=== PATIENT | female | born 1945 | race Caucasian/White ===

== ENCOUNTER 2016-08-10 10:31 | Inpatient (IN) | payer MEDICARE, OTHER ==
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
--- NOTE | 2016-08-03 18:29 | HP ---
HISTORY AND PHYSICAL: DATE OF SURGERY: 08/10/16 PROCEDURE: Right total hip arthroplasty. CHIEF COMPLAINT: Right hip pain. HISTORY OF PRESENT ILLNESS: Ms. Gutiérrez is a 71-year-old female with complaints of right hip pain. S he has failed conservative management and has elected to proceed with a right total hip arthroplasty . The surgery is scheduled for 08/10/[address] Mustafa. PAST MEDICAL HISTORY: Hypothyroidism, obesity, asthma, depression, history of TIA, and high cholest william. PAST SURGICAL HISTORY: Bilateral total knee arthroplasties, cholecystectomy. CURRENT MEDICATIONS: 1. Buspirone 50 mg. 2. Venlafaxine ER 150 mg. 3. Omeprazole 20 mg. 4. Levothyroxine. 5. Atorvastatin calcium 40 mg. 6. Diclofenac 75. 7. VESIcare 5 mg. 8. Gabapentin 300 mg. 9. Multivitamin. 10. Potassium. 11. Oxybutynin chloride. ALLERGIES: DILANTIN. FAMILY HISTORY: Heart disease. SOCIAL HISTORY: She is a 71-year-old female. She lives with her [id number]. She does not smoke , use drugs or alcohol. REVIEW OF SYSTEMS: A complete 14-point review of systems was reviewed with the patient. It is posi tive for hypothyroidism. PHYSICAL EXAMINATION GENERAL: She is well developed, well nourished. She is in no acute distress. VITAL SIGNS: She stands 5 feet 4 inches tall, weighs 218 pounds. Her blood pressure is 138/91, her heart rate is 81. HEENT: Normocephalic, atraumatic. NECK: Supple. No palpable lymph nodes. Trachea is midline. PULMONARY: Lungs are clear to auscultation. CARDIO: Regular rate and rhythm. Strong S1, S2. ABDOMEN: Soft, nontender, and nondistended. MUSCULOSKELETAL: Right lower extremity, skin intact. She has limited internal and external rotatio n of her right hip. She walks with an antalgic type gait favoring her right leg. Her lower extremi ty muscle group strengths are intact to 5/5. She has intact sensation. 2+ dorsalis pedis pulses. NEUROLOGIC: She is alert and oriented x3. Cranial nerves II through XII are intact. ASSESSMENT AND PLAN: Ms. Gutiérrze is a 71-year-old female with complaints of right hip pain secondary to advanced osteoarthritis. She has failed conservative management and has elected to proceed with a right total hip arthroplasty. The surgery is scheduled for 08/10/[address] Mustafa d iscussed the risks and benefits of the surgery at today's visit and all of her questions were answer ed. Coumadin, Percocet, and Colace were sent to her pharmacy for postoperative pain control and DVT prophylaxis. She will see Dr. Mustafa back 10 to 14 days after the surgery. KOLBY RICHMOND [id number]/[facility] #: [id number]
[~2016-08-10 10:31] MED LIST: Buffered Lidocaine 1% SYRIN* 3 ML/SYR SYRINGE INTRADERM ONE; Dexamethasone IV* 4 MG/ML 1 ML (4 MG) IV SLOW PU ONE; Dexmedetomidine* 200 MCG/2 ML 2 ML VIAL ONE; DiMENhydriNATE IV* 50 MG/ML VIAL IV PUSH PRN; Famotidine IV* 10 MG/ML 2 ML (20 mg) IV ONE; HYDROmorphone* 1 MG/ML 1 ML SYR ONE; Midazolam* 1 MG/ML 2 ML VIAL (2 MG) ONE; Morphine PF AMP (0.5MG/ML)* 5 MG/10 ML AMP ONE; Ondansetron INJ* 2 MG/ML VIAL IV PRN; PROCHLORPERAZINE INJ 5 MG/ML 2 ML VIAL IV PRN; fentaNYL* 50 MCG/ML 2 ML VIAL (100 MCG VIAL) IV PRN; fentaNYL* 50 MCG/ML 2 ML VIAL (100 MCG VIAL) ONE
[2016-08-10] MEDS ORDERED: ceFAZolin 2 GM PREMIX(*) 2 GM/50 ML BAG IVPB ONE (10:48)
[2016-08-10] MEDS ORDERED: Famotidine IV* 10 MG/ML 2 ML (20 mg) ONE (10:48)
[2016-08-10] MEDS ORDERED: Dexamethasone IV* 4 MG/ML 1 ML (4 MG) ONE (10:48)
[2016-08-10] MEDS ORDERED: Bupivacaine 0.5% SDV PF* 30 ML VIAL ONE (10:49)
[2016-08-10] MEDS ORDERED: Propofol* 10 MG/ML 20 ML BTL IV PUSH ONE ×2 (10:49→14:44)
[2016-08-10] MEDS ORDERED: Dexmedetomidine* 200 MCG/2 ML 2 ML VIAL ONE (10:49)
[2016-08-10] MEDS ORDERED: HYDROmorphone* 1 MG/ML 1 ML SYR ONE ×2 (10:51→13:41)
[2016-08-10] MEDS ORDERED: fentaNYL* 50 MCG/ML 2 ML VIAL (100 MCG VIAL) ONE (12:37)
[2016-08-10] MEDS ORDERED: VASOPRESSIN 20 UNITS/ML 1 ML VIAL ONE (13:27)
--- NOTE | 2016-08-10 14:05 | RAD ---
INDICATION: Total right hip replacement intraoperative study. TECHNIQUE: An AP view of the right hip was obtained in the operating room. FINDINGS: The patient is undergoing a total right hip replacement surgery. The acetabular prostheses appears in place. There is a femoral prostheses template in place. IMPRESSION: INTRAOPERATIVE CONTROL FILMS.
[2016-08-10] MEDS ORDERED: Polyethylene Glycol 3350* 17 GM PACKET PO PRN (15:08)
[2016-08-10] MEDS ORDERED: diPHENhydraMINE IV* 50 MG/ML 1 ml VIAL (BENADRYL) IV PRN ×2 (15:08→15:11)
[2016-08-10] MEDS ORDERED: Acetaminophen TAB* 325 MG PO PRN (15:08)
[2016-08-10] MEDS ORDERED: oxyCODONE TAB* 5 MG TAB PO PRN (15:08)
[2016-08-10] MEDS ORDERED: oxyCODONE/Acetamin 5/325 MG* TAB PO PRN ×2 (15:08)
[2016-08-10] MEDS ORDERED: Magnesium Hydroxide LIQ* 30 ML UDC PO PRN (15:08)
[2016-08-10] MEDS ORDERED: Bisacodyl SUPP* 10 MG SUPP PR PRN (15:08)
[2016-08-10] MEDS ORDERED: Morphine INJ* 2 MG/ML 1 ML SYRINGE IV PRN (15:08)
[2016-08-10] MEDS ORDERED: LACTULOSE* 30 ML UDC PO PRN (15:08)
[2016-08-10] MEDS ORDERED: Ondansetron TAB* 4 MG PO PRN (15:08)
[2016-08-10] MEDS ORDERED: Naloxone* 0.4 MG/ML 1 ML VIAL IV PRN (15:11)
[2016-08-10] MEDS ORDERED: Ondansetron INJ* 2 MG/ML VIAL IV PRN (15:11)
[2016-08-10] MEDS ORDERED: DiMENhydriNATE IV* 50 MG/ML VIAL IV PUSH PRN (15:11)
[2016-08-10] MEDS ORDERED: PROCHLORPERAZINE INJ 5 MG/ML 2 ML VIAL IV PRN (15:11)
--- NOTE | 2016-08-10 16:12 | RAD ---
Indication: Right hip arthroplasty. 2 views of the right hip demonstrates bipolar right hip arthroplasty in satisfactory position noted. No evidence of periprosthetic fracture is noted. IMPRESSION: Right hip replacement in satisfactory position.
--- NOTE | 2016-08-10 16:13 | RAD ---
Indication: Right hip arthroplasty. Single view of the pelvis demonstrates right hip bipolar arthroplasty in place. Components appear to be well seated. Pelvic ring is grossly intact where visualized. IMPRESSION: Right hip replacement in satisfactory position.
[2016-08-10] MEDS ORDERED: diPHENhydraMINE IV* 50 MG/ML 1 ml VIAL (BENADRYL) ONE (16:41)
[2016-08-10] MEDS ORDERED: Warfarin TAB(*) 6 MG PO ONE (17:00)
[2016-08-10] MEDS: ceFAZolin 1 GM in Dextrose (*) 1 GM/50 ML BAG IVPB SCH (17:49)
[2016-08-10] MEDS: Nalbuphine* 20 MG/ML 1 ML VIAL IV PRN (18:00)
[2016-08-10] MEDS: oxyCODONE/Acetamin 5/325 MG* TAB PO PRN (19:36)
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
--- NOTE | 2016-08-10 20:55 | CONS ---
MEDICAL CONSULTATION REPORT:* ADDENDUM: Please note that Plavix was clarified with the patient. This is no longer an active medication. Review of her past hospitalization reveals that she was admitted in September of 2015 with an episode of confusion, which was concerning for either a TIA versus a complex migraine. Her aspirin was discontinued at that time and she was started on Plavix. The patient and her family are unsure of what the circumstances were of discontinuing the Plavix, but she is certain that she has not been taking that in several months and aspirin was not resumed. Would recommend discussing resuming a daily aspirin following discharge with her primary care provider. The patient has no known coronary disease or history of prior CVA, but certainly has multiple risk factors and may benefit from daily low-dose aspirin therapy but this would be contraindicated with the exception of only high-risk patients in the immediate postoperative period. In regards to DVT prophylaxis, Lovenox and Coumadin have been ordered by the orthopedic surgery team. KOLBY COTA [id number]/[facility] #: [id number] MTDD
[2016-08-10] MEDS: busPIRone TAB* 15 MG PO SCH (22:19)
[2016-08-10] MEDS: Gabapentin CAP(*) 300 MG PO SCH (22:20)
[2016-08-10] MEDS: Docusate CAP* 100 MG PO SCH (22:20)
[2016-08-11] MEDS: Nalbuphine* 20 MG/ML 1 ML VIAL IV PRN (00:24)
[2016-08-11] MEDS: ceFAZolin 1 GM in Dextrose (*) 1 GM/50 ML BAG IVPB SCH ×2 (00:24→08:17)
[2016-08-11] MEDS: oxyCODONE/Acetamin 5/325 MG* TAB PO PRN ×6 (00:26→22:32)
--- NOTE | 2016-08-11 02:28 | OP ---
OPERATIVE NOTE: DATE OF OPERATION: 08/10/16 DATE OF : 43 SURGEON: Attending Surgeon: Barbara Mustafa MD DEVICE PROCESSING ENGINEER: KOLBY Andres ANESTHESIOLOGIST: Nicholas Chou MD ANESTHESIA: Spinal. PRE-OP DIAGNOSIS: Severe end-stage degenerative osteoarthritis of the right hip joint. POST-OP DIAGNOSIS: Severe end-stage degenerative osteoarthritis of the right hip joint. OPERATIVE PROCEDURE: Right total hip arthroplasty. COMPLICATIONS: None. ESTIMATED BLOOD LOSS: 300 cc. SPECIMEN: Femoral head and acetabular reaming, sent to pathology. HARDWARE USED: This is Samson uncemented total hip hardware. For the acetabulum, a Tritanium natalia spherical Cluster Hole Shell size 50D with 125-mm cancellous bone screw. MDM cement with liner 38D. For the femoral stem, an accolade TMZF size 2.5 with 127-degree neck. For the MDM liner, a 22.2/3 8/38D liner. For the [place], LFIT femoral head 22.2 +8. BRIEF HISTORY/INDICATION: Ms. Gutiérrez is a 71-year-old female with several years of increasingly duc re right hip pain. She failed conservative treatment with antiinflammatories, pain medications, phy sical therapy, and ambulatory assistive devices. Radiographs confirmed [id number] osteoarthritis. Due to continued pain and decreased quality of life, she elected to undergo right total hip arthro plasty. Informed consent was obtained from the patient. She understood the risks of the procedure included but were not limited to bleeding, infection, damage to nearby structures, continued pain, need for f urther surgery, intraoperative fracture, nerve palsy, hardware failure or loosening, dislocation, le g length discrepancy, stroke, heart attack, blood clot, and . She wishes to proceed. INTRAOPERATIVE FINDINGS: Intraoperatively, the patient was noted to have severe end-stage arthritis with loss of cartilage along the entire acetabulum and femoral head. Significant osteophyte format ion around the acetabulum. DESCRIPTION OF PROCEDURE: Ms. Gutiérrez was identified in the preanesthesia unit. Her right lower extr emity was marked as the correct operative side. Informed consent was signed and placed in the chart . The patient was taken to the operating room and placed under spinal anesthesia. A Cunningham catheter was placed. She was placed in the left lateral decubitus position on the peg board. All bony prom inences were carefully padded. Right lower extremity was prepped and draped in the usual sterile fa shion. Preop time-out was made to correctly identify the patient's side and site once again. Appropriate p erioperative antibiotics were given. A 15-cm posterior skin incision was made with a 10 blade and c arried down to the lateral fascia layer. The lateral fascia layer was incised in line with the skin incision. Charnley retractor was placed. Piriformis and conjoined tendons were identified. These were elevated off the posterolateral femur using electrocautery and tagged with two #5 Ethibonds. N ext, electrocautery was used to make a standard posterolateral capsular flap. This capsule was tagg ed with two #5 Ethibonds. The hip was carefully dislocated. Lesser troch to the center of the femoral head measured 55 mm. A n oscillating saw was used to make the appropriate femoral neck cut. Femoral head was sent to patho logy. After appropriate placement of the retractors, the acetabulum was visualized. Long- handled knife w as used to remove any remaining labrum. Acetabulum was sequentially reamed up to a size 49. 49 tri al had excellent fit. A Tritanium cluster hole shell size 50D was chosen as the final cut. Good bl eeding bone bed was visualized. The Tritanium cup was impacted into the acetabulum without difficult y. There was satisfactory abductioning, good anteversion, and good stability. A 125 mm screw was p laced in the superoposterior quadrant for extra stability. An MDM cement with liner 38D was then im pacted into the acetabulum. The liner was checked and rechecked for stability and noted to be stabl e. Next, attention was turned to preparation of the femoral canal. Box cut osteotome and canal finder were used to enter the proximal femur. The femur was sequentially broached up to a size 2.5 and 2.5 broach had excellent stability. An 127-degree neck trial with a 22 +0/38D head and liner were chos en. Lesser troch to the center of the femoral head measured 52 mm. A +3 femoral head was chosen an d the head was reduced. Hip was taken through a range of motion and noted to be stable in all posit ions. All trials were carefully removed. Final implants shows an Accolade TMZF size 2.5 with a 127-degree neck. This was impacted into the femoral neck canal without difficulty. Good stability of the efren m and the canal. 22 +3 femoral head was chosen and the lesser troch to the center of the femoral he ad measured 52 mm. Therefore, a +8 femoral head was chosen. A 22.2 +8 LFIT V40 femoral head with an MDM X3 insert for MDM liner 22.2/38/38D. This was impacted onto the femoral neck. Lesser troch to the center of the femoral head measured 55 mm. The hip was reduced and taken through a range of mot ion. The hip was stable in all positions. There was good soft tissue tension. The hip was copious ly irrigated with sterile saline. Previously tagged capsule and tendons were reapproximated to the posterolateral femur through 2 troc hanteric drill holes. The lateral fascia layer was closed using interrupted #1 Vicryls. The hip wa s once again copiously irrigated with sterile saline. The rest of the incision was closed in a laye red fashion using 0 and 2-0 Vicryls. The skin was closed using running 3-0 Monocryl suture and Derm abond. Sterile Adaptic, 4x4s, and paper tapes were used to cover this. The patient's anesthesia was reversed without difficulty. She was taken to the PACU in stable condi tion. Intended weightbearing will be weightbearing as tolerated with posterior hip precautions. In tended DVT prophylaxis will be Coumadin with a Lovenox bridge. [id number]/[facility] #: [id number]
[2016-08-11] MEDS ORDERED: diPHENhydraMINE IV* 50 MG/ML 1 ml VIAL (BENADRYL) IV PRN (04:00)
[2016-08-11] MEDS ORDERED: Morphine INJ* 2 MG/ML 1 ML SYRINGE IV PRN (04:00)
[2016-08-11] MEDS ORDERED: oxyCODONE/Acetamin 5/325 MG* TAB PO PRN (04:00)
[2016-08-11] MEDS ORDERED: Ondansetron TAB* 4 MG PO PRN (04:00)
[2016-08-11] MEDS: Levothyroxine TAB* 75 MCG TAB PO SCH (05:39)
[2016-08-11 07:27] LABS: Hematocrit 31 % (35-47); Hemoglobin 10.3 g/dl (12.0-16.0)
[2016-08-11 07:36] LABS: Albumin 3.7 g/dL (3.2-5.2); BUN/Creatinine Ratio 19.4 (8-20); Calcium 8.4 mg/dL (8.6-10.3); EGFR African American 111.3 (>60); EGFR Non-African American 86.5 (>60); Globulin 1.9 g/dL (2-4); Potassium 4.3 mmol/L (3.5-5.0); Total Bilirubin 0.6 mg/dL (0.2-1.0); Total Protein 5.6 g/dL (6.4-8.9)
[2016-08-11] MEDS: Docusate CAP* 100 MG PO SCH ×2 (08:18→20:09)
[2016-08-11] MEDS: CMC:Solifenacin(NF) 5 MG TAB PO SCH (08:18)
[2016-08-11] MEDS: Venlafaxine EXT RELEASE CAP* 75 MG PO SCH (08:18)
[2016-08-11] MEDS: Omeprazole CAP* 20 MG PO SCH (08:19)
[2016-08-11] MEDS: busPIRone TAB* 15 MG PO SCH ×2 (08:19→20:10)
[2016-08-11] MEDS: Albuterol HFA INHALER* 8 gm MDI INH PRN (08:26)
[2016-08-11] MEDS ORDERED: Atorvastatin* 40 MG TAB PO SCH (09:00)
--- NOTE | 2016-08-11 10:00 | PN ---
Progress Note - Progress Note SOAP: Subjective: Pt. is alert, pain is controlled. Objective: RLE - dressing c/d/i. thigh soft, distally +df/pf, full sens lt, 2+ dp pulse. Vital Signs: Temp Pulse Resp BP Pulse Ox 98.0 F 78 16 101/75 94 08/11/16 07:27 08/11/16 07:27 08/11/16 09:52 08/11/16 07:27 08/11/16 07:27 Laboratory Results - last 24 hr 08/11/16 08/11/16 08/11/16 07:14 07:14 07:14 Hgb 10.3 L Hct 31 L INR (Anticoag Therapy) 1.06 Sodium 135 Potassium 4.3 Chloride 101 Carbon Dioxide 28 Anion Gap 6 BUN 13 Creatinine 0.67 Est GFR ( Amer) 111.3 Est GFR (Non-Af Amer) 86.5 BUN/Creatinine Ratio 19.4 Glucose 129 H Calcium 8.4 L Total Bilirubin 0.60 AST 39 ALT 42 Alkaline Phosphatase 101 Total Protein 5.6 L Albumin 3.7 Globulin 1.9 L Albumin/Globulin Ratio 1.9 Assessment: 71 yo F pod 1 s/p RTHA Plan: wbat with post hip precautions pt/ot 8 mg coumadin tonight with lovenox bridge xrays satisfactory
--- NOTE | 2016-08-11 10:36 | PN ---
Subjective Date of Service: 08/11/16 Interval History: Patient offers no acute complaints. She states that her pain is well controlled. No CP, SOB, cough, abdominal pain, n/v. Objective Active Medications: Acetaminophen (Tylenol Tab*) 650 mg PO Q4H PRN PRN Reason: PAIN OR TEMPERATURE Albuterol (Ventolin Hfa Inhaler*) 1 puff INH QID PRN PRN Reason: SOB/wheeze Last Admin: 08/11/16 08:26 Dose: 1 puff Atorvastatin Calcium (Lipitor*) 40 mg PO DAILY [facility] Last Admin: 08/11/16 08:18 Dose: 40 mg Bisacodyl (Dulcolax Supp*) 10 mg [place] DAILY PRN PRN Reason: constipation Buspirone HCl (Buspar Tab *) 22.5 mg PO BID [facility] Last Admin: 08/11/16 08:19 Dose: 22.5 mg Diphenhydramine HCl (Benadryl Iv*) 12.5 mg IV Q6H PRN PRN Reason: PRURITIS Docusate Sodium (Colace Cap*) 100 mg PO BID [facility] Last Admin: 08/11/16 08:18 Dose: 100 mg Enoxaparin Sodium (Lovenox(*)) 30 mg SUBCUT Q24H [facility] Gabapentin (Neurontin Cap(*)) 600 mg PO BEDTIME [facility] Last Admin: 08/10/16 22:20 Dose: 600 mg Lactated Ringer's (Lactated Ringers 1000 Ml Bag*) 1,000 mls @ 100 mls/hr IV PER RATE [facility] Last Admin: 08/11/16 04:00 Dose: 100 mls/hr Lactulose (Lactulose*) 30 ml PO Q6H PRN PRN Reason: constipation Levothyroxine Sodium (Synthroid Tab*) 75 mcg PO 0600 [facility] Last Admin: 08/11/16 05:39 Dose: 75 mcg Magnesium Hydroxide (Milk Of Magnesia Liq*) 30 ml PO Q6H PRN PRN Reason: constipation Morphine Sulfate (Morphine Inj (Syringe)*) 2 mg IV Q2H PRN PRN Reason: PAIN Omeprazole (Prilosec Cap*) 20 mg PO DAILY [facility] Last Admin: 08/11/16 08:19 Dose: 20 mg Ondansetron HCl (Zofran Tab*) 4 mg PO Q6H PRN PRN Reason: NAUSEA Oxycodone HCl (Roxycodone Tab*) 10 mg PO Q4H PRN PRN Reason: SEVERE PAIN Oxycodone/Acetaminophen (Percocet 5/325 Tab*) 1 tab PO Q3H PRN PRN Reason: PAIN - MODERATE Oxycodone/Acetaminophen (Percocet 5/325 Tab*) 2 tab PO Q3H PRN PRN Reason: PAIN - MODERATE Last Admin: 08/11/16 09:52 Dose: 2 tab Polyethylene Glycol/Electrolytes (Miralax*) 17 gm PO DAILY PRN PRN Reason: Constipation Solifenacin (Vesicare(Nf)) 5 mg PO DAILY [facility] Last Admin: 08/11/16 08:18 Dose: 5 mg Venlafaxine HCl (Effexor Xr Cap*) 150 mg PO DAILY [facility] Last Admin: 08/11/16 08:18 Dose: 150 mg Warfarin Sodium (Coumadin Tab(*)) 8 mg PO ONCE@1700 ONE PRN Reason: Protocol Stop: 08/11/16 17:01 Vital Signs: Temp Pulse Resp BP Pulse Ox 98.0 F 78 16 101/75 94 08/11/16 07:27 08/11/16 07:27 08/11/16 09:52 08/11/16 07:27 08/11/16 07:27 Appearance: Well appearing in NAD Neck: NL Appearance and Movements; NL JVP Respiratory: Symmetrical Chest Expansion and Respiratory Effort, Clear to Auscultation Cardiovascular: NL Sounds; No Murmurs; No JVD, RRR Abdominal: NL Sounds; No Tenderness; No Distention Extremities: No Edema, - - hip immobilizer in place Skin: No Rash or Ulcers Neurological: Alert and Oriented x 3 Result Diagrams: 08/11/16 07:14 08/11/16 07:14 Assess/Plan/Problems-Billing Assessment: This is a 71 yo female with a h/o TBI with subsequent mild cognitive impairment as well as HTN, HLD, hypothyroidism, migraine HAs, mild RAD who is s/p R HUGO by Dr Msutafa 08/10/16. Hospitalist group has been consulted for medical co- management postoperatively. - Patient Problems (1) Status post hip replacement Comment: POD #1 Management per ortho Good pain control (2) Hyperglycemia Comment: FBG mildly elevated this am Will check HgbA1c, may be due recent surgery or a late snack (3) HTN (hypertension) Comment: Normotensive postoperatively She is not on any home antihypertensives Cont to monitor (4) TBI (traumatic brain injury) Comment: Mild cognitive impairment (5) Elevated transaminase level Comment: Elevated ALT and Alk phos noted on pre-op labs Repeat CMP this am shows resolution No abdominal complaints No further investigation necessary at this time (6) Asthma Comment: No exacerbation Continue prn albuterol. (7) Hyperlipidemia Comment: Continue statin. (8) Hypothyroid Comment: Continue levothyroxine. Recent TSH 2.8 Status and Disposition: Discharge planning per ortho. No acute medical concerns.
[2016-08-11] MEDS: Enoxaparin(*) 30 MG/0.3 ML SYR SUBCUT SCH (12:58)
[2016-08-11] MEDS ORDERED: Warfarin TAB(*) 4 MG PO ONE (17:00)
[2016-08-11] MEDS: Gabapentin CAP(*) 300 MG PO SCH (20:09)
[2016-08-12] MEDS: oxyCODONE/Acetamin 5/325 MG* TAB PO PRN (03:12)
[2016-08-12] MEDS: Albuterol HFA INHALER* 8 gm MDI INH PRN (06:12)
[2016-08-12] MEDS: Levothyroxine TAB* 75 MCG TAB PO SCH (06:38)
[2016-08-12 07:03] LABS: Hematocrit 31 % (35-47); Hemoglobin 10.5 g/dl (12.0-16.0); Mean Platelet Volume 8 um3 (7.4-10.4)
[2016-08-12] MEDS: CMC:Solifenacin(NF) 5 MG TAB PO SCH (08:55)
[2016-08-12] MEDS: busPIRone TAB* 15 MG PO SCH ×2 (08:55→20:47)
[2016-08-12] MEDS: Omeprazole CAP* 20 MG PO SCH (08:55)
[2016-08-12] MEDS: Venlafaxine EXT RELEASE CAP* 75 MG PO SCH (08:56)
[2016-08-12] MEDS: Docusate CAP* 100 MG PO SCH ×2 (08:56→20:47)
[2016-08-12] MEDS: oxyCODONE TAB* 5 MG TAB PO PRN ×3 (08:56→16:45)
--- NOTE | 2016-08-12 09:41 | PN ---
Progress Note - Progress Note SOAP: Subjective: Pt. is alert, having moderate pain today. Objective: RLE - dressing changed, inc c/d/i. thigh soft. distally nvi. Vital Signs: Temp Pulse Resp BP Pulse Ox 98.0 F 80 20 134/54 93 08/12/16 08:11 08/12/16 08:11 08/12/16 08:56 08/12/16 08:11 08/12/16 08:11 Laboratory Results - last 24 hr 08/11/16 08/12/16 08/12/16 07:14 06:51 06:51 Hgb 10.5 L Hct 31 L Plt Count 166 MPV 8 INR (Anticoag Therapy) 1.56 H Hemoglobin A1c 5.5 Assessment: 71 yo F pod 2 s/p RTHA Plan: wbat pt/ot post hip precautions 6 mg coumadin tonight, cont lovenox bridge plan d/c to home tomorrow am with vns
--- NOTE | 2016-08-12 10:49 | PN ---
Subjective Date of Service: 08/12/16 Interval History: Patient reports that she is doing fairly well this am. She is having some pain but reports it is manageable. Denies cough, SOB or CP. Denies abd pain, n/v Objective Active Medications: Acetaminophen (Tylenol Tab*) 650 mg PO Q4H PRN PRN Reason: PAIN OR TEMPERATURE Albuterol (Ventolin Hfa Inhaler*) 1 puff INH QID PRN PRN Reason: SOB/wheeze Last Admin: 08/12/16 06:12 Dose: 1 puff Atorvastatin Calcium (Lipitor*) 40 mg PO BEDTIME [facility] Bisacodyl (Dulcolax Supp*) 10 mg [place] DAILY PRN PRN Reason: constipation Buspirone HCl (Buspar Tab *) 22.5 mg PO BID [facility] Last Admin: 08/12/16 08:55 Dose: 22.5 mg Diphenhydramine HCl (Benadryl Iv*) 12.5 mg IV Q6H PRN PRN Reason: PRURITIS Docusate Sodium (Colace Cap*) 100 mg PO BID [facility] Last Admin: 08/12/16 08:56 Dose: 100 mg Enoxaparin Sodium (Lovenox(*)) 30 mg SUBCUT Q24H [facility] Last Admin: 08/11/16 12:58 Dose: 30 mg Gabapentin (Neurontin Cap(*)) 600 mg PO BEDTIME [facility] Last Admin: 08/11/16 20:09 Dose: 600 mg Lactated Ringer's (Lactated Ringers 1000 Ml Bag*) 1,000 mls @ 100 mls/hr IV PER RATE [facility] Last Admin: 08/11/16 04:00 Dose: 100 mls/hr Lactulose (Lactulose*) 30 ml PO Q6H PRN PRN Reason: constipation Levothyroxine Sodium (Synthroid Tab*) 75 mcg PO 0600 [facility] Last Admin: 08/12/16 06:38 Dose: 75 mcg Magnesium Hydroxide (Milk Of Magnesia Liq*) 30 ml PO Q6H PRN PRN Reason: constipation Morphine Sulfate (Morphine Inj (Syringe)*) 2 mg IV Q2H PRN PRN Reason: PAIN Omeprazole (Prilosec Cap*) 20 mg PO DAILY [facility] Last Admin: 08/12/16 08:55 Dose: 20 mg Ondansetron HCl (Zofran Tab*) 4 mg PO Q6H PRN PRN Reason: NAUSEA Oxycodone HCl (Roxycodone Tab*) 10 mg PO Q4H PRN PRN Reason: SEVERE PAIN Last Admin: 08/12/16 08:56 Dose: 10 mg Oxycodone/Acetaminophen (Percocet 5/325 Tab*) 1 tab PO Q3H PRN PRN Reason: PAIN - MODERATE Oxycodone/Acetaminophen (Percocet 5/325 Tab*) 2 tab PO Q3H PRN PRN Reason: PAIN - MODERATE Last Admin: 08/12/16 03:12 Dose: 2 tab Polyethylene Glycol/Electrolytes (Miralax*) 17 gm PO DAILY PRN PRN Reason: Constipation Solifenacin (Vesicare(Nf)) 5 mg PO DAILY [facility] Last Admin: 08/12/16 08:55 Dose: 5 mg Venlafaxine HCl (Effexor Xr Cap*) 150 mg PO DAILY [facility] Last Admin: 08/12/16 08:56 Dose: 150 mg Warfarin Sodium (Coumadin Tab(*)) 6 mg PO ONCE ONE PRN Reason: Protocol Stop: 08/12/16 17:01 Vital Signs: Temp Pulse Resp BP Pulse Ox 98.0 F 80 20 134/54 93 08/12/16 08:11 08/12/16 08:11 08/12/16 08:56 08/12/16 08:11 08/12/16 08:11 Appearance: Well appearing, slightly uncomfortable but NAD Neck: NL Appearance and Movements; NL JVP Respiratory: Symmetrical Chest Expansion and Respiratory Effort, Clear to Auscultation Cardiovascular: NL Sounds; No Murmurs; No JVD, RRR Abdominal: NL Sounds; No Tenderness; No Distention Extremities: No Edema Skin: No Rash or Ulcers Neurological: Alert and Oriented x 3 Result Diagrams: 08/12/16 06:51 08/11/16 07:14 Assess/Plan/Problems-Billing Assessment: This is a 71 yo female with a h/o TBI with subsequent mild cognitive impairment as well as HTN, HLD, hypothyroidism, migraine HAs, mild RAD who is s/p R HUGO by Dr Mustafa 08/10/16. Hospitalist group has been consulted for medical co- management postoperatively. - Patient Problems (1) Status post hip replacement Comment: POD #2 Management per ortho Good pain control (2) Hyperglycemia Comment: FBG mildly elevated yesterday HgbA1c 5.5% May be due recent surgery or a late snack No intervention or further monitoring necessary (3) HTN (hypertension) Comment: Normotensive postoperatively She is not on any home antihypertensives Cont to monitor (4) TBI (traumatic brain injury) Comment: Mild cognitive impairment (5) Elevated transaminase level Comment: Elevated ALT and Alk phos noted on pre-op labs Repeat CMP this am shows resolution No abdominal complaints No further investigation necessary at this time (6) Asthma Comment: No exacerbation Continue prn albuterol. (7) Hyperlipidemia Comment: Continue statin. (8) Hypothyroid Comment: Continue levothyroxine. Recent TSH 2.8 Status and Disposition: Discharge planning per ortho. No acute medical concerns.
[2016-08-12] MEDS: Enoxaparin(*) 30 MG/0.3 ML SYR SUBCUT SCH (13:03)
[2016-08-12] MEDS ORDERED: Warfarin TAB(*) 6 MG PO ONE (17:00)
[2016-08-12] MEDS: Gabapentin CAP(*) 300 MG PO SCH (20:47)
[2016-08-12] MEDS ORDERED: Atorvastatin* 40 MG TAB PO SCH (21:00)
[2016-08-13] MEDS: oxyCODONE TAB* 5 MG TAB PO PRN ×2 (01:56→06:07)
[2016-08-13] MEDS: Levothyroxine TAB* 75 MCG TAB PO SCH (06:07)
[2016-08-13 07:27] LABS: Hematocrit 29 % (35-47)
[2016-08-13] MEDS: Docusate CAP* 100 MG PO SCH (07:58)
[2016-08-13] MEDS: busPIRone TAB* 15 MG PO SCH (07:58)
[2016-08-13] MEDS: Venlafaxine EXT RELEASE CAP* 75 MG PO SCH (07:58)
[2016-08-13] MEDS: Omeprazole CAP* 20 MG PO SCH (07:58)
[2016-08-13] MEDS: CMC:Solifenacin(NF) 5 MG TAB PO SCH (07:59)
[2016-08-13] MEDS: oxyCODONE/Acetamin 5/325 MG* TAB PO PRN (09:59)
--- NOTE | 2016-08-13 10:00 | PN ---
Progress Note - Progress Note SOAP: Subjective: []Patient seen OOB in chair. Her present. No new complaints. Denies, SOB, CP or dizziness. Ready to go home this afternoon. Objective: [] Vital Signs Temp 98.0 F 08/13/16 07:41 Pulse 86 08/13/16 07:41 Resp 16 08/13/16 08:07 BP 122/47 08/13/16 07:41 Pulse Ox 92 08/13/16 08:00 Intake & Output 08/12/16 08/13/16 08/13/16 18:59 06:59 18:59 Intake Total 840 1200 Output Total 0 150 Balance -1210 1050 Intake: Oral 840 1200 Output: Urine 2049 150 Other: Estimated Void Medium Laboratory Results - last 24 hr 08/13/16 08/13/16 06:40 06:40 Hgb 10.0 L Hct 29 L INR (Anticoag Therapy) 2.47 H Right hip incision benign Calf non tender and soft no edema +DF/PF right ankle Assessment: []s/p Right total hip arthroplasty POD #3 Plan: []PT this am Hold Coumadin today discharge home today follow up 10- 14 days as scheduled with Dr. Mustafa
[2016-08-13] MEDS: Enoxaparin(*) 30 MG/0.3 ML SYR SUBCUT SCH (12:00)
[2016-08-13 12:02] VITALS: BP 155/72
--- NOTE | 2016-08-13 12:27 | PN ---
Subjective Date of Service: 08/13/16 Interval History: Plan for discharge home today by ortho. Patient offers no acute complaints. Objective Active Medications: Acetaminophen (Tylenol Tab*) 650 mg PO Q4H PRN PRN Reason: PAIN OR TEMPERATURE Last Admin: 08/12/16 14:07 Dose: 650 mg Albuterol (Ventolin Hfa Inhaler*) 1 puff INH QID PRN PRN Reason: SOB/wheeze Last Admin: 08/12/16 06:12 Dose: 1 puff Atorvastatin Calcium (Lipitor*) 40 mg PO BEDTIME [facility] Last Admin: 08/12/16 20:47 Dose: 40 mg Bisacodyl (Dulcolax Supp*) 10 mg [place] DAILY PRN PRN Reason: constipation Buspirone HCl (Buspar Tab *) 22.5 mg PO BID [facility] Last Admin: 08/13/16 07:58 Dose: 22.5 mg Diphenhydramine HCl (Benadryl Iv*) 12.5 mg IV Q6H PRN PRN Reason: PRURITIS Docusate Sodium (Colace Cap*) 100 mg PO BID [facility] Last Admin: 08/13/16 07:58 Dose: 100 mg Enoxaparin Sodium (Lovenox(*)) 30 mg SUBCUT Q24H [facility] Last Admin: 08/13/16 12:00 Dose: 30 mg Gabapentin (Neurontin Cap(*)) 600 mg PO BEDTIME [facility] Last Admin: 08/12/16 20:47 Dose: 600 mg Lactated Ringer's (Lactated Ringers 1000 Ml Bag*) 1,000 mls @ 100 mls/hr IV PER RATE [facility] Last Admin: 08/11/16 04:00 Dose: 100 mls/hr Lactulose (Lactulose*) 30 ml PO Q6H PRN PRN Reason: constipation Levothyroxine Sodium (Synthroid Tab*) 75 mcg PO 0600 [facility] Last Admin: 08/13/16 06:07 Dose: 75 mcg Magnesium Hydroxide (Milk Of Magnesia Liq*) 30 ml PO Q6H PRN PRN Reason: constipation Last Admin: 08/13/16 07:57 Dose: 30 ml Morphine Sulfate (Morphine Inj (Syringe)*) 2 mg IV Q2H PRN PRN Reason: PAIN Omeprazole (Prilosec Cap*) 20 mg PO DAILY [facility] Last Admin: 08/13/16 07:58 Dose: 20 mg Ondansetron HCl (Zofran Tab*) 4 mg PO Q6H PRN PRN Reason: NAUSEA Oxycodone HCl (Roxycodone Tab*) 10 mg PO Q4H PRN PRN Reason: SEVERE PAIN Last Admin: 08/13/16 06:07 Dose: 10 mg Oxycodone/Acetaminophen (Percocet 5/325 Tab*) 1 tab PO Q3H PRN PRN Reason: PAIN - MODERATE Oxycodone/Acetaminophen (Percocet 5/325 Tab*) 2 tab PO Q3H PRN PRN Reason: PAIN - MODERATE Last Admin: 08/13/16 09:59 Dose: 2 tab Polyethylene Glycol/Electrolytes (Miralax*) 17 gm PO DAILY PRN PRN Reason: Constipation Solifenacin (Vesicare(Nf)) 5 mg PO DAILY [facility] Last Admin: 08/13/16 07:59 Dose: 5 mg Venlafaxine HCl (Effexor Xr Cap*) 150 mg PO DAILY [facility] Last Admin: 08/13/16 07:58 Dose: 150 mg Vital Signs: Temp Pulse Resp BP Pulse Ox 98.2 F 92 16 155/72 93 08/13/16 11:40 08/13/16 11:40 08/13/16 11:40 08/13/16 11:40 08/13/16 11:40 Oxygen Devices in Use Now: None Appearance: Well appearing, in NAD Neck: NL Appearance and Movements; NL JVP Respiratory: Symmetrical Chest Expansion and Respiratory Effort, Clear to Auscultation Cardiovascular: NL Sounds; No Murmurs; No JVD, RRR Abdominal: NL Sounds; No Tenderness; No Distention Extremities: No Edema Skin: No Rash or Ulcers Neurological: Alert and Oriented x 3 Result Diagrams: 08/13/16 06:40 08/11/16 07:14 Assess/Plan/Problems-Billing Assessment: This is a 71 yo female with a h/o TBI with subsequent mild cognitive impairment as well as HTN, HLD, hypothyroidism, migraine HAs, mild RAD who is s/p R HUGO by Dr Mustafa 08/10/16. Hospitalist group has been consulted for medical co- management postoperatively. - Patient Problems (1) Status post hip replacement Comment: POD #3 Discharge today per ortho (2) Hyperglycemia Comment: FBG mildly elevated yesterday HgbA1c 5.5% May be due recent surgery or a late snack No intervention or further monitoring necessary (3) HTN (hypertension) Comment: Normotensive postoperatively She is not on any home antihypertensives (4) TBI (traumatic brain injury) Comment: Mild cognitive impairment (5) Elevated transaminase level Comment: Elevated ALT and Alk phos noted on pre-op labs Repeat CMP this am shows resolution No abdominal complaints No further investigation necessary at this time (6) Asthma Comment: No exacerbation Continue prn albuterol. (7) Hyperlipidemia Comment: Continue statin. (8) Hypothyroid Comment: Continue levothyroxine. Recent TSH 2.8 Status and Disposition: Discharge home per ortho today. No medical complications during hospital stay. No changes recommended to home medications. Suggest discussing resuming daily ASA with PCP once she has completed recommended course of Coumadin.
--- NOTE | 2016-08-14 08:30 | DS ---
DISCHARGE SUMMARY: DATE OF ADMISSION: 08/10/16 DATE OF DISCHARGE: 08/13/16 ADMITTING PROVIDER: Dr. Barbara Mustafa ADMISSION DIAGNOSIS: Severe end-stage degenerative osteoarthritis of the right hip. DISCHARGE DIAGNOSIS: Severe end-stage degenerative osteoarthritis of the right hip. SURGERY PERFORMED: Right total hip arthroplasty. HOSPITAL COURSE: The patient is a 71-year-old female who had several years of increasingly severe right hip pain. She failed conservative management with anti-inflammatories, pain medications, physical therapy and ambulatory assistive devices. Her preoperative x-rays revealed [id number] osteoarthritis. Due to continued severe pain and decreased quality of life she elected to proceed with surgical intervention and was taken to the operating room under the care of Dr. Barbara Mustafa on the date of 08/10/16. She tolerated the aforementioned procedure without any complications. She progressed satisfactorily with her physical therapy and occupational therapy goals remaining full weightbearing on the right lower extremity. She was followed by the medical team for her medical comorbidities and had no acute post-operative complications. It was felt that she was stable medically and orthopedically for discharge to home on the date of 08/13/16. CONDITION ON DISCHARGE: The patient is afebrile. Her vital signs are stable. Her hemoglobin and hematocrit are stable at 10.0 and 29. Her right hip incision is healing without evidence of infection. Her calf is soft and nontender. Her neurovascular status is intact with active dorsiflexion and plantar flexion. PLAN: Discharge to home. She will continue with her physical therapy exercise program. She will maintain total hip precautions. She will continue on Coumadin. We will hold Coumadin today 08/13/16. She will resume Coumadin on 08/14/16 taking 2 mg and again 2 mg on Saturday08/15/16. She will have repeat blood draws on 08/16/16 with subsequent Coumadin dosages to be recommended by the office. She will continue with the Colace and has prescription of Percocet for postoperative pain management. She may shower and will avoid submerging the incision in bathtub water. She will followup in 10 to 14 days in the office with Dr. Mustafa. We recommend the office be contacted if she develops increased pain at her incision, redness, drainage, calf pain or swelling, shortness of breath or chest pain. KOLBY HANNA [id number]/[facility] [place] #: [id number] JOEL
== END 2016-08-13 13:05 | disposition home or self-care (01) | DRG 470 ==
LOC: AA 10:31 → SSU 16:30
PROVIDERS: ADMIT Orthopaedic Surgery Adult Reconstructive Orthopaedic Surgery; ATTEND Orthopaedic Surgery Adult Reconstructive Orthopaedic Surgery
PROC: 0SR902A Replacement of Right Hip Joint with Metal on Polyethylene Synthetic Substitute, Uncemented, Open Approach (ICD-10-PCS; principal; 2016-08-10 12:00)
DX: M16.11 Unilateral primary osteoarthritis, right hip (principal); E66.9 Obesity, unspecified; E03.9 Hypothyroidism, unspecified; M25.751 Osteophyte, right hip; Z87.820 Personal history of traumatic brain injury; K21.9 Gastro-esophageal reflux disease without esophagitis; G43.909 Migraine, unspecified, not intractable, without status migrainosus; J45.909 Unspecified asthma, uncomplicated; G31.84 Mild cognitive impairment of uncertain or unknown etiology; E78.5 Hyperlipidemia, unspecified; Z96.653 Presence of artificial knee joint, bilateral; F41.9 Anxiety disorder, unspecified; R73.9 Hyperglycemia, unspecified; R74.0 Nonspecific elevation of levels of transaminase and lactic acid dehydrogenase [LDH]; Z79.899 Other long term (current) drug therapy; Z88.6 Allergy status to analgesic agent; Z88.8 Allergy status to other drugs, medicaments and biological substances; Z82.49 Family history of ischemic heart disease and other diseases of the circulatory system; Z68.37 Body mass index [BMI] 37.0-37.9, adult
CPT/HCPCS: 36415; 72170; 80053; 83036; 85014; 85018; 85049; 85610; 88304; 88311; 94760; A9270-GY; C1713; C1776; J0690; J1100; J1170; J1200; J1650; J2250; J2300; J2704; J3010

== ENCOUNTER 2017-01-17 08:18 | Inpatient (IN) | payer MEDICARE, OTHER ==
--- NOTE | 2017-01-11 22:08 | HP ---
HISTORY AND PHYSICAL: DATE OF SURGERY: 01/17/17 DATE OF OFFICE VISIT: 01/11/17 SURGEON: Barbara Mustafa MD * (DICTATED BY KOLBY RICHMOND) PROCEDURE: Left total hip arthroplasty. CHIEF COMPLAINT: Left hip pain. HISTORY OF PRESENT ILLNESS: Ms. Gutiérrez is a 72-year-old female with complaints of left hip pain secondary to advanced osteoarthritis. She has failed conservative management and has elected to proceed with a left total hip arthroplasty, which is scheduled for 01/17/[address] Mustafa. PAST MEDICAL HISTORY: Hypothyroidism, asthma, depression, history of TIA, and high cholesterol. PAST SURGICAL HISTORY: Bilateral TKA, right total hip arthroplasty and cholecystectomy. CURRENT MEDICATIONS: 1. Colace. 2. Buspirone. 3. Venlafaxine. 4. Omeprazole. 5. Levothyroxine. 6. Atorvastatin. 7. Calcium. 8. Diclofenac. 9. VESIcare. 10. Gabapentin. 11. Multivitamin. 12. Potassium. ALLERGIES: Allergies to DILANTIN. FAMILY HISTORY: Heart disease and stroke. SOCIAL HISTORY: She is a 72-year-old female. She lives with her brother-in- law. She does not smoke, use drugs, or alcohol. REVIEW OF SYSTEMS: A complete 14-point review of systems was reviewed with the patient, was all negative or noncontributory. PHYSICAL EXAMINATION GENERAL: She is well developed, well nourished, in no acute distress. VITAL SIGNS: She stands 5 feet 4 inches tall, weighs 211 pounds, her blood pressure is 130/84, heart rate is 64. HEENT: Normocephalic, atraumatic. NECK: Supple. No palpable lymph nodes. PULMONARY: Lungs clear to auscultation bilaterally. CARDIO: Regular rate and rhythm. Strong S1 and S2. ABDOMEN: Soft, nontender, nondistended. NEUROLOGIC: Alert and oriented x3. Cranial nerves II through XII are intact. MUSCULOSKELETAL: Left lower extremity, skin is intact. There are no open wounds or abrasions. She has decreased internal and external rotation of the left hip, but walks with an antalgic type gait. Her lower extremity muscle group strengths are intact at 5/5. She has 2+ dorsalis pedis pulses. Intact sensation. ASSESSMENT AND PLAN: Ms. Gutiérrez is a 72-year-old female complains of left hip pain secondary to advanced osteoarthritis. She has failed conservative management and has elected to proceed with a left total hip arthroplasty, which is scheduled for 01/17/[address] Mustafa discussed the risks and benefits of the surgery at today's visit and all of the questions were answered. Percocet and Coumadin were sent to her pharmacy for postoperative pain control and DVT prophylaxis. She will follow with Dr. Mustafa in 2 weeks after the surgery. KOLBY RICHMOND [id number]/[facility] #: [id number] MTDMelyssa
[~2017-01-17 08:18] MED LIST changes: +Buffered Lidocaine 0.9% SYRIN* 5 ML/SYR SYRINGE INTRADERM ONE; -Buffered Lidocaine 1% SYRIN* 3 ML/SYR SYRINGE INTRADERM ONE; -Dexamethasone IV* 4 MG/ML 1 ML (4 MG) IV SLOW PU ONE; -Dexmedetomidine* 200 MCG/2 ML 2 ML VIAL ONE; -DiMENhydriNATE IV* 50 MG/ML VIAL IV PUSH PRN; -HYDROmorphone* 1 MG/ML 1 ML SYR ONE; -Midazolam* 1 MG/ML 2 ML VIAL (2 MG) ONE; -Morphine PF AMP (0.5MG/ML)* 5 MG/10 ML AMP ONE; -Ondansetron INJ* 2 MG/ML VIAL IV PRN; -PROCHLORPERAZINE INJ 5 MG/ML 2 ML VIAL IV PRN; -fentaNYL* 50 MCG/ML 2 ML VIAL (100 MCG VIAL) IV PRN; -fentaNYL* 50 MCG/ML 2 ML VIAL (100 MCG VIAL) ONE
[2017-01-17] MEDS ORDERED: Famotidine IV* 10 MG/ML 2 ML (20 mg) ONE (08:24)
[2017-01-17] MEDS ORDERED: Buffered Lidocaine 0.9% SYRIN* 5 ML/SYR SYRINGE ONE (08:24)
[2017-01-17] MEDS ORDERED: ceFAZolin 2 GM PREMIX (*) 50 ML IVPB ONE (08:25)
[2017-01-17] MEDS ORDERED: KETAMINE HCL* 50 MG/ML 10 ML VIAL ONE (10:28)
[2017-01-17] MEDS ORDERED: Dexamethasone IV* 4 MG/ML 1 ML (4 MG) ONE (10:28)
[2017-01-17] MEDS ORDERED: Propofol* 10 MG/ML 20 ML BTL IV PUSH ONE (10:28)
[2017-01-17] MEDS ORDERED: Morphine PF AMP (0.5MG/ML)* 5 MG/10 ML AMP ONE (10:28)
[2017-01-17] MEDS ORDERED: Midazolam* 1 MG/ML 5 ML VIAL (5 MG) ONE (10:28)
[2017-01-17] MEDS ORDERED: Bupivacaine 0.5% SDV PF* 30 ML VIAL ONE (10:28)
[2017-01-17] MEDS ORDERED: fentaNYL* 50 MCG/ML 2 ML VIAL (100 MCG VIAL) ONE (10:28)
[2017-01-17] MEDS ORDERED: Ketorolac INJ* 30 MG/ML 1 ML VIAL ONE (10:28)
[2017-01-17] MEDS ORDERED: Ondansetron INJ* 2 MG/ML VIAL ONE (10:28)
[2017-01-17] MEDS ORDERED: Lidocaine 2% PF * 5 ML VIAL ONE (10:28)
[2017-01-17] MEDS ORDERED: Midazolam* 1 MG/ML 2 ML VIAL (2 MG) ONE (11:51)
[2017-01-17] MEDS ORDERED: Propofol* 500 MG/50 ML BTL ONE (11:57)
[2017-01-17] MEDS ORDERED: Phenylephrine INJ* 10 MG/ML 1 ML VIAL (10 MG) ONE (12:20)
[2017-01-17] MEDS ORDERED: fentaNYL* 50 MCG/ML 2 ML VIAL (100 MCG VIAL) IV PRN (12:49)
[2017-01-17] MEDS ORDERED: DiMENhydriNATE IV* 50 MG/ML VIAL IV PUSH PRN (12:49)
[2017-01-17] MEDS ORDERED: Ondansetron INJ* 2 MG/ML VIAL IV PRN ×2 (12:49→12:51)
[2017-01-17] MEDS ORDERED: Lactated Ringers 500 ml BAG* 500 ML IV PRN (12:51)
[2017-01-17] MEDS ORDERED: EPHEDrine (Pressors)* 50 MG/ML VIAL IV PUSH PRN (12:51)
[2017-01-17] MEDS ORDERED: Naloxone* 0.4 MG/ML 1 ML VIAL IV PRN (12:58)
[2017-01-17] MEDS ORDERED: Ropivacaine* 300 MG in NS 0.9% 250 ML* 240 ML EPIDURAL SCH (13:00)
--- NOTE | 2017-01-17 14:00 | RAD ---
Indication: Left hip replacement. Single view of the pelvis taken in the operating room demonstrates femoral reamer in place. Acetabular cup is in place. IMPRESSION: Intraoperative control films obtained for left hip replacement.
[2017-01-17] MEDS ORDERED: Polyethylene Glycol 3350* 17 GM PACKET PO PRN (14:31)
[2017-01-17] MEDS ORDERED: Acetaminophen TAB* 325 MG PO PRN (14:31)
[2017-01-17] MEDS ORDERED: Bisacodyl SUPP* 10 MG SUPP PR PRN (14:31)
[2017-01-17] MEDS ORDERED: Albuterol inh POWDER (NF) 1 PUFF MDI INH PRN (14:38)
[2017-01-17] MEDS ORDERED: diPHENhydraMINE IV* 50 MG/ML 1 ml VIAL (BENADRYL) ONE (15:07)
[2017-01-17] MEDS: diPHENhydraMINE IV* 50 MG/ML 1 ml VIAL (BENADRYL) IV PRN ×2 (15:09→22:01)
--- NOTE | 2017-01-17 15:23 | RAD ---
Indication: Left total hip replacement. 2 views left hip and an AP view the pelvis demonstrates left hip replacement in satisfactory position. No loosening is noted. IMPRESSION: Left hip replacement in satisfactory position.
[2017-01-17] MEDS ORDERED: Warfarin TAB(*) 6 MG PO ONE (17:00)
[2017-01-17] MEDS: Gabapentin CAP(*) 300 MG PO SCH (20:07)
[2017-01-17] MEDS: busPIRone TAB* 15 MG PO SCH (20:07)
[2017-01-17] MEDS: Atorvastatin* 40 MG TAB PO SCH (20:07)
[2017-01-17] MEDS: Docusate CAP* 100 MG PO SCH (20:07)
[2017-01-17] MEDS: ceFAZolin 1 GM in Dextrose (*) 1 GM/50 ML BAG IVPB SCH (20:13)
[2017-01-17] MEDS: Ketorolac INJ* 15 MG/ML 1 ML VIAL IV PRN (20:30)
[2017-01-18] MEDS: ceFAZolin 1 GM in Dextrose (*) 1 GM/50 ML BAG IVPB SCH ×2 (03:34→12:02)
[2017-01-18] MEDS: Ketorolac INJ* 15 MG/ML 1 ML VIAL IV PRN (04:57)
[2017-01-18] MEDS: Levothyroxine TAB* 75 MCG TAB PO SCH (05:12)
[2017-01-18] MEDS ORDERED: diPHENhydraMINE IV* 50 MG/ML 1 ml VIAL (BENADRYL) IV PRN (06:01)
[2017-01-18] MEDS ORDERED: Ondansetron TAB* 4 MG PO PRN (06:01)
[2017-01-18] MEDS ORDERED: Ondansetron INJ* 2 MG/ML VIAL IV PRN (06:01)
[2017-01-18] MEDS ORDERED: Morphine INJ* 4 MG/ML 1 ML CARPUJECT IV PRN (06:01)
[2017-01-18 06:46] LABS: Hematocrit 29 % (35-47); Hemoglobin 9.7 g/dl (12.0-16.0)
[2017-01-18] MEDS: oxyCODONE/Acetamin 5/325 MG* TAB PO PRN ×3 (06:49→17:50)
[2017-01-18 06:56] LABS: BUN/Creatinine Ratio 23.7 (8-20); Calcium 8.5 mg/dL (8.6-10.3); EGFR African American 95.9 (>60); EGFR Non-African American 74.6 (>60); Potassium 4.6 mmol/L (3.5-5.0)
--- NOTE | 2017-01-18 07:37 | PN ---
Progress Note - Progress Note Date of Service: 01/18/17 SOAP: Subjective: Pt. is alert, pain is well controlled this am. Objective: LLE - dressing c/d/i. distally +df/pf, full slt, 2+ dp pulse, thigh soft. Vital Signs: Temp Pulse Resp BP Pulse Ox 98.4 F 77 16 121/59 92 01/18/17 03:45 01/18/17 03:45 01/18/17 06:49 01/18/17 03:45 01/18/17 03:45 Laboratory Results - last 24 hr 01/18/17 01/18/17 01/18/17 06:32 06:32 06:32 Hgb 9.7 L Hct 29 L INR (Anticoag Therapy) 1.01 Sodium 132 L Potassium 4.6 Chloride 100 L Carbon Dioxide 27 Anion Gap 5 BUN 18 Creatinine 0.76 Est GFR ( Amer) 95.9 Est GFR (Non-Af Amer) 74.6 BUN/Creatinine Ratio 23.7 H Glucose 105 H Calcium 8.5 L Assessment: 72 yo F pod 1 s/p LTHA Plan: pt/ot wbat lle post hip precautions lovenox today, coumadin tonight. plan d/c to home 01/19
[2017-01-18] MEDS: Omeprazole CAP* 20 MG PO SCH (07:49)
[2017-01-18] MEDS: Docusate CAP* 100 MG PO SCH ×2 (08:46→19:45)
[2017-01-18] MEDS: CMCS:Solifenacin(NF) 5 MG TAB PO SCH (08:46)
[2017-01-18] MEDS: busPIRone TAB* 15 MG PO SCH ×2 (08:46→19:45)
[2017-01-18] MEDS: Venlafaxine EXT RELEASE CAP* 75 MG PO SCH (08:46)
[2017-01-18] MEDS ORDERED: Fexofenadine (NF) 60 MG TAB PO SCH (09:00)
[2017-01-18] MEDS ORDERED: Albuterol HFA INHALER* 8 gm MDI INH PRN (09:16)
--- NOTE | 2017-01-18 09:54 | OP ---
DATE OF OPERATION: 01/17/17 - ROOM #347 DATE OF : 43 SURGEON: Barbara Mustafa MD PROPAGATION MANAGER: KOLBY Andres. Herbert did help throughout the procedure with preparation of the leg, wound retraction, manipulation of the hip, and wound closure. ANESTHESIOLOGIST: Dr. Endy Bustos. ANESTHESIA: Spinal. PRE-OP DIAGNOSIS: Severe end-stage degenerative osteoarthritis of the left hip joint. POST-OP DIAGNOSIS: Severe end-stage degenerative osteoarthritis of the left hip joint. OPERATIVE PROCEDURE: Left total hip arthroplasty. INDICATIONS: Ms. Gutiérrez is a 72-year-old female with 6 months of increasingly severe left hip pain. She has failed conservative treatment with antiinflammatories, pain medications, physical therapy, and ambulatory assistive devices. Radiographs showed severe end-stage arthritis. She elected to undergo left total hip arthroplasty due to continued pain and decreased quality of life. Informed consent was obtained from the patient. She understood the risks of the procedure included, but were not limited to bleeding, infection, damage to nearby structures, continued pain, need for further surgery, intraoperative fracture, nerve palsy, hardware failure or loosening, dislocation, leg length discrepancy, stroke, heart attack, blood clot, and . She wished to proceed. COMPLICATIONS: None. SPECIMENS: Femoral head and acetabular reaming sent to Pathology. ESTIMATED BLOOD LOSS: 300 cc. HARDWARE USED: Uncemented Samson total hip hardware. For the cup, a Tritanium hemispherical acetabular shell 52E, a single 20-mm cancellous bone screw was used for extra stability. For the liner, an MDM cementless liner 42E. For the stem, an Accolade TMZF, size 3, 127-degree neck with a 28 -4 LFIT V40 femoral head and a scientologist MDM X3 insert 28/48/42E. INTRAOPERATIVE FINDINGS: Intraoperatively, the patient was noted to have significant osteopenia. She had complete loss of cartilage along the femoral head and acetabulum. DESCRIPTION OF PROCEDURE: Ms. Gutiérrez was identified in the preanesthesia unit. The left lower extremity was marked as the correct operative side. Informed consent was signed and placed in the chart. The patient was taken to the operating room and placed under spinal anesthesia. A Cunningham catheter was placed. She was placed in the right lateral decubitus position on the peg board. All bony prominences were well padded. Left lower extremity was prepped and draped in the usual sterile fashion. Preop time-out was made to correctly identify the patient's side and site. Appropriate perioperative antibiotics were given within 1 hour of incision. A 14-cm posterior hip incision was made with a 10 blade, carried down to the lateral fascial layer. The lateral fascial layer was incised in line with the skin incision. A Charnley retractor was placed. The piriformis and conjoint tendons were identified. These were elevated off the posterolateral femur using electrocautery. These were tagged with two #5 Ethibond's. Next, electrocautery was used to make a standard posterolateral capsular flap and this was also tagged with two #5 Ethibond's. The hip was carefully dislocated. Lesser troch to center of the femoral head measured 50 mm. Oscillating saw was used to make the appropriate femoral neck cut. Femoral head was sent to Pathology. The femur was carefully retracted anteriorly. A long-handled knife was used to remove any remaining labrum from the acetabular rim. The acetabulum was reamed up to a size 51. A good bleeding subchondral bone bed was obtained. The 51 trial had good fit. Final implant chosen was a Trident hemispherical acetabular shell 52E. This was impacted into the acetabulum without difficulty. The cup had excellent stability as well as appropriate anteversion and abduction angle. One 20-mm screw was placed in the superior posterior quadrant for extra stability. An MDM cementless liner was chosen and this was impacted into the acetabular cup without difficulty. Stability of the liner was checked and rechecked and noted to be stable. Attention was turned next to preparation of the femur. After appropriate placement of the retractor, the proximal femur was easily visualized. The canal finder was used to enter the proximal femoral. The femur was sequentially broached up to a size 3. Size 3 broach had good fit and stability. A 127-degree neck trial was chosen as well as a 28 +0 femoral head trial. Lesser troch to center of the femoral head measured 54 mm. Therefore, a 28 -4 head was chosen, with a 28/48/42E insert trial was chosen. The lesser troch to the center of the femoral head measured 60 mm. The hip was reduced and taken through a range of motion. The hip was stable in all positions with good soft tissue tension and appropriate leg length. The hip was carefully dislocated. All implant trials were carefully removed. Final femoral stem chosen was an Accolade TMZF size 3 with a 127-degree neck. This was impacted into the femoral canal without difficulty. The stem had good stability and appropriate anteversion. For the femoral head, a 28 -4 LFIT V40 femoral head was chosen as well as a 28/48/42E MDM insert. These were impacted on to the femoral neck without difficulty. The hip was reduced and taken through a range of motion. The hip was stable in all positions. The hip was copiously irrigated with sterile saline. Previously tagged capsule and tendons were reapproximated to the posterolateral femur with two trochanteric drill holes. Lateral fascial layer was closed using interrupted #1 Vicryls. The rest of the incision was closed in a layered fashion using 0 and 2-0 Vicryls. Skin was closed using running 3-0 Monocryl and Dermabond. Sterile Adaptic, 4x4's, and paper tape were used to cover the incision. The patient's anesthesia was reversed without difficulty. She was taken to PACU in stable condition. Intended weightbearing will be weightbearing as tolerated. Intended DVT prophylaxis will be Coumadin with a Lovenox bridge. [id number]/[facility] #: [id number] JOEL
[2017-01-18] MEDS: oxyCODONE TAB* 5 MG TAB PO PRN ×2 (10:12→15:59)
[2017-01-18] MEDS: Cetirizine* 10 MG TAB PO SCH (10:12)
[2017-01-18] MEDS ORDERED: Enoxaparin(*) 30 MG/0.3 ML SYR SUBCUT SCH (12:00)
[2017-01-18] MEDS ORDERED: Morphine INJ* 2 MG/ML 1 ML SYRINGE (TWO MG - NEW SYRINGE VERSION) IV PRN (15:22)
[2017-01-18] MEDS ORDERED: Warfarin TAB(*) 4 MG PO ONE (17:00)
[2017-01-18] MEDS: Atorvastatin* 40 MG TAB PO SCH (17:50)
[2017-01-18] MEDS: Gabapentin CAP(*) 300 MG PO SCH (19:45)
[2017-01-19] MEDS: oxyCODONE/Acetamin 5/325 MG* TAB PO PRN ×5 (00:20→18:43)
[2017-01-19] MEDS: Levothyroxine TAB* 75 MCG TAB PO SCH (06:14)
[2017-01-19] MEDS: busPIRone TAB* 15 MG PO SCH ×2 (08:38→21:22)
[2017-01-19] MEDS: Venlafaxine EXT RELEASE CAP* 75 MG PO SCH (08:38)
[2017-01-19] MEDS: Docusate CAP* 100 MG PO SCH ×2 (08:38→21:21)
[2017-01-19] MEDS: Cetirizine* 10 MG TAB PO SCH (08:38)
[2017-01-19] MEDS: CMCS:Solifenacin(NF) 5 MG TAB PO SCH (08:38)
[2017-01-19] MEDS: Magnesium Hydroxide LIQ* 30 ML UDC PO PRN (08:39)
[2017-01-19] MEDS: Omeprazole CAP* 20 MG PO SCH (08:41)
[2017-01-19 08:49] LABS: Hematocrit 30 % (35-47); Hemoglobin 10.2 g/dl (12.0-16.0); Mean Platelet Volume 8 um3 (7.4-10.4)
--- NOTE | 2017-01-19 10:39 | PN ---
Progress Note - Progress Note Date of Service: 01/19/17 SOAP: Subjective: Pt. is alert, pain is moderate. Reports no BM, chronic constipation. Objective: LLE - dressing changed, inc c/d/i. distally nvi. Vital Signs: Temp Pulse Resp BP Pulse Ox 98.5 F 73 17 113/49 89 01/19/17 07:46 01/19/17 07:46 01/19/17 08:39 01/19/17 07:46 01/19/17 07:46 Laboratory Results - last 24 hr 01/19/17 01/19/17 07:57 08:31 Hgb 10.2 L Hct 30 L Plt Count 188 MPV 8 INR (Anticoag Therapy) 1.65 H Assessment: 72 yo F pod 2 s/p LTHA Plan: wbat lle pt/ot lactulose today d/c to home 01/20 with vns 4 mg coumadin tonight, d/c lovenox
[2017-01-19] MEDS ORDERED: Warfarin TAB(*) 4 MG PO ONE (17:00)
[2017-01-19] MEDS: Atorvastatin* 40 MG TAB PO SCH (17:25)
[2017-01-19] MEDS: Gabapentin CAP(*) 300 MG PO SCH (21:22)
[2017-01-20] MEDS: oxyCODONE TAB* 5 MG TAB PO PRN ×2 (04:03→11:37)
[2017-01-20] MEDS: Omeprazole CAP* 20 MG PO SCH (07:14)
[2017-01-20] MEDS: Levothyroxine TAB* 75 MCG TAB PO SCH (07:14)
[2017-01-20] MEDS: oxyCODONE/Acetamin 5/325 MG* TAB PO PRN ×2 (07:21→14:06)
[2017-01-20 07:31] LABS: Hematocrit 28 % (35-47); Hemoglobin 9.7 g/dl (12.0-16.0)
[2017-01-20] MEDS: CMCS:Solifenacin(NF) 5 MG TAB PO SCH (08:21)
[2017-01-20] MEDS: Cetirizine* 10 MG TAB PO SCH (08:21)
[2017-01-20] MEDS: Docusate CAP* 100 MG PO SCH (08:21)
[2017-01-20] MEDS: busPIRone TAB* 15 MG PO SCH (08:22)
[2017-01-20] MEDS: Venlafaxine EXT RELEASE CAP* 75 MG PO SCH (08:22)
[2017-01-20] MEDS: Magnesium Hydroxide LIQ* 30 ML UDC PO PRN (11:34)
[2017-01-20] MEDS ORDERED: Sodium Phosphate ADULT ENEMA* 118 ml bottle PR PRN (11:59)
[2017-01-20 13:25] VITALS: BP 154/68
--- NOTE | 2017-01-20 13:57 | PN ---
Progress Note - Progress Note Date of Service: 01/20/17 SOAP: Subjective: [Pt is doing well. Pain controlled. Had a BM after suppository. Denies CP or SOB Objective: 72 y/o F NAD, A&O x3 LLE- inc c/d/i, dressing changed, +DF/PF ankle, calf soft NT, NVI Vital Signs Temp Pulse Resp BP Pulse Ox 98.2 F 90 18 154/68 92 01/20/17 12:27 01/20/17 12:27 01/20/17 12:27 01/20/17 12:27 01/20/17 12:27 Laboratory Results - last 24 hr 01/20/17 01/20/17 06:47 06:47 Hgb 9.7 L Hct 28 L INR (Anticoag Therapy) 2.47 H Assessment: 72 yo F pod 3 s/p LTHA Plan: wbat lle pt/ot d/c to home today with vns cont coumadin, percocet and colace: hold coumadin tonight F/U 10-14 days post op
--- NOTE | 2017-01-21 02:03 | DS ---
DISCHARGE SUMMARY: DATE OF ADMISSION: 01/17/17 DATE OF DISCHARGE: 01/20/17 PROVIDER: Dr. Barbara Mustafa * (DICTATED BY KOLBY TERRY) ADMITTING DIAGNOSIS: Status post left total hip arthroplasty for treatment of severe left hip osteoarthritis. SECONDARY DIAGNOSES: 1. Hypothyroidism. 2. Asthma. 3. Depression. 4. History of transient ischemic attack. 5. High cholesterol. CONSULTATIONS: PT/OT. HISTORY OF PRESENT ILLNESS: Ms. Gutiérrez is a 72-year-old female who presents with the complaints of ongoing left hip pain due to severe osteoarthritis. She has failed conservative measures and therefore elected to proceed with a left total hip arthroplasty with Dr. Mustafa, on 01/17/17. HOSPITAL COURSE: The patient was admitted to the [facility] on 01/17. She underwent a left total hip arthroplasty. Postoperatively, she recovered on the short stay surgical unit. On postop day 1, Cunningham was removed. She was able to urinate on her own. She advanced to a regular diet without difficulty and pain was controlled with the oral medication. She was restarted on her home medications. Her labs and vital signs remained stable. She was able to weight bear as tolerated on the left lower extremity. She advanced appropriately with physical therapy and occupational therapy. DVT prophylaxis was managed with Lovenox and Coumadin until she reached a therapeutic INR. By postop day 3, she was orthopedically and medically stable for discharge to home with VNS services. PHYSICAL EXAMINATION: General: A 72-year-old well-developed, well-nourished female, in no acute distress. Alert and oriented x3. Appropriate mood and affect. Left lower extremity, the incision is clean, dry with no evidence of infection. Sterile dressing was applied. She was able to dorsiflex and plantar flex. The calf was soft, nontender. +2 dorsalis pedis pulse. Sensation is intact to light touch distally. DISCHARGE CONDITION: Stable. DISCHARGE MEDICATIONS: Home medications continued on discharge to include: 1. Omeprazole 20 mg 1 by mouth every morning. 2. Levothyroxine 75 mcg by mouth in the morning. 3. Multivitamin 1 by mouth in the morning. 4. Fexofenadine 60 mg by mouth in the morning. 5. Albuterol 1 puff inhalation 4 times a day as needed. 6. Venlafaxine 150 mg by mouth in the morning. 7. Atorvastatin 40 mg by mouth in the evening. 8. Buspirone 22.5 mg by mouth twice a day. 9. VESIcare 5 mg by mouth in the morning. 10. Diclofenac sodium 75 mg by mouth twice a day. 11. Gabapentin 600 mg by mouth at bedtime. 12. Potassium 1 tab by mouth 3 times a day. 13. Magnesium 1 tab by mouth in the morning. New medications on discharge to include: 1. Docusate sodium 100 mg tablets by mouth 2 to 3 times a day as needed for constipation. 2. Percocet 1 to 2 tabs every 4 to 6 hours as needed for pain. 3. Coumadin 2 mg 1 to 5 tablets every evening as directed by doctor. DISCHARGE INSTRUCTIONS: The patient is weightbearing as tolerated. It is okay to shower. No bathing, swimming, or submerging the wound in water. She can use gentle soap and pat dry. Cover with gauze, Ronni wrap, or tape. She should call the orthopedic office with increased drainage, redness, increased pain, or fever. She is to go to the ER with chest pain or shortness of breath. She should eat a regular diet high in fluids and fibers to prevent constipation. She should use stool softeners and call the office if there is no bowel movement within 48 hours. She should continue posterior hip precautions, do not cross her legs or bend greater than 90 degrees. She will continue physical therapy and occupational therapy as shown. Visiting nurses to do wound checks, get INR and blood draws on Saturday and . She will continue Coumadin for DVT prophylaxis, Percocet for pain, and Colace for constipation. Coumadin dosing on 01/20/17 is hold, redraw on Saturday. The patient was instructed not to take aspirin, diclofenac, or ibuprofen while on Coumadin. She will require antibiotics prior to any dental work in the future. She will follow up with Dr. Mustafa in 10 to 14 days for a postop followup. KOLBY TERRY [id number]/[facility] #: [id number] [facility]
== END 2017-01-20 14:00 | disposition home health service (06) | DRG 470 ==
LOC: AA 08:18 → SSU 16:27
PROVIDERS: ADMIT Orthopaedic Surgery Adult Reconstructive Orthopaedic Surgery; ATTEND Orthopaedic Surgery Adult Reconstructive Orthopaedic Surgery
PROC: 0SRB0JA Replacement of Left Hip Joint with Synthetic Substitute, Uncemented, Open Approach (ICD-10-PCS; principal; 2017-01-17 11:00)
DX: M16.12 Unilateral primary osteoarthritis, left hip (principal); Z96.641 Presence of right artificial hip joint; I10 Essential (primary) hypertension; F32.9 Major depressive disorder, single episode, unspecified; E03.9 Hypothyroidism, unspecified; J45.909 Unspecified asthma, uncomplicated; Z96.653 Presence of artificial knee joint, bilateral; K21.9 Gastro-esophageal reflux disease without esophagitis; E78.5 Hyperlipidemia, unspecified; F41.9 Anxiety disorder, unspecified; M85.852 Other specified disorders of bone density and structure, left thigh; K59.00 Constipation, unspecified; Z86.73 Personal history of transient ischemic attack (TIA), and cerebral infarction without residual deficits; Z88.8 Allergy status to other drugs, medicaments and biological substances; Z82.3 Family history of stroke; Z82.49 Family history of ischemic heart disease and other diseases of the circulatory system; Z90.49 Acquired absence of other specified parts of digestive tract
CPT/HCPCS: 36415; 62327; 80048; 85014; 85018; 85049; 85610; A9270-GY; C1713; C1776; J0690; J1100; J1200; J1650; J1885; J2250; J2405; J2704; J2795; J3010

== ENCOUNTER 2018-02-09 22:16 | Inpatient (IN) | payer MEDICARE, OTHER ==
--- OUTSIDE RECORDS SUMMARY | 2018-02-09 22:33 | XMS REPORT ---
:1945 External Reference #:[id number] Author Organization [facility] Address [address] [place] [address] [place] [address] Phone [phone] Care Team Providers Name Role Phone Gary Liz MD Primary Care Physician Unavailable Payers Type Date Identification Numbers Payment Provider Subscriber Medicare Primary Effective: Policy Number: Medicare Angelina E Milks 2007 [id number] PayID: [id number] [address] [place] [address] [facility] Part B Policy Number: [id number] [employer] Angelina E Milks Group Number: [id number] [address] PayID: [id number] [place] [address] Commercial Effective: 2015 Policy Number: 90% [employer] Angelina Moore Milks Expires: 2017 PayID: [id number] [address] Problems Date Description Provider Status Onset: 07/25/2016 Localized, primary osteoarthritis Barbara Mustafa M.D. Active of the pelvic region and thigh Onset: 10/29/2016 Prosthetic arthroplasty of the Barbara Mustafa M.D. Active hip Onset: 01/24/2018 Essential hypertension Sebastián Braga M.D., Active FAC, ASHLEY Onset: 01/24/2018 Chest pain Sebastián Braga M.D., Active FACJuli, ASHLEY Onset: 12/27/2017 Iliotibial band friction syndrome Barbara Mustafa M.D. Active Onset: 12/27/2017 Arthroplasty of knee Barbara Mustafa M.D. Active Family History Date Family Member(s) Problem(s) Comments General heart General Stroke Father Heart Disease d/t at age 76 Mother Stroke Mother due to Heart Disease () Mother Heart Disease Siblings 7 2brothers one brother has heart disease. 5 sisters 2 sisiters passed to heart disease Social History Type Date Description Comments Marital Status Lives With Alone Occupation Unemployed ETOH Use Rarely consumes alcohol Smoking Patient has never smoked Recreational Drug Use Never Used Drugs Daily Caffeine Consumes on average 8oz of soda per day Exercise Type/Frequency Exercises sporadically Allergies, Adverse Reactions, Alerts Date Description Reaction Status Severity Comments 09/08/2014 Dilantin active Medications Medication Date Status Form Strength Qnty SIG Indications Ordering Provider Meloxicam 12/27/ Active Tablets 15mg 30tabs 1 by mouth M54.5 Barbara 2017 every day Hannah Mustafa Buspirone HCL / Active 15mg 1.5 Unknown 0000 tablets by mouth daily Venlafaxine HCL / Active 150mg 1 by mouth Unknown ER 0000 daily Omeprazole / Active 20mg 1 by Unknown 0000 mouth daily Levothyroxine / Active 75mcg 1 by mouth Unknown Sodium 0000 daily Atorvastatin / Active Tablets 40mg 1 by mouth Unknown Calcium 0000 every day Diclofenac / Active Tablets DR 75 take one Unknown 0000 tab by mouth daily for pain Vesicare / Active Tablets 5mg 1 by mouth Unknown 0000 every day Gabapentin / Active Capsules 300mg 1-2 Unknown 0000 tablets at daily at bedtime Sennosides-Docu / Active Tablets 8.6-50mg take 1 tab Unknown sate Sodium 0000 by mouth two times daily as needed (constipat ion). Lisinopril / Active Tablets 20mg 1 by mouth Unknown 0000 every day Tylenol Extra / Active Tablets 500mg 2 by mouth Unknown Strength 0000 3 times daily as needed Excedrin / Active Tablets 250-250-65 1 by mouth Unknown Migraine 0000 mg three times a day as needed Allergy Relief / Active Tablets 25mg 1-2 tab as Unknown 0000 needed Aspirin / Active Tablets DR 81mg 1 by mouth Unknown 0000 every day Move Free Joint / Active Tablets once daily Unknown Health Advanced 0000 Proair HFA / Active Aerosol 108(90Base 2 puffs by Unknown 0000 ) mcg/Act mouth every 4 hours as needed Percocet 01/15/ Hx Tablets 5-325mg 90tabs 1-2 by Barbara 2017 - mouth Ramsey, 12/26/ every 12 M.D. 2018 hours as needed pain Coumadin 01/11/ Hx Tablets 2mg 90tabs take 1-3 Barbara 2016 - tabs by Ramsey, 02/19/ mouth at 5 M.D. 2017 at night as directed Bactrim DS 01/08/ Hx Tablets 800-160mg 6tabs take 1 by Barbara 2016 - mouth Ramsey, 02/19/ twice a M.D. 2016 day for 3 days Percocet 08/03/ Hx Tablets 5-325mg 90tabs 1-2 by Barbara 2016 - mouth Ramsey, 09/16/ every 4-6 M.D. 2017 hours as needed pain Colace 08/03/ Hx Capsules 100mg 90caps 1 tab by Barbara 2017 - mouth 2-3 Ramsey, 12/26/ times a M.D. 2017 day as needed Knee Scooter 09/08/ Hx Left ankle 824.4 Dirk 2014 - fracture Maxine, 07/05/ M.D. 2016 Oxycodone/Aceta 03/19/ Hx Tablets 5-325mg 90tabs one to two Doug minophen 2010 - tabs q 4 Young, 10/04/ hr as M.D. 2014 needed for pain Oxybutynin / Hx 5mg Unknown Chloride 2016 Proventil HFA / Hx Unknown - 2016 Synthroid / Hx 50mcg Unknown 2016 Aspirin Adult / Hx 81mg Unknown Low Dose 2016 Diclofenac / Hx Tablets DR 75mg 1 by mouth Unknown Sodium 0000 - twice a 2016 Multi-Vitamin 00/00/ Hx daily Unknown 2017 Potassium / Hx 75mg daily Unknown 2017 Magnesium 27 / Hx Tablets 500(27Mg) 1 by mouth Unknown 0000 - mg twice 2017 Magnesium / Hx Capsules 300mg 1 by mouth Unknown 0000 - twice a 2017 Glucosamine / Hx Capsules 1500Com 1 by mouth Unknown Chondroitin 0000 - twice a 1500 Complex 2017 Vitamin D / Hx Capsules 2000Unit 1 by mouth Unknown (Ergocalciferol 0000 - every day ) 2017 Meloxicam / Hx Tablets 15mg 1 by mouth Unknown 0000 - every day 2017 Vital Signs Date Vital Result Comment 01/24/2018 Height 64 inches 5'4" Weight 217.00 lb Heart Rate 74 /min BP Systolic 130 mmHg rue reg cuff BP Diastolic 76 mmHg rue reg cuff BP Systolic Sitting 132 mmHg lue reg cuff BP Diastolic Sitting 76 mmHg lue reg cuff BP Systolic Standing 134 mmHg lue reg cuff BP Diastolic Standing 78 mmHg lue reg cuff BMI (Body Mass Index) 37.2 kg/m2 12/27/2017 Height 64 inches 5'4" Weight 215.00 lb BP Systolic 136 mmHg BP Diastolic 80 mmHg Body Temperature 97.8 F BMI (Body Mass Index) 36.9 kg/m2 07/03/2017 Height 64 inches 5'4" Heart Rate 67 /min BP Systolic 132 mmHg BP Diastolic 76 mmHg Respiratory Rate 18 /min Body Temperature 97.7 F Pain Level 0 04/03/2017 Height 64 inches 5'4" Weight 209.00 lb BP Systolic 134 mmHg BP Diastolic 80 mmHg Body Temperature 97.9 F Pain Level 10 BMI (Body Mass Index) 35.9 kg/m2 02/20/2017 Height 64 inches 5'4" Weight 220.00 lb Heart Rate 91 /min BP Systolic 145 mmHg BP Diastolic 80 mmHg Pain Level 2 BMI (Body Mass Index) 37.8 kg/m2 01/30/2017 Height 64 inches 5'4" Weight 220.00 lb Heart Rate 85 /min BP Systolic 158 mmHg BP Diastolic 73 mmHg Body Temperature 97.4 F BMI (Body Mass Index) 37.8 kg/m2 01/11/2017 Height 64 inches 5'4" Weight 211.00 lb BP Systolic 130 mmHg BP Diastolic 84 mmHg Respiratory Rate 18 /min Body Temperature 97.8 F Pain Level 4 BMI (Body Mass Index) 36.2 kg/m2 12/12/2016 Height 64 inches 5'4" Weight 211.00 lb Heart Rate 76 /min BP Systolic 154 mmHg BP Diastolic 76 mmHg BMI (Body Mass Index) 36.2 kg/m2 10/29/2016 Height 64 inches 5'4" Weight 215.00 lb Heart Rate 86 /min BP Systolic 114 mmHg BP Diastolic 86 mmHg Body Temperature 97.0 F Pain Level 5 BMI (Body Mass Index) 36.9 kg/m2 09/17/2016 Height 64 inches 5'4" Weight 215.00 lb Heart Rate 85 /min BP Systolic 127 mmHg BP Diastolic 81 mmHg BMI (Body Mass Index) 36.9 kg/m2 08/20/2016 Height 64 inches 5'4" Weight 218.00 lb Heart Rate 69 /min BP Systolic 145 mmHg BP Diastolic 70 mmHg Body Temperature 97.6 F Pain Level 4 BMI (Body Mass Index) 37.4 kg/m2 08/03/2016 Height 64 inches 5'4" Weight 218.00 lb Heart Rate 81 /min BP Systolic 138 mmHg BP Diastolic 91 mmHg Respiratory Rate 20 /min Body Temperature 97.7 F Pain Level 8 BMI (Body Mass Index) 37.4 kg/m2 07/25/2016 Height 64 inches 5'4" Weight 220.00 lb Heart Rate 82 /min BP Systolic 130 mmHg BP Diastolic 70 mmHg Respiratory Rate 18 /min Body Temperature 97.2 F Pain Level 10 BMI (Body Mass Index) 37.8 kg/m2 07/13/2015 Height 63 inches 5'3" Weight 220.00 lb Pain Level 8 BMI (Body Mass Index) 39.0 kg/m2 02/07/2015 Height 63 inches 5'3" Weight 220.00 lb Pain Level 0 BMI (Body Mass Index) 39.0 kg/m2 01/03/2015 Height 63 inches 5'3" Weight 220.00 lb Pain Level 5 BMI (Body Mass Index) 39.0 kg/m2 12/27/2014 Height 63 inches 5'3" Weight 220.00 lb Heart Rate 75 /min BP Systolic 144 mmHg BP Diastolic 87 mmHg BMI (Body Mass Index) 39.0 kg/m2 11/01/2014 Height 64 inches 5'4" Weight 220.00 lb Pain Level 1 BMI (Body Mass Index) 37.8 kg/m2 10/11/2014 Height 64 inches 5'4" Weight 220.00 lb Pain Level 0 BMI (Body Mass Index) 37.8 kg/m2 09/13/2014 Height 64 inches 5'4" Weight 220.00 lb Pain Level 1 BMI (Body Mass Index) 37.8 kg/m2 09/08/2014 Height 64 inches 5'4" Weight 220.00 lb Heart Rate 83 /min BP Systolic 162 mmHg BP Diastolic 89 mmHg Pain Level 3 BMI (Body Mass Index) 37.8 kg/m2 Results Test Date Test Result H/L Range Note Urine Culture And 01/04/2017 Urine Culture SEE RESULT BELOW 1 Sensitivities Inr/Protime 01/04/2017 Inr 0.89 0.89-1.11 Laboratory test finding 01/04/2017 Partial Thrombo 29.0 seconds 26.0- 36.3 Time PTT Comp Metabolic Panel 01/04/2017 Sodium 139 mmol/L 133-145 Potassium 4.6 mmol/L 3.5-5.0 Chloride 101 mmol/L 101-111 Co2 Carbon Dioxide 32 mmol/L 22-32 Anion Gap 6 mmol/L 2-11 Glucose 86 mg/dL 70-100 Blood Urea Nitrogen 15 mg/dL 6-24 Creatinine 0.66 mg/dL 0.51-0.95 BUN/Creatinine Ratio 22.7 High 8-20 Calcium 10.0 mg/dL 8.6-10.3 Total Protein 6.9 g/dL 6.4-8.9 Albumin 4.4 g/dL 3.2-5.2 Globulin 2.5 g/dL 2-4 Albumin/Globulin Ratio 1.8 1-3 Total Bilirubin 0.60 mg/dL 0.2-1.0 Alkaline Phosphatase 136 U/L High 34-104 Alt 31 U/L 7-52 Ast 26 U/L 13-39 Egfr Non- 88.0 >60 Egfr 113.2 >60 2 CBC No Diff 01/04/2017 White Blood Count 8.6 10^3/uL 3.5-10.8 Red Blood Count 4.81 10^6/uL 4.0-5.4 Hemoglobin 14.1 g/dL 12.0-16.0 Hematocrit 41 % 35-47 Mean Corpuscular Volume 86 fL 80-97 Mean Corpuscular Hemoglobin 29 pg 27-31 Mean Corpuscular HGB Conc 34 g/dL 31-36 Red Cell Distribution Width 14 % 10.5-15 Platelet Count 241 10^3/uL 150-450 Mean Platelet Volume 8 um3 7.4-10.4 Type & Screen 01/04/2017 Patient Blood Type O Positive Antibody Screen NEGATIVE Urinalysis Profile 01/04/2017 Urine Color Yellow Urine Appearance Cloudy Urine Specific [place] 1.017 1.010-1.030 Urine pH 6.0 5-9 Urine Urobilinogen Negative Negative Urine Ketones Negative Negative Urine Protein Negative Negative Urine Leukocytes Trace Negative Urine Blood Negative Negative Urine Nitrite Negative Negative Urine Bilirubin Negative Negative Urine Glucose Negative Negative Urine White Blood Cell Trace(0-5/hpf) Absent Urine Red Blood Cell 1+(3-5/hpf) Absent Urine Bacteria Absent Absent Urine Squamous Epithelial Cell Present Absent Inr/Protime 09/03/2016 Inr 1.94 High 0.89-1.11 3 Inr/Protime 08/30/2016 Inr 1.86 High 0.89-1.11 Inr/Protime 08/27/2016 Inr 1.71 High 0.89-1.11 Laboratory test finding 08/03/2016 Partial Thrombo 29.0 seconds 26.0- 36.3 4, 5 Time PTT CBC No Diff 08/03/2016 White Blood Count 7.8 10^3/uL 3.5-10.8 4 Red Blood Count 4.79 10^6/uL 4.0-5.4 4 Hemoglobin 14.4 g/dL 12.0-16.0 4 Hematocrit 43 % 35-47 4 Mean Corpuscular Volume 89 fL 80-97 4 Mean Corpuscular Hemoglobin 30 pg 27-31 4 Mean Corpuscular HGB Conc 34 g/dL 31-36 4 Red Cell Distribution Width 13 % 10.5-15 4 Platelet Count 249 10^3/uL 150-450 4 Mean Platelet Volume 9 um3 7.4-10.4 4 Urinalysis Profile 08/03/2016 Urine Color Yellow 4 Urine Appearance Cloudy 4 Urine Specific [place] 1.012 1.010-1.030 4 Urine pH 7.0 5-9 4 Urine Urobilinogen Negative Negative 4 Urine Ketones Negative Negative 4 Urine Protein Negative Negative 4 Urine Leukocytes Trace Negative 4 Urine Blood Negative Negative 4 Urine Nitrite Negative Negative 4 Urine Bilirubin Negative Negative 4 Urine Glucose Negative Negative 4 Urine White Blood Cell Trace(0-5/hpf) Absent 4 Urine Red Blood Cell Trace(0-2/hpf) Absent 4 Urine Bacteria Absent Absent 4 Urine Squamous Epithelial Cell Present Absent 4 Inr/Protime 08/03/2016 Inr 0.90 0.89-1.11 4 Urine Culture And 08/03/2016 Urine Culture SEE RESULT BELOW 4, 6 Sensitivities Type & Screen 08/03/2016 Patient Blood O Positive 4 Type Antibody Screen NEGATIVE 4 Laboratory test 07/19/2016 TSH (Thyroid Stim Horm) 2.88 mcIU/mL 0.34- 5.60 7, 8 finding Lipid Profile 07/19/2016 Triglycerides 135 mg/dL 7, 9 (Trig/Chol/HDL) Cholesterol 231 mg/dL 7, 10 HDL Cholesterol 59.1 mg/dL 7, 11 LDL Cholesterol 145 mg/dL 7, 12 Comp Metabolic Panel 07/19/2016 Sodium 140 mmol/L 133-145 7 Potassium 4.5 mmol/L 3.5-5.0 7 Chloride 104 mmol/L 101-111 7 Co2 Carbon Dioxide 28 mmol/L 22-32 7 Anion Gap 8 mmol/L 2-11 7 Glucose 96 mg/dL 70-100 7 Blood Urea Nitrogen 14 mg/dL 6-24 7 Creatinine 0.75 mg/dL 0.51-0.95 7 BUN/Creatinine Ratio 18.7 8-20 7 Calcium 9.4 mg/dL 8.6-10.3 7 Total Protein 6.7 g/dL 6.4-8.9 7 Albumin 4.5 g/dL 3.2-5.2 7 Globulin 2.2 g/dL 2-4 7 Albumin/Globulin Ratio 2.0 1-3 7 Total Bilirubin 0.60 mg/dL 0.2-1.0 7 Alkaline Phosphatase 131 U/L High 34-104 7 Alt 63 U/L High 7-52 7 Ast 38 U/L 13-39 7 Egfr Non- 76.0 >60 7 Egfr 97.7 >60 7, 13 1 SEE RESULT BELOW Name: ANGELINA GUTIÉRREZ DOB: [address]: Barbara Mustafa MD Acct: [id number] Unit: [id number] AGE: 72 Location: PAT Re01/04/17 SEX: F Status: REG REF SPEC: [id number] GABRIEL: 01/04/17-[address] [facility] [address]: Barbara Mustafa MD REQ: [id number] RECD: 01/04/17 STATUS: CHIKIS JACKMAN DR: Gary Liz MD _ SOURCE: URINE SPDESC: ORDERED: Urine Culture Procedure Result Reported Site Urine Culture Final 01/07/17- 0751 ML Organism 1 ESCHERICHIA COLI [place] Count 10-25,000 (Moderate) CFU/ML 1. ESCHERICHIA COLI M.I.C. RX --------- ------ Ampicillin <=2 S Cefazolin <=4 S Cefepime <=1 S Ceftriaxone <=1 S Ciprofloxacin <=0.25 S Gentamicin <=1 S Levofloxacin <=0.12 S Meropenem <=0.25 S Nitrofurantoin <=16 S Tetracycline <=1 S Pipercillin/Tazobactam <=4 S Trimethoprim/Sulfamethoxazole <=20 S Amoxicillin/Clavulanic Acid <=2 S Aztreonam <=1 S Contact the Microbiology Department for any additional antibiotic reporting. * ML - MAIN LAB ([facility]) . END OF REPORT * ML=Testing performed at Main Lab DEPARTMENT OF PATHOLOGY, [address] [place] [address] Josafat Sweeney M.D. Director [facility] # [id number] 2 Because ethnic data is not always readily available, this report includes an eGFR for both -Americans and non- Americans. The National Kidney Disease Education Program (NKDEP) does not endorse the use of the MDRD equation for patients that are not between the ages of 18 and 70, are , have extremes of body size, muscle mass, or nutritional status, or are non- or non-. According to the National Kidney Foundation, irrespective of diagnosis, the stage of the disease is based on the level of kidney function: Stage Description GFR(mL/min/1.73 m(2)) 1 Kidney damage with normal or decreased GFR 90 2 Kidney damage with mild decrease in GFR 60-89 3 Moderate decrease in GFR 30-59 4 Severe decrease in GFR 15-29 5 Kidney failure <15 (or dialysis) 3 CALL RESULTS STAT [phone] SD [id number] 5 SD [id number] 6 SEE RESULT BELOW Name: ANGELINA GUTIÉRREZ : [address]: Barbara Mustafa MD Acct: [id number] Unit: [id number] AGE: 71 Location: [facility] Re08/03/16 SEX: F Status: REG REF SPEC: [id number] GABRIEL: 08/03/16-[address]: Barbara Mustafa MD REQ: [id number] RECD: 08/03/16 STATUS: COMP _ SOURCE: URINE SPDESC: ORDERED: Urine Culture COMMENTS: FRANNY [id number] QUERIES: Urine Source: Clean Catch Procedure Result Reported Site Urine Culture Final 08/04/16- 1211 ML No Growth (<1,000 CFU/mL) * ML - MAIN LAB ([facility]) . END OF REPORT * ML=Testing performed at Main Lab DEPARTMENT OF PATHOLOGY, [address] [place] [address] Josafat Sweeney M.D. Director [facility] # [id number] 7 FASTING 8 FASTING 9 Desirable <150 Borderline high 150-199 High 200-499 Very High >500 10 Desirable <200 Borderline high 200-239 High >239 11 Low <40 Desirable: 40-60 High: >60 12 Desirable: <100 mg/dL Near Optimal: 100-129 mg/dL Borderline High: 130-159 mg/dL High: 160-189 mg/dL Very High: >189 mg/dL 13 Because ethnic data is not always readily available, this report includes an eGFR for both -Americans and non- Americans. The National Kidney Disease Education Program (NKDEP) does not endorse the use of the MDRD equation for patients that are not between the ages of 18 and 70, are , have extremes of body size, muscle mass, or nutritional status, or are non- or non-. According to the National Kidney Foundation, irrespective of diagnosis, the stage of the disease is based on the level of kidney function: Stage Description GFR(mL/min/1.73 m(2)) 1 Kidney damage with normal or decreased GFR 90 2 Kidney damage with mild decrease in GFR 60-89 3 Moderate decrease in GFR 30-59 4 Severe decrease in GFR 15-29 5 Kidney failure <15 (or dialysis) Procedures Date CPT Code Description Status 01/24/2018 91856 EKG Tracing & Interpretation Completed 04/25/2017 47394 Treadmill Interp/Report Only Completed 04/25/2017 34080 Stress Test Supervsn W/Out I/R Completed 01/17/2017 47030 THR Total Hip Replacement Completed 01/17/2017 84516 THR Total Hip Replacement Completed 08/10/201644657 THR Total Hip Replacement Completed 08/10/2016 51766 THR Total Hip Replacement Completed 09/15/2015 68851 EEG Recording Awake & Drowsy Completed 09/13/2014 22740 Walking Cast Completed 09/08/2014 01528 Closed TX Bimalleolar FX W/O Manip Completed 05/08/2011 74933 Rad Exam; Elbow, Limited Completed 05/08/2011 14244 Rad Shoulder Comp, Min. 2 Views Completed 04/03/2011 14057 Rad Shoulder Comp, Min. 2 Views Completed 03/19/2011 61839 Closed trtmt prox humeral fx Completed Encounters Type Date Location Provider CPT E/M Dx Office Visit 12/27/2017 [facility] Barbara Mustafa M.D. 62200 Z96.642 11:15a Of Alan M54.5 Z96.641 Z96.651 Z96.652 M76.32 M25.552 M25.562 Office Visit 07/03/2017 11:00a [facility] Barbara Mustafa M.D. 66789 Z47.1 C.M.A. Z96.642 Z96.641 M25.551 Office Visit 12/12/2016 8:15a [facility] Barbara Mustafa M.D. 08468 Z96.641 C.M.A. M25.552 M16.12 Office Visit 08/13/2016 2:26p [facility] Jeevan Leung, 61538 Z96.641 Assoc,[facility] Hospitalists Z87.820 I10 E78.5 Office Visit 08/12/2016 2:26p [facility] Jeevan Leung, 48267 Z96.641 [facility], [place] Hospitalists Z87.820 I10 E78.5 Office Visit 08/11/2016 2:25p [facility] Jeevan Leung, 24133 Z96.641 Assoc,[facility] Hospitalists Z87.820 I10 E78.5 Office Visit 08/10/2016 2:24p [facility] Jeevan Leung, 03707 Z96.641 Assoc,[facility] Hospitalists Z87.820 I10 E78.5 Office Visit 07/25/2016 9:30a [facility] Barbara Mustafa M.D. 65225 M25.551 C.M.A. M16.11 Office Visit 10/12/2015 10:10a [facility] Chandrika Hinojosajulian, CONTINUOUS WASHER OPERATOR 14336 R10.30 Assoc, Hospitalists E03.9 R51 I10 Office Visit 10/11/2015 10:09a [facility] Yuniel Brito, 72029 R10.30 Assoc, Hospitalists N.P. E03.9 R51 I10 Office Visit 09/16/2015 12:43p [facility] Aimee Gray, 71352 R41.82 Assoc, Hospitalists Hannah E78.0 E03.9 Office Visit 09/15/2015 12:42p [facility] Assoc,pc Dagoberto Arturo, 39928 R41.82 Hospitalists Hannah E78.0 E03.9 Office Visit 09/15/2015 4:02p [facility] Raul Brown, 77134 R47.01 Hannah G43.109 R94.01 Office Visit 09/14/2015 4:01p [facility] [place] 00341 G45.9 Hannah Brown Office Visit 09/14/2015 12:41p [facility] Assoc, Jacklyn 03947 R41.82 Hospitalists Halley oneil, CONTINUOUS WASHER OPERATOR E78.0 E03.9 Office Visit 07/13/2015 1:15p [facility] Goodman M.D. 39275 M16.11 C.M.A. M54.41 Office Visit 02/07/2015 2:30p [facility] M.D. 15428 M16.11 C.M.A. Office Visit 01/03/2015 10:45a [facility] M.D. 21990 715.95 C.M.A. 724.2 Office Visit 12/27/2014 10:30a [facility] M.D. 98106 724.2 C.M.A. 715.15 719.15 Office Visit 12/05/2009 2:30p [facility] M.D. 00375 715.96 C.M.A. Plan of Care Future Appointment(s):03/05/2018 11:30 am - Sebastián Braga M.D., ASHLEY SANTILLAN at [facility]02/03/2018 11:00 am - Traveling ECHO 2 at [facility]01/27/2018 10:15 am - Sebastián Braga M.D., ASHLEY SANTILLAN at [facility]03/31/2018 11:15 am - Barbara Mustafa M.D. at [facility]01/24/2018 - Sebastián Braga M.D., TYRELL, ZZWRJA49.9 Chest pain, unspecifiedNew Orders:Stress Test, Pharmacologic Nuclear (Lexiscan) EchocardiogramComments:As discussed, we will further evaluate your heart. Please call [phone] if chest pain comes back.Follow up:after cardiac testing.I10 Essential (primary) hypertension
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
--- OUTSIDE RECORDS SUMMARY | 2018-02-09 22:34 | XMS REPORT | Continuity of Care Document ---
:1945 External Reference #:[id number] Author Name Sushila Blount NP Address [address] [place] [address] Care Team Providers Name Role Phone Gary Liz MD Care Team Information Medical Voucher Clerk Unavailable Payers Type Date Identification Numbers Payment Provider Subscriber Effective: Policy Number: [id number] Medicare - Bswny Umd Angelina Porters 2007 PayID: [id number] [address] [place] [address] Effective: 1993 Policy Number: [id number] [employer] Angelina Porters Group Name: [employer] [address] PayID: [id number] [place] [address] Advance Directives Description No Information Available Problems [...] Retired Worked different places, waiting tables, selling [employer], 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 Allergies, Adverse Reactions, Alerts Date Description Reaction Status Severity Comments 09/19/2016 Dilantin Active Severe Medications Medication Date Status Form Strength Qnty SIG Indications Ordering Provider Blood Pressure 01/13/ Active Device 1unit use as Sushila Kit/Manualinfla 2017 s directed Jose Alejandro, JUAN FRANCISCO te Lisinopril 01/13/ Active Tablets 20mg 30tab 1 tablet by Sushila 2017 s mouth once Jose Alejandro, GROUP UNDERWRITER daily Aspirin 12/30/ Active Chewtabs 81mg 30uni 1 tablet by Sushila 2017 ts mouth once Jose Alejandro, GROUP UNDERWRITER daily Polyethylene 12/30/ Active Powder 3350NF QS [...] Sodium 0000 DR s everyday with JUAN FRANCISOC Blount food as needed back pain Venlafaxine HCL / Active Caps ER 150mg 90cap 1 by mouth Ines ER 0000 24HR s every day JUAN FRANCISCO Bowling Buspirone HCL / Active Tablets 15mg 270ta take 1.5 Mauro 0000 bs tablet by Jose Luis mouth twice a III, day SOCK LINING EXAMINER-C Multi For Her / Active Tablets daily [...] 0000 ps Capsules By Cheri Bowling Every GROUP UNDERWRITER Night AT Bedtime Lisinopril 12/30/ Hx Tablets [...] CPT Code Status Date Vaccine Lot # [id number] Given 01/13/2018 Influenza Vaccine High Dose PF [id number] Given 05/06/2016 Influenza Virus Vaccine, 3 Yrs [...] Result H/L Range Note Laboratory test 01/13/2018 [facility] Free T4 < pending> finding [phone] (Free Thyroxine) Laboratory test 01/13/2018 [facility] TSH <pending> finding [phone] (Thyroid Stim Horm) Laboratory test 06/18/2017 [facility] TSH 5.40 mcIU/ mL 0.34-5.60 1 finding [phone] (Thyroid Stim Horm) Free T4 (Free Thyroxine) 0.79 ng/dL 0.61-1.12 2 Statin 06/18/2017 [facility] Ast (Sgot) 23 U/L 13- 39 3 [phone] Alt 23 U/L 7-52 4 Lipid Profile 06/18/2017 [facility] Triglycerides 171 mg/dL 5 (Trig/Chol/HDL) [phone] Cholesterol 251 mg/dL 6 HDL Cholesterol 68.9 mg/dL 7 LDL Cholesterol 148 mg/dL 8 CBC Auto Diff 06/18/2017 [facility] White Blood 6.3 10^3/uL 3.5-10.8 [phone] Count Red Blood Count 5.08 10^6/uL 4.0-5.4 [...] Blood Cells % 0.3 Laboratory test 01/04/2017 [facility] Urine Culture And SEE RESULT 9 finding [phone] Sensitivities BELOW Urinalysis 01/04/2017 [facility] Urine Color Yellow Profile [phone] Urine Appearance Cloudy Urine Specific [place] 1.017 1.010-1.030 Urine pH 6.0 5-9 Urine [...] Cell Present Absent Type & Screen 01/04/2017 [facility] Patient Blood O Positive [phone] Type Antibody Screen NEGATIVE CBC No Diff 01/04/2017 [facility] White Blood 8.6 10^ 3/uL 3.5-10.8 [phone] Count Red Blood Count 4.81 10^6/uL 4.0-5.4 Hemoglobin 14.1 g/dL 12.0-16.0 Hematocrit 41 % 35-47 Mean Corpuscular Volume 86 fL 80-97 Mean Corpuscular Hemoglobin 29 pg 27-31 Mean Corpuscular HGB Conc 34 g/dL 31-36 Red Cell Distribution Width 14 % 10.5-15 Platelet Count 241 10^3/uL 150-450 Mean Platelet Volume 8 um3 7.4-10.4 Comp Metabolic Panel 01/04/2017 [facility] Sodium 139 mmol/L 133-145 [phone] Potassium 4.6 mmol/L 3.5-5.0 Chloride 101 mmol/L [...] Egfr 113.2 >60 10 Laboratory test 01/04/2017 [facility] Inr/Protime 0.89 0.89-1.11 finding [phone] Partial Thrombo Time PTT 29.0 seconds 26.0-36.3 [...] [address]: Barbara Mustafa MD Acct: [id number] Unit: [id number] AGE: 72 Location: [facility] Re01/04/17 SEX: F Status: REG REF SPEC: [id number] GABRIEL: 01/04/17-[address]: Barbara Mustafa MD REQ: [id number] RECD: 01/04/176 STATUS: COMP MALU DR: Gary Liz MD _ SOURCE: URINE SPDESC: ORDERED: Urine Culture Procedure Result Reported Site Urine Culture Final 01/07/17- 0751 ML Organism 1 ESCHERICHIA COLI [place] Count 10-25,000 (Moderate) CFU/ML 1. ESCHERICHIA COLI [...] antibiotic reporting. * ML - MAIN LAB ([facility]) . END OF REPORT * ML=Testing performed at Main Lab DEPARTMENT OF PATHOLOGY, [address] [place] [address] Josafat Sweeney M.D. Director [facility] # [id number] 10 Because ethnic data is not always [...] (or dialysis) Procedures Date Code Description Status 01/13/2018 27564 Remove Impact Cerumen Irrigati Completed 12/30/2017 10974 EKG, at Least 12 Leads w/Interpretation and Report Completed 03/22/2017 75021 EKG, at Least 12 Leads w/Interpretation and Report Completed 09/19/2016 95936 Remove Impact Cerumen Irrigati Completed 04/11/2016 [id number] Mammogram Completed 02/19/2013 [id number] Colonoscopy Completed Encounters Type Date Location Provider [...] that use suction to pull the wax out.M54.9 Dorsalgia, unspecifiedNew Orders:Physical Therapy, Ordered: 01/13/18Comments:Plan refer to PT.Patient is taking Meloxicam and Diclofenac daily for arthritis in knees/hips/back. Discussed use of only 1 NSAID and not to be used daily, but as needed. Patient states understanding and agrees with plan.Recommendations:Almost everyone gets back pain at some point. Low back pain can be scary. But it is almost never serious. It usually goes away on its own. The cases that require urgent care or surgery are rare. See your doctor if you have back pain and you: -Recently had a fall or an injury to your back -Have numbness or weakness in your legs -Have problems with bladder or bowel control -Have unexplained weight loss -Have a fever or feel sick in other ways -Take steroid medicine, such as prednisone, on a regular basis -Have diabetes or a medical problem that weakens your immune system -Have a history of cancer orosteoporosis You should also see a doctor if : -Your back pain is so severe that you cannot perform simple tasks -Your back pain does not start to improve within 3 to 4 weeks In most cases, doctors do not know what causes low back pain. Pain can happen if you strain a muscle or hurt a tendon or ligament. But if that is the cause of your pain, doctors have no way of knowing it for sure. Pain can also happen if you have: -Damaged, bulging, or torn discs -Arthritis affecting the joints of the spine -Bony growths on the vertebrae that crowd nearby nerves -A vertebra out of place - Narrowing in the spinal canal -A tumor or infection (but this is very rare) Most people do not need an imaging test. Most cases of back pain go away within 4 to 6 weeks - or in even less time. Doctors usually do not order imaging tests before then unless there are signs of something unusual. If your doctor does not order an imaging test, do not worry. He or she can still learn a lot about your pain just from looking you over and talking with you. Plus, treatment can start right away, even without an imaging test. Your symptoms tell your doctor a lot about the cause of your pain. If your pain spreads down the back of one thigh, for instance, that could be a sign that one of the nerves that go to your leg is being pinched by a bulging or torn disc. If, on the other hand, your pain goes all the way down both legs, thatcould be a sign that you have bony growths on your spine. The best thing you can do is to stay as active as possible - even if you are in pain. People with low back pain recover faster if they stay active. Walk as much as you can. If you stopped working because of your pain, try to get back to your normal routine soon. But do not overdo it. When you start to feel better, ask your doctor about exercises that can help strengthen your back. These exercises can help you get better faster and might makeit less likely that you will have pain again. -Medicines - First, you can try pain medicines that you can get without a prescription. In many cases, doctors suggest trying an NSAID, such as ibuprofen (sample brand names: Advil, Motrin) or naproxen(sample brand name: Aleve) first. These work better than acetaminophen (Tylenol) for back pain. If non-prescription medicines do not help, your health care provider can prescribe stronger pain medicines. Sometimes , doctors suggest a medicine to relax the muscles (called a "muscle relaxant"). But keep in mind that muscle relaxants are not generally used in people older than 65. In older people, these medicines can cause side effects such as trouble urinating or confusion. -Physical therapy to teach you special exercises and stretches -Spinal manipulation - This is when someone like a physical therapist or a chiropractor moves or "adjusts" the joints of your back -Acupuncture - This is when someone who knows traditional [place] medicine inserts tiny needles into your body to block pain signals -Massage -Reducing stress - Some people feel better if they try something called "mindfulness- based stress reduction." This involves going to a group program to practice relaxation, meditation, and yoga. -Injections of medicines that numb the back or reduce swelling Stay active and learn exercises that help strengthen and stretch your back. Learn to lift using your legs instead of your back. And avoid sitting or standing in the same position for too long.
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
[2018-02-09 23:37] LABS: ABS Basophils 0 10^3/ul (0-0.2); ABS Eosinophils 0.3 10^3/ul (0-0.6); ABS Lymphocytes 1.8 10^3/ul (1.0-4.8); ABS Monocytes 0.7 10^3/ul (0-0.8); ABS Neutrophils 6.1 10^3/ul (1.5-7.7); ABS Nucleated RBC 0 10^3/ul; Eosinophil % 3.4 % (0-6); Hematocrit 40 % (35-47); Hemoglobin 13.6 g/dl (12.0-16.0); Lymphocyte % 20.4 % (25-47); Mean Corpuscular HGB Conc 34 g/dl (31-36); Mean Corpuscular Hemoglobin 30 pg (27-31); Mean Corpuscular Volume 88 fL (80-97); Mean Platelet Volume 8.1 um3 (7.4-10.4); Nucleated Red Blood Cells % 0.1; Platelet Count 225 10^3/ul (150-450); Red Blood Count 4.59 10^6/ul (4.00-5.40); Red Cell Distribution Width 13 % (10.5-15)
[2018-02-09 23:53] LABS: INR 0.86 (0.77-1.02)
[2018-02-09 23:54] LABS: EGFR Non-African American 73.3 (>60)
[2018-02-10] MEDS ORDERED: Clopidogrel TAB* 300 MG PO ONE (00:05)
[2018-02-10] MEDS ORDERED: Enoxaparin(*) 100 MG/ML SYR SUBCUT ONE (00:05)
[2018-02-10] MEDS ORDERED: Metoprolol Tartrate IV* 1 MG/ML 5 ML VIAL IV ONE ×2 (00:05→01:51)
[2018-02-10] MEDS ORDERED: Aspirin 81 mg CHEW TAB* 81 MG TAB.CHEW PO ONE (00:06)
[2018-02-10] MEDS ORDERED: Iohexol 350* (CONTRAST) 500 ML MDV IV ONE (00:15)
[2018-02-10] MEDS ORDERED: Morphine INJ* 4 MG/ML 1 ML SYRINGE (NEW SYRINGE VERSION) IV ONE (01:36)
[2018-02-10] MEDS ORDERED: Ondansetron INJ* 2 MG/ML VIAL IV ONE (01:36)
--- NOTE | 2018-02-10 01:42 | RAD ---
EXAM: CT Angiography Chest With Intravenous Contrast CLINICAL HISTORY: 73 years old, female; Signs and symptoms; Angina; Patient HX: Right sided chest pain x 2 weeks; Additional info: Pe TECHNIQUE: Axial computed tomographic angiography images of the chest with intravenous contrast using pulmonary embolism protocol. All CT scans at this facility use at least one of these dose optimization techniques: automated exposure control; mA and/or kV adjustment per patient size (includes targeted exams where dose is matched to clinical indication); or iterative reconstruction. MIP reconstructed images were created and reviewed. Coronal and sagittal reformatted images were created and reviewed. CONTRAST: 81 mL of OMNIPAQUE 350 administered intravenously. COMPARISON: OT CXR PA CHEST 1 VW 08/03/2016 3:05 PM FINDINGS: Pulmonary arteries: Pulmonary arteries are well opacified to the subsegmental branches. Normal caliber main pulmonary artery. No filling defects throughout the pulmonary artery tree. Aorta: The aorta demonstrates mild atherosclerotic calcification. Lungs: Elevated left hemidiaphragm with mild compressive atelectasis left lung base. No pulmonary nodules, masses, or consolidations. No bronchiectasis, peribronchial thickening, or luminal defects. Pleural space: Normal. No significant effusion. No pneumothorax. Heart: Normal. No cardiomegaly. No significant pericardial effusion. No evidence of RV dysfunction. Thyroid: No thyroid nodules. Bones/joints: The thoracic spine demonstrates mild degenerative changes at multiple levels. No fractures. No suspicious bone lesions. No dislocation. Soft tissues: Normal. Lymph nodes: Normal. No enlarged lymph nodes. IMPRESSION: No pulmonary emboli. No additional findings to correlate with patient's symptomatology. To contact [facility] with a general question: [facility] - [phone] For direct physician to physician contact: Physician Hotline - [phone] [facility] ([facility] Facility ID #[id number])
[2018-02-10] MEDS ORDERED: Ondansetron INJ* 2 MG/ML VIAL ONE (02:08)
[2018-02-10] MEDS ORDERED: LORazepam INJ* 2 MG/ML 1 ML VIAL IV PUSH ONE (03:21)
[2018-02-10] MEDS ORDERED: Nitroglycerin 2% OINT* 1 GM PAK ONE (03:22)
[2018-02-10] MEDS ORDERED: LORazepam INJ* 2 MG/ML 1 ML VIAL ONE (03:24)
[2018-02-10] MEDS: Nitroglycerin 2% OINT* 1 GM PAK TOPICAL SCH ×4 (03:29→12:32)
--- NOTE | 2018-02-10 03:51 | ADMNOTE ---
Subjective Date of Service: 02/10/18 Interval History: hpi this is a 73 yr old wm with only family hx of mi ( both parents and siblings after age of 60 ) presented to er with chest pain. pt was playing puzzles with brother in law at that time and was taken to er by him duration for 20 min. pt described pain as constant steady pain unable to described what type radiating to her head intensity 5/10 with no other associated symptoms. intiial trop is 0.2 but no acute ekg changes at 2300 but the second one done at 2 am trended up to 0.36 with new flippered seen on anterior lateral leads ---> pt got asa 162 + plavix 300 + theraputic dose of lovenox from er ---> when pt was seen by this blurb writer her pain went down from 5/10 to 3/10 ---> pt was given ativan 0.5 mg ivp times nitro paste 0.5 patch and later fell asleep will call cardio in am reg this Family History: Findings - cad + both parents mulitple siblings but all dxd after 60 both parents + mi after 80 htn Social History: Findings - no cig occa etoh one glass of wine no ivda walks with a ricki at times Past Medical History: Findings - family hx of cad morbid obesity htn increased lipid pshx b/l hip orif b/l knee orif s/p chol Review of Systems - Measurements Intake and Output: Intake and Output Last 24 Hours 02/07/18 02/08/18 02/09/18 02/10/18 06:59 06:59 06:59 06:59 Weight 217 lb - Review of Systems General Comments: the 12 ros went over with her please refer hpi for details Objective Active Medications: Aspirin (Ecotrin Ec Tab*) 325 mg PO DAILY JAMES Clopidogrel Bisulfate (Plavix Tab*) 75 mg PO DAILY JAMES Nitroglycerin (Nitroglycerin 2% Oint*) 0.5 inch TOPICAL 0600,1200 JAMES; Protocol Last Admin: 02/10/18 03:29 Dose: 0.5 inch Vital Signs - 8 hr 02/09/18 02/09/18 02/09/18 22:18 22:36 23:00 Temperature 98.2 F Pulse Rate 94 82 77 Respiratory 16 22 16 Rate Blood Pressure 153/88 145/82 (mmHg) O2 Sat by Pulse 96 94 94 Oximetry 02/09/18 02/09/18 02/10/18 23:06 23:36 00:00 Temperature Pulse Rate 77 80 81 Respiratory 17 26 25 Rate Blood Pressure 156/84 150/73 (mmHg) O2 Sat by Pulse 93 93 93 Oximetry 02/10/18 02/10/18 02/10/18 00:05 00:06 01:01 Temperature Pulse Rate 78 77 85 Respiratory 23 20 19 Rate Blood Pressure 139/81 (mmHg) O2 Sat by Pulse 92 92 94 Oximetry 02/10/18 02/10/18 02/10/18 01:06 01:15 01:31 Temperature Pulse Rate 82 73 70 Respiratory 18 22 24 Rate Blood Pressure 166/93 149/93 144/88 (mmHg) O2 Sat by Pulse 95 92 95 Oximetry 02/10/18 02/10/18 02/10/18 01:46 02:00 02:01 Temperature Pulse Rate 71 69 65 Respiratory 22 24 17 Rate Blood Pressure 163/82 93/78 (mmHg) O2 Sat by Pulse 94 93 94 Oximetry 02/10/18 02/10/18 02/10/18 02:14 02:15 02:16 Temperature Pulse Rate 68 65 Respiratory 16 19 16 Rate Blood Pressure 141/98 145/79 (mmHg) O2 Sat by Pulse 92 92 Oximetry 02/10/18 03:30 Temperature Pulse Rate Respiratory 16 Rate Blood Pressure (mmHg) O2 Sat by Pulse Oximetry Eyes: No Scleral Icterus, PERRLA Ears/Nose/Mouth/Throat: Mucous Membranes Moist, - - no teeth Neck: NL Appearance and Movements; NL JVP, Trachea Midline, No Thyroid Enlargement, Masses, - Respiratory: Symmetrical Chest Expansion and Respiratory Effort, Clear to Auscultation Cardiovascular: NL Sounds; No Murmurs; No JVD, RRR, No Edema Abdominal: NL Sounds; No Tenderness; No Distention Extremities: No Edema Skin: No Rash or Ulcers Neurological: Alert and Oriented x 3, NL Sensation, NL Muscle Strength and Tone Result Diagrams: 02/09/18 23:24 02/09/18 23:24 Assess/Plan/Problems-Billing Assessment: 73 yr old wf with sig fhx of cad htn mborid obesity presented to er with sudden onset of chest pain---> pt was ri for non st elevation mi with flipped t seen on anterior leads ---> got asa/plavix/lovenox ( theraputic ) from er ---> this blurb writer added nitro paste and gave her a dose of ativan 0.5 for her anxiety ---> repeat ekg was done at 4 am showed improvement of her flipped t ( amplitude ) - Patient Problems (1) HTN (hypertension) Current Visit: No Status: Acute Code(s): I10 - ESSENTIAL (PRIMARY) HYPERTENSION SNOMED Code(s): 46164729 Comment: Normotensive postoperatively She is not on any home antihypertensives (2) Morbid obesity Current Visit: Yes Status: Acute Code(s): E66.01 - MORBID (SEVERE) OBESITY DUE TO EXCESS CALORIES SNOMED Code(s): 779710444 (3) Non-ST elevation myocardial infarction (NSTEMI) greater than 8 weeks ago Current Visit: Yes Status: Acute Code(s): I25.2 - OLD MYOCARDIAL INFARCTION SNOMED Code(s): 367579281 Comment: pt chest pain went down to 3 prior to nitro paste and ativan ---> was sleeping when re-eval and ekg showed improvement got asa/plavix/lovenox as well - tele with herber - cardio eval (4) Elevated d-dimer Current Visit: Yes Status: Acute Code(s): R79.89 - OTHER SPECIFIED ABNORMAL FINDINGS OF BLOOD CHEMISTRY SNOMED Code(s): 018449053 Comment: got treated with theraputic dose of lovenox for her heart problem -- -> repeat d dimer in am ?? the need for pul embolism workup she is not in any respiratoy distress since adm and walks around at home
[2018-02-10] MEDS: NS 0.9% 1000 ML* 1,000 ML IV SCH ×2 (05:21→22:03)
[2018-02-10 06:03] LABS: ABS Basophils 0.1 10^3/ul (0-0.2); ABS Eosinophils 0.2 10^3/ul (0-0.6); ABS Lymphocytes 1.6 10^3/ul (1.0-4.8); ABS Monocytes 0.7 10^3/ul (0-0.8); ABS Neutrophils 5.2 10^3/ul (1.5-7.7); ABS Nucleated RBC 0 10^3/ul; Eosinophil % 2.9 % (0-6); Hematocrit 38 % (35-47); Hemoglobin 12.8 g/dl (12.0-16.0); Lymphocyte % 20.2 % (25-47); Mean Corpuscular HGB Conc 34 g/dl (31-36); Mean Corpuscular Hemoglobin 30 pg (27-31); Mean Corpuscular Volume 88 fL (80-97); Mean Platelet Volume 8.3 um3 (7.4-10.4); Nucleated Red Blood Cells % 0.2; Platelet Count 205 10^3/ul (150-450); Red Blood Count 4.34 10^6/ul (4.00-5.40); Red Cell Distribution Width 13 % (10.5-15); White Blood Count 7.7 10^3/ul (3.5-10.8)
--- NOTE | 2018-02-10 08:04 | RAD ---
Indication: 2 weeks RIGHT side chest pain with worsening. Asthma. Comparison: CT chest of the same date. August 03, 2016 chest radiograph Technique: Upright AP 2320 hours Report: Chronic moderately severe elevation of the LEFT hemidiaphragm with proportional basilar atelectasis. Chronic mild prominence of the interstitial markings. No focal pulmonary lesion, compelling alveolar consolidation, pleural effusion, pneumothorax. Upper normal heart size. Unremarkable central pulmonary vasculature and mediastinal contours. IMPRESSION: #. Stigmata of probable chronic obstructive pulmonary disease. Chronic elevation of the LEFT hemidiaphragm with basilar atelectasis. No acute cardiopulmonary process evident. R0
[2018-02-10] MEDS ORDERED: Diazepam TAB(*) 5 MG PO PRN (11:04)
[2018-02-10] MEDS ORDERED: diPHENhydraMINE PO* 25 MG PO PRN (11:04)
[2018-02-10] MEDS ORDERED: Perflutren Lipid Microsphere* 3 ML VIAL ONE (11:31)
--- NOTE | 2018-02-10 12:31 | CONS ---
CC: Sebastián Braga MD; [facility] [place] * CARDIOLOGY CONSULTATION: DATE OF CONSULT: 02/10/18 INDICATION FOR CONSULTATION: Chest pain, non-STEMI. HISTORY OF PRESENT ILLNESS: The patient is a 73-year-old female with a history of hypertension, arthritis, multiple knee and hip surgeries who has been having chest pain for a couple of weeks. The patient underwent cardiology consultation with Dr. Sebastián Braga on 01/24/18. Since then, she has undergone a stress test and an echocardiogram. Her echocardiogram showed normal LV size and systolic function. Her stress test reported as normal perfusion; however, there is some concern about anteroapical ischemia. The patient states she was at home last night doing a puzzle and started having pain that radiated to her shoulder and then to her back and neck. It was quite uncomfortable. She took a couple of aspirin without any relief and decided to come to the emergency room. On arrival to the emergency room, her EKG showed normal sinus rhythm with normal axis and intervals, slight T- wave flattening in the anterior leads. Her initial troponin level was 0.2. Subsequently, a repeat echocardiogram showed T-wave inversions in the anterior leads and her troponin went to a peak of 0.5. The patient was given Lovenox and Plavix in the emergency room and admitted to the hospital. The patient just underwent an echocardiogram here at [facility], which showed normal LV size with mildly reduced LV systolic function, ejection fraction of 40% with lateral wall hypokinesis. PAST MEDICAL HISTORY: Significant for gastroesophageal reflux disease, asthma, hypertension, depression, anxiety, hypothyroidism, hyperlipidemia. PAST SURGICAL HISTORY: Hip replacement on the right in 2016, bilateral knee replacements in 2002 and 2003, cholecystectomy in the past. OUTPATIENT MEDICATIONS: 1. Meloxicam as needed. 2. Buspirone 15 mg one and a half tabs daily. 3. Venlafaxine 150 mg a day. 4. Omeprazole 20 mg a day. 5. Levothyroxine 75 mcg a day. 6. Atorvastatin 40 mg a day. 7. VESIcare 5 mg a day. 8. Gabapentin 300 mg at night. 9. Lisinopril 20 mg a day. 10. Tylenol as needed. 11. Aspirin 81 mg a day. ALLERGIES: DILANTIN. FAMILY HISTORY: Three sisters and one brother with a history of heart disease with myocardial infarction. SOCIAL HISTORY: She is . She lives with her [id number]. She denies tobacco or alcohol use. She does not get any regular exercise due to her arthritis. REVIEW OF SYSTEMS: Negative for fevers and chills. Negative for changes in bowel or bladder habits. Negative for changes in weight. Other 12-point review is unremarkable. PHYSICAL EXAMINATION: Height is 5 feet 4 inches, weight 224 pounds. Temperature 97.8, heart rate is 71, blood pressure 126/63, respiratory rate is 18, oxygen saturation 94% on room air. Sclerae anicteric. Oropharynx is pink, without erythema. Carotids are 2+ without bruits. JVD is normal. Thyroid is normal. Cardiac: S1, S2 without any murmurs, rubs or gallops. PMI is normal. Lungs are clear to auscultation bilaterally. There is no dullness to percussion. Abdomen is soft, nontender, nondistended with normoactive bowel sounds. Extremities show no edema. She has 2+ pulses throughout. The patient is awake, alert, and oriented. She moves all 4 extremities equally. IMAGING: EKG as described above. LABORATORY STUDIES: CBC within normal limits. Chemistries within normal limits. BUN 24, creatinine 0.7. AST and ALT are normal. Alk phos is slightly elevated. BNP is normal at 51. Peak troponin 0.46. The patient had a CT angiogram of her chest in the emergency room. There was no evidence of pulmonary embolism. No evidence of dissection. No other pathology. IMPRESSION: This is a 73-year-old female who has been having crescendo angina for a couple of weeks. She experienced severe chest pain last night consistent with some non-ST elevation myocardial infarction. Her EKG and troponin levels are consistent with a non-ST elevation myocardial infarction. The patient is currently getting Lovenox, she got 300 of Plavix, she is taking an aspirin a day. It is my recommendation the patient undergo cardiac catheterization for further delineation of her cardiac status. The risks and benefits of this were described in great detail to the patient and the patient is willing to proceed. Further recommendations pending the result of her cardiac catheterization. [id number]/[facility] #: [id number] [facility]
--- NOTE | 2018-02-10 13:11 | ECHO ---
Patient: CHICO CABRAL Rec#: [id number] : 1945 Date: 02/10/2018 Age: 73y Height: 163 cm / 64.2 in Weight: 101.8 kg / 224.4 lbs Sex: F BSA: 2.06 Room#: [facility] Admit Date#: 02/10/2018 Type: Inpatient Referring: John Mendoza MD Reading: John Mendoza MD Eligibility And Occupancy Interviewer: Jacklyn Rosen RDCS CC: Gary Liz Transthoracic Echocardiogram Indication: Myocardial Infarction BP: 110/59 HR: 66 Rhythm: NSR with PACs Findings History: HTN, MO, family history of CAD, hypothyroidism. Technical Comments: The study quality is poor. The study is technically limited due to poor acoustic windows. Completed at 1245. Left Ventricle: Mild concentric left ventricular hypertrophy is observed. There are multiple regional wall motion abnormalities. There is mild to moderately decreased left ventricular systolic function. The estimated ejection fraction is 35-40%. Abnormal left ventricular diastolic function is observed. There is an E to A reversal in the mitral valve flow pattern suggestive of diastolic dysfunction. The mid anterior, apical lateral, and apical inferior wall segments are hypokinetic (score 2). The apical anterior wall segment is akinetic (score 3). Overall wallmotion score index is 2.25 Left Atrium: The left atrial chamber size is normal. Right Ventricle: Moderator Band present. The right ventricular cavity size is normal. The right ventricular global systolic function is normal. Right Atrium: The right atrial cavity size is normal. Aortic Valve: The aortic valve is trileaflet. The aortic valve leaflets are mildly thickened. There is no evidence of aortic regurgitation. There is no evidence of aortic stenosis. Mitral Valve: There is mitral annular calcification. The mitral valve leaflets are mildly thickened. There is a trace of mitral regurgitation. There is no evidence of mitral stenosis. Tricuspid Valve: The tricuspid valve leaflets are normal. There is trace tricuspid regurgitation. The right ventricular systolic pressure is estimated at 16 mmHg. There is no tricuspid stenosis. Pulmonic Valve: The pulmonic valve structure is not well visualized. There is a trace pulmonic regurgitation. There is no pulmonic stenosis. Pericardium: There is no significant pericardial effusion. A pericardial fat pad is visualized. Aorta: There is no dilatation of the ascending aorta. There is no dilatation of the aortic arch. The aortic root is normal in size. Pulmonary Artery: The main pulmonary artery is not well visualized. Venous: The inferior vena cava appears normal in size. There is a greater than 50% respiratory change in the inferior vena cava dimension. Contrast: Definity was used to optimize study. 8 mL of diluted Definity were utilized. Intravenous contrast was used to enhance endocardial border definition. Conclusions There is mild to moderately decreased left ventricular systolic function. The estimated ejection fraction is 35-40%. There are multiple regional wall motion abnormalities. The mid anterior, apical lateral, and apical inferior wall segments are hypokinetic (score 2). The apical anterior wall segment is akinetic (score 3). The right ventricular global systolic function is normal. There is no evidence of aortic stenosis. There is a trace of mitral regurgitation. There is trace tricuspid regurgitation. The right ventricular systolic pressure is estimated at 16 mmHg. There is no significant pericardial effusion. Compared to study of 02/03/18, the wall motion abnormalities are new Measurements Name Value Normal Range RVIDd (AP) 2D 2.2 cm (0.9 - 2.6) RVDdMajor (2D) 4.3 cm (2.2 - 4.4) RAd ISD 4CH 4.1 cm (3.4 - 4.9) RA (A4C)W 3.9 cm (2.9 - 4.6) IVSd (2D) 1.1 cm (0.6 - 1) LVPWd (2D) 1.2 cm (0.6 - 1) LVIDd (2D) 4.5 cm (3.6 - 5.4) LVIDs (2D) 3.5 cm - LV FS (2D) 23 % (25 - 45) Aortic Annulus 2.2 cm (1.4 - 2.6) Ao root diameter (2D) 3.3 cm (2.1 - 3.5) Ascending Ao 2.9 cm (2.1 - 3.4) Aortic arch 2.6 cm (1.8 - 3.4) LA dimension (AP) 2D 3.8 cm (2.3 - 3.8) LAd ISD 4CH 5.2 cm (2.9 - 5.3) LA ISD 4CH W 4.6 cm (2.5 - 4.5) Name Value Normal Range LA ESV BP (A/L) index 32 ml/m2 - Name Value Normal Range MV E-wave Vmax 0.6 m/sec - MV deceleration time 194 msec - MV A-wave Vmax 1.1 m/sec - MV E:A ratio 0.6 ratio - LV septal e' Vmax 0.04 m/sec - LV lateral e' Vmax 0.04 m/sec - LV E:e' septal ratio 15 ratio - LV E:e' lateral ratio 15 ratio - Name Value Normal Range AV Vmax 1.3 m/sec - AV VTI 25.3 cm - AV peak gradient 7 mmHg - AV mean gradient 3 mmHg - LVOT Vmax 0.7 m/sec - LVOT VTI 13.8 cm - LVOT peak gradient 2 mmHg - LVOT mean gradient 1 mmHg - SCOTTY Vmax 0.6 m/sec - Name Value Normal Range TR Vmax 1.8 m/sec - TR peak gradient 13 mmHg - RAP 3 mmHg - RVSP 16 mmHg - IVC diameter 1.4 cm - Name Value Normal Range PV Vmax 0.7 m/sec - PV peak gradient 2 mmHg - Wallmotion BAS Not Seen BA Not Seen BAL Not Seen CARLA Not Seen BI Not Seen BIS Not Seen MAS Not Seen MA Hypokinetic MAL Not Seen MIL Not Seen MT Not Seen MIS Not Seen Not Seen AA Akinetic AL Hypokinetic AI Hypokinetic APEX Akinetic
[2018-02-10] MEDS ORDERED: Iohexol 350 (CONTRAST) 200 ML MDV IV ONE ×2 (13:33→14:50)
[2018-02-10] MEDS ORDERED: Heparin 2 UNITS/ML IVPREMIX* 2,000 ML IV ONE (13:33)
[2018-02-10] MEDS ORDERED: Lidocaine 1% INJ* 10 MG/ML 30 ML SDV ONE ×2 (13:33→13:42)
[2018-02-10] MEDS ORDERED: Midazolam* 1 MG/ML 10 ML VIAL (10 MG) ONE (13:41)
[2018-02-10] MEDS ORDERED: Heparin(*) 1000 UNIT/ML 10 ML VIAL CATH LAB IV ONE (13:41)
[2018-02-10] MEDS ORDERED: fentaNYL* 50 MCG/ML 2 ML VIAL (100 MCG VIAL) ONE (13:41)
[2018-02-10] MEDS ORDERED: VERAPAMIL 2.5 MG/ML 2 ML VIAL ** 5 mg/2 ml ONE (13:41)
[2018-02-10] MEDS ORDERED: Heparin 2 UNITS/ML IVPREMIX* 0 ML IV ONE (13:42)
[2018-02-10] MEDS ORDERED: nitroGLYCERIN DRIP* 25,000 MCG/250 ML BTL ONE (13:42)
[2018-02-10] MEDS ORDERED: Bivalirudin(*) 250 MG VIAL ONE (14:21)
[2018-02-10] MEDS ORDERED: Ticagrelor* 90 MG TAB PO ONE (14:31)
[2018-02-10] MEDS ORDERED: Nitroglycerin TAB 0.4 MG* 0.4 MG TAB SL PRN (15:02)
[2018-02-10] MEDS ORDERED: Haloperidol INJ IV/IM* 5 MG/ML AMP ONE (15:47)
[2018-02-10] MEDS ORDERED: Haloperidol INJ IV/IM* 5 MG/ML AMP IM PRN (15:49)
[2018-02-10] MEDS ORDERED: Haloperidol INJ IV/IM* 5 MG/ML AMP IM ONE (15:56)
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
[2018-02-10] MEDS: Dexmedetomidine* 400 MCG in NS 0.9% 100 ML* 96 ML IVPB SCH ×2 (16:33→21:52)
[2018-02-10] MEDS ORDERED: Dexmedetomidine* 400 MCG in NS 0.9% 100 ML* 96 ML IVPB SCH (17:00)
[2018-02-10] MEDS: Nitro Patch/OINT Remove TOPICAL SCH (17:12)
[2018-02-10] MEDS: Atorvastatin* 40 MG TAB PO SCH (17:12)
[2018-02-10] MEDS: Metoprolol Tartrate TAB* 25 MG PO SCH (21:21)
--- NOTE | 2018-02-11 03:25 | CATH ---
CC: Dr. Sebastián Braga; Dr. Liz at [place]; Dr. Lorenzo Navarrete * CARDIAC CATHETERIZATION NOTE: DATE OF PROCEDURE: 02/10/18 PROCEDURE: Cardiac catheterization including coronary angiography and left heart catheterization. INDICATION: Acute coronary syndrome, coronary artery disease. The patient is a 73-year-old female with history of hypertension and strong family history of coronary artery disease, who has been having chest pain on and off for couple of weeks. The patient was admitted to the hospital with chest pain. Her initial troponin was 0.2, which george to 0.5. Her EKG had dynamic T-wave changes. Cardiac catheterization was recommended. The patient did have an echocardiogram prior to the catheterization, which showed apical akinesis, distal septal wall hypokinesis, and distal anterior wall hypokinesis, ejection fraction of 40% to 45%. PROCEDURE IN DETAIL: The patient was brought to the cath room in a fasting state. Informed consent had been obtained prior to the procedure. All labs had been reviewed. The patient was placed supine on the catheterization stable. The right wrist area was prepped and draped in the usual fashion. 1% lidocaine was used for local anesthesia. The radial artery was entered by a modified Seldinger technique and a guidewire. Over the guidewire, a 6-Salvadorean sheath introducer was placed. The patient underwent coronary angiography and left heart catheterization using 6- Salvadorean TIG catheter and a 6-Salvadorean AR1 catheter. At the end of the procedure, the patient went on to angioplasty and stenting of her diagonal vessels. Please see Dr. Navarrete's note for detail. A total of 60 cc of Omnipaque dye was used. A total of 4 minutes of fluoro time was used. FINDINGS: Central aortic pressure 137/65 with a mean of 91. Left ventricular pressure 134/9 with end-diastolic pressure of 18. The proximal part of the innominate artery of the arch had some tortuosity to it. It was able to be navigated with a Wholey wire. Coronary arteries: 1. Left main artery: The left main was normal in size. It bifurcated into the LAD and circumflex. There was no evidence of stenosis. 2. Left anterior descending: The LAD was normal in size. It gave off 1 diagonal branch. After the diagonal branch, it was 100% occluded. 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 The first diagonal vessel had a proximal to mid 95% stenosis. Left circumflex artery: The circumflex artery was normal in size. It is a dominant vessel. It gave off the PDA. There were three obtuse marginal branches. There was no evidence of stenosis. Right coronary artery: The RCA is a dominant vessel. However, it gave off a large RV marginal branch. There was no evidence of stenosis. There was extensive collaterals from the distal right coronary artery to the mid and distal LAD. IMPRESSION: 1. Occluded LAD with extensive collaterals to the mid and distal LAD via right coronary artery. 2. First diagonal vessel off of LAD with 95% stenosis. 3. No significant disease to the large dominant left circumflex artery or right coronary artery. 4. Successful radial artery catheterization. RECOMMENDATION: The patient will undergo stenting to her diagonal vessel and an attempted opening to the LAD. [id number]/[facility] #: [id number] [facility]
[2018-02-11] MEDS: Dexmedetomidine* 400 MCG in NS 0.9% 100 ML* 96 ML IVPB SCH ×4 (03:43→23:50)
[2018-02-11] MEDS: Nitroglycerin 2% OINT* 1 GM PAK TOPICAL SCH ×2 (05:45→14:00)
[2018-02-11 06:22] LABS: ABS Basophils 0 10^3/ul (0-0.2); ABS Eosinophils 0 10^3/ul (0-0.6); ABS Lymphocytes 0.8 10^3/ul (1.0-4.8); ABS Monocytes 0.4 10^3/ul (0-0.8); ABS Neutrophils 8.7 10^3/ul (1.5-7.7); ABS Nucleated RBC 0 10^3/ul; Eosinophil % 0 % (0-6); Hematocrit 38 % (35-47); Hemoglobin 13.1 g/dl (12.0-16.0); Lymphocyte % 8.1 % (25-47); Mean Corpuscular HGB Conc 35 g/dl (31-36); Mean Corpuscular Hemoglobin 30 pg (27-31); Mean Corpuscular Volume 87 fL (80-97); Mean Platelet Volume 8.7 um3 (7.4-10.4); Nucleated Red Blood Cells % 0; Platelet Count 204 10^3/ul (150-450); Red Blood Count 4.36 10^6/ul (4.00-5.40); Red Cell Distribution Width 13 % (10.5-15)
[2018-02-11 06:31] LABS: EGFR Non-African American 89.1 (>60)
--- NOTE | 2018-02-11 08:32 | PN ---
Subjective Date of Service: 02/11/18 Interval History: HOSPITALIST PROGRESS NOTE Patient seen and examined at bedside. Care reviewed and d/w Alvaro Deshpande RN. She's still on a Precedex drip, but more oriented when we try to wake her up. Overnight events noted and d/w RN. Family History: Unchanged from Admission Social History: Unchanged from Admission Past Medical History: Unchanged from Admission Objective Active Medications: Aspirin (Ecotrin Ec Tab*) 325 mg PO DAILY [facility] Atorvastatin Calcium (Lipitor*) 40 mg PO 1700 [facility] Last Admin: 02/10/18 17:12 Dose: Not Given Clopidogrel Bisulfate (Plavix Tab*) 75 mg PO DAILY [facility] Haloperidol Lactate (Haldol Inj Iv/Im*) 5 mg IM Q6H PRN PRN Reason: AGITATION Last Admin: 02/11/18 07:58 Dose: 5 mg Dexmedetomidine HCl 400 mcg/ (Sodium Chloride) 100 mls @ 5.08 mls/hr IVPB Q19H [facility]; Protocol Last Admin: 02/11/18 03:43 Dose: 15 mls/hr Metoprolol Tartrate (Lopressor Tab*) 12.5 mg PO BID [facility] Last Admin: 02/10/18 21:21 Dose: Not Given Nitroglycerin (Nitroglycerin 2% Oint*) 0.5 inch TOPICAL 0600,1200 [facility]; Protocol Last Admin: 02/11/18 05:45 Dose: 0.5 inch Nitroglycerin (Nitroglycerin Tab 0.4 Mg*) 0.4 mg SL Q5M PRN PRN Reason: ANGINA Pharmacy Profile Note (Nitro Patch/Oint Remove*) 1 note TOPICAL 1800 [facility] Last Admin: 02/10/18 17:12 Dose: 1 applic Vital Signs - 8 hr 02/11/18 02/11/18 02/11/18 01:00 01:30 02:00 Temperature Pulse Rate 70 74 74 Respiratory 25 27 26 Rate Blood Pressure 164/75 148/77 154/74 (mmHg) O2 Sat by Pulse 92 94 93 Oximetry 02/11/18 02/11/18 02/11/18 02:30 03:00 03:30 Temperature Pulse Rate 73 72 72 Respiratory 27 26 22 Rate Blood Pressure 138/75 147/69 159/73 (mmHg) O2 Sat by Pulse 92 93 93 Oximetry 02/11/18 02/11/18 02/11/18 03:50 04:00 04:30 Temperature 99.4 F Pulse Rate 72 74 Respiratory 20 27 26 Rate Blood Pressure 151/75 146/77 (mmHg) O2 Sat by Pulse 93 93 Oximetry 02/11/18 02/11/18 02/11/18 05:00 05:30 05:52 Temperature Pulse Rate 79 73 Respiratory 28 26 22 Rate Blood Pressure 151/74 149/70 (mmHg) O2 Sat by Pulse 93 92 Oximetry 02/11/18 02/11/18 02/11/18 06:00 06:01 06:30 Temperature Pulse Rate 71 68 84 Respiratory 25 25 29 Rate Blood Pressure 149/71 (mmHg) O2 Sat by Pulse 92 93 92 Oximetry 02/11/18 02/11/18 02/11/18 06:32 06:35 07:00 Temperature Pulse Rate 82 83 68 Respiratory 21 25 28 Rate Blood Pressure 139/85 128/63 (mmHg) O2 Sat by Pulse 93 92 93 Oximetry 02/11/18 02/11/18 02/11/18 07:30 07:41 07:56 Temperature 100.6 F Pulse Rate 69 Respiratory 25 25 Rate Blood Pressure 142/73 (mmHg) O2 Sat by Pulse 93 Oximetry 02/11/18 02/11/18 08:00 08:01 Temperature Pulse Rate 62 69 Respiratory 28 29 Rate Blood Pressure 135/62 (mmHg) O2 Sat by Pulse 93 92 Oximetry Oxygen Devices in Use Now: Nasal Cannula Appearance: Obese lady lying in bed in NAD. Eyes: No Scleral Icterus Ears/Nose/Mouth/Throat: Mucous Membranes Moist Neck: Trachea Midline Respiratory: Symmetrical Chest Expansion and Respiratory Effort, Clear to Auscultation Cardiovascular: RRR - Normal Abdominal: NL Sounds; No Tenderness; No Distention Extremities: No Edema, - - Right wrist - good pulse, minimal ecchymosis, no palpable hematoma, good capillary refill Neurological: - - Sedated, moves all 4 ext Result Diagrams: 02/11/18 06:00 02/11/18 06:00 Assess/Plan/Problems-Billing Assessment: Mrs Gutiérrez is a 73 yo F with PMH of remote TBI, obesity, HTN, who presented to ED with c/o chest pain, found to have NSTEMI, complicated by delirium. - Patient Problems (1) Delirium Comment: - Multifactorial in the setting of NSTEMI, Versed/Fentanyl use, and ICU stay in a patient with known TBI. - CT brain showed no acute lesions. - Will titrate Precedex down and see how agitated she becomes. - Neurology consult requested. - EEG ordered. (2) NSTEMI (non-ST elevated myocardial infarction) Comment: - S/p cardiac cath 02/10/18 - LAD 100% occluded with extensive collaterals, 95% 1st diagonal s/p ORION. - Will titrate Precedex off and try to give PO Aspirin, Plavix, Atorvastatin, and Metoprolol. If she becomes severely agitated and requires Precedex again, will place NGT to give her the meds. (3) HTN (hypertension) Comment: - Controlled. - Continue Metoprolol. (4) Fever Comment: - Tmax 100.6 this AM - check CxR and UA. - Only one episode of low grade fever so far. - Continue to monitor. (5) DVT prophylaxis Comment: - SQ heparin. (6) Full code status Status and Disposition: Inpatient. Continue to monitor in ICU.
[2018-02-11] MEDS ORDERED: Aspirin EC TAB* 325 MG PO SCH (09:00)
--- NOTE | 2018-02-11 09:23 | RAD ---
HISTORY: Altered mental status COMPARISONS: October 12, 2015 TECHNIQUE: Multiple contiguous axial CT scans were obtained of the head without intravenous contrast. FINDINGS: The study is limited by patient motion artifact. HEMORRHAGE/INFARCT: There is no hemorrhage or acute infarct. MASSES/SHIFT: There is no mass or shift. EXTRA-AXIAL SPACES: There are no extra-axial fluid collections. SULCI AND VENTRICLES: The sulci and ventricles are normal in size and position for the patient's stated age. CEREBRUM: There is hypoattenuation of the periventricular and subcortical white matter. BRAINSTEM: There are no focal parenchymal abnormalities. CEREBELLUM: There are no focal parenchymal abnormalities. VESSELS: The vessels are grossly normal. PARANASAL SINUSES: The paranasal sinuses are clear. ORBITS: The orbits are unremarkable. BONES AND SOFT TISSUE: No bone or soft tissue abnormalities are noted. OTHER: None IMPRESSION: LIMITED STUDY. NO ACUTE INTRACRANIAL PATHOLOGY. CHRONIC SMALL VESSEL ISCHEMIC CHANGES
[2018-02-11] MEDS ORDERED: levETIRAcetam IV* 1,000 MG in NS 100 mL IVPB ONE (12:00)
--- NOTE | 2018-02-11 12:59 | RAD ---
INDICATION: Fever. Status post NG tube placement. COMPARISON: Most recent comparison chest x-rays dated February 09, 2018 TECHNIQUE: Single AP portable view of the chest was obtained. FINDINGS: Image quality is compromised due to the relative inferiority of a portable chest x-ray. There is been interval placement of a gastric tube. There is elevation of the left hemidiaphragm and the tip of the tube terminates over this elevated left hemidiaphragm presumably in the gastric fundus. The heart and mediastinum exhibit normal size and contour. Similar the prior chest x-ray there is asymmetric elevation of the left hemidiaphragm. There is density obscuring the left lung base likely due to atelectasis. The pulmonary vasculature appears engorged and indistinct. Visualized bones are normal for the patient's age. IMPRESSION: 1. There has been interval placement of a gastric tube with the tip terminating over the elevated left hemidiaphragm is probably in the gastric fundus. Please correlate to auscultation and any gastric secretions expressed from the gastric tube. 2. Density in the left lung base could be due to atelectasis and/or pneumonia. 3. Similar to the prior chest x-ray, appearance is consistent with at least mild vascular congestion.
--- NOTE | 2018-02-11 13:12 | CATH ---
CC: Dr. John Mendoza; Dr. Sebastián Braga; Dr. Gary Liz * INTERVENTIONAL REPORT: DATE OF PROCEDURE: 02/10/18 - ROOM #ICU-05 PROCEDURE: Balloon angioplasty and stent placement with a 2.25 x 28 mm long Synergy drug-eluting stent in the first diagonal branch. Brief probing of the totally occluded LAD. INDICATIONS FOR PROCEDURE: The patient was already prepped and draped in sterile fashion with a right radial artery sheath in place from the diagnostic procedure performed by Dr. John Mendoza. MEDICATIONS GIVEN: During this part of the procedure included: 1. An Angiomax bolus. 2. An Angiomax drip. 3. Intracoronary nitroglycerin. EQUIPMENT UTILIZED: 1. Guiding catheter was a 6-Danish Heartrail III IL 3.5 curve catheter. The guidewire utilized was a BMW regular length. 2. Balloon angioplasty pre-stent deployment with a 2.0 x 15 mm long Emerge balloon. 3. Stent placement was a 2.25 x 28 mm long Synergy drug-eluting stent. 4. Post deployment balloon inflation catheter: Was a 2.25 x 12 mm long Emerge balloon. PROCEDURE IN DETAIL: The patient underwent imaging to setup guideline views. The patient received a bolus of Angiomax and Angiomax drip was started. The BMW wire was advanced to the diagonal branch and placed in the distal portion of the vessel. Balloon angioplasty was performed utilizing the 2.0 x 15 mm long balloon. The stent (2.25 x 28 mm long Synergy drug-eluting stent) was deployed followed by post deployment balloon inflations to high pressure utilizing to 2.25 x 12 mm long NC Emerge balloon. Following that, the guidewire was placed into the LAD to attempt crossing of the total occlusion. After a period of time of attempts, it was found to be resistant closure and in light of the presence of significant collaterals to the LAD, no further attempts were made to open the LAD at this point. The wire was removed and the catheter was removed and hemostasis was obtained with a Vasc Band. The total contrast used was 100 cc of Omnipaque dye. The radiation exposure for the total procedure included 15.3 minutes of fluoro time. The air kerma radiation was 3297 mGy. The DAP radiation was 19,310 microgray/meter squared. Of note, the patient was mildly agitated before starting the interventional procedure. Dr. Mendoza came back in the room and spoke with her and he felt she was ok to proceed for intervention. She was intermittently agitated during the procedure and when the procedure was completed, was brought to the intensive care unit. Vital signs were stable. O2 saturation was 95%. RESULTS: Successful intervention to critically stenosed 1st diagonal proximal 95% lesion followed by 75% lesion with residual stenosis in the first diagonal branch with resultant 0% residual stenosis, TERESA-3 flow, and no dissection seen. Of note - Dr. Mendoza and Dr. Schofield were notified of this result as well as the patient is somewhat agitated state, and I personally asked that the hospitalist see the patient for further evaluation of the agitation. [id number]/[facility] #: [id number] MTDD
[2018-02-11 13:27] LABS: Urine Appearance Cloudy; Urine Blood Negative (Negative); Urine Color Yellow; Urine Ketones Negative (Negative); Urine Protein Negative (Negative); Urine Urobilinogen Negative (Negative)
[2018-02-11] MEDS: Clopidogrel TAB* 75 MG PO SCH (13:53)
[2018-02-11] MEDS: Heparin VIAL(*) 5000 UNITS/ML VIAL (FIVE THOUSAND) SUBCUT SCH ×2 (13:53→21:16)
[2018-02-11] MEDS: Metoprolol Tartrate TAB* 25 MG PO SCH ×2 (13:53→21:17)
[2018-02-11] MEDS ORDERED: Aspirin TAB* 325 MG NG TUBE SCH (14:00)
[2018-02-11] MEDS: Polyethylene Glycol 3350* 17 GM PACKET NG TUBE SCH ×2 (16:00→21:16)
[2018-02-11] MEDS: Atorvastatin* 40 MG TAB PO SCH (16:00)
[2018-02-11] MEDS ORDERED: Azithromycin IV(*) 500 MG in NS 0.9% 250 ML* 250 ML IVPB SCH (17:00)
[2018-02-11] MEDS ORDERED: cefTRIAXone(*) 1 GM in NS 0.9% 50 ML* 50 ML IVPB SCH (18:00)
[2018-02-11] MEDS: Nitro Patch/OINT Remove TOPICAL SCH (19:02)
[2018-02-11] MEDS ORDERED: Ziprasidone IM INJ* 20 MG/ML VIAL IM ONE (20:00)
[2018-02-11] MEDS ORDERED: Ziprasidone IM INJ* 20 MG/ML VIAL ONE (20:03)
--- NOTE | 2018-02-11 23:17 | CONS ---
CONSULTATION REPORT: DATE OF CONSULT: 02/11/18 PATIENT OF: Dr. Navarrete and Dr. Domingo. HISTORY OF PRESENT ILLNESS: This is a 73-year-old woman presenting with chest pain with past history of hypertension, obesity, and myocardial infarction. She received cardiac cath for non-ST elevation UT. I spoke to Dr. Navarrete, who said that she was somewhat agitated before the cath procedure, but her family notes that sees is a worrier, when she gets anxious, she could get agitated like that. It is unclear whether this is anything new or different but it is not. It sounds like this is what she can do before something upsetting happens to her. She, however, since the procedure, which went without any clear complications, has had agitation following this and she was seen by Dr. Domingo yesterday for this agitation and thrashing in her bed. She has been sedated on a Precedex drip and other medications. However, she continued to not fully arouse and she has some focal symptoms today and I was called, she may not even moving her left side as well as her right according to her family. She had no history of seizures. Prior to admission, her main complaint was chest pain the night before admission radiating to her shoulder and into her back and neck. PAST MEDICAL HISTORY: Significant GE reflux, asthma, hypertension, depression, anxiety, hypothyroidism, hyperlipidemia. PAST SURGICAL HISTORY: She is status post right hip replacement, bilateral knee replacements, and cholecystectomy. MEDICATIONS: As outpatient included: 1. Meloxicam as needed. 2. Buspirone 15 mg 1-/2 daily. 3. Venlafaxine 150 daily. 4. Omeprazole 20 mg daily. 5. Levothyroxine 75 mcg a day. 6. Atorvastatin 40 mg a day. 7. VESIcare 5 mg a day. 8. Gabapentin 300 at night. 9. Lisinopril 20 mg a day. 10. Tylenol as needed. 11. Aspirin 81 mg daily. ALLERGIES: Include DILANTIN. FAMILY HISTORY: Significant for heart disease with myocardial infarction. SOCIAL HISTORY: She is and lives with her [id number]. She denies tobacco or alcohol use. She does not get any regular exercise due to her arthritis. REVIEW OF SYSTEMS: Negative other than the chest pain that she came in for. PHYSICAL EXAM: I have seen her 2 separate times today. Her temperature is now 95.5 and early today it was 99.9, pulse 61, respirations 27, blood pressure 130/ 71. She was able to open her eyes and talk and follow some commands. I have come back this evening to evaluate her further but she has been further sedated until her exam is obscured but at the time I initially saw her, she had a clear visual field deficit or neglect to the left to even large objects or hands. She had decreased power in her left side but was very cooperative, it appeared to be at least 4/5 in her arm and at least 4-/5 in her leg, but is coming back to evaluate her further, her right side was 5/5. Reflexes were 1, toes were equivocal, was unable to get enough information from a sensory exam. Chest: Clear. Cardiovascular: Regular rate and rhythm. Abdomen: Soft. DIAGNOSTIC STUDIES/LAB DATA: CT of her head that was done this morning showed some chronic small vessel ischemic changes, nothing acute. Her labs include a white count of 10, hematocrit 38, platelets 204. Normal INR and PTT. D-dimer 291. She had normal CMP other than a total protein of 6.3, glucose 152. Troponin is currently 0.78. UA was negative. EEG showed some diffuse slowing with some sharp transients, no clear subclinical seizures. The significance of the EEG showed possible underlying brain irritation with possible tendency at this point for seizures and she has been given Keppra. IMPRESSION AND PLAN: There are 2 possibilities she has had some underlying traumatic brain injury with some limited mentation but no focal deficits in the past; however, it is possible that there is an underlying focality that has been brought out by her sedation following her procedure and that this may be old findings that have been exacerbated or brought out by medications she is receiving. The other and main concern is that she may have suffered a stroke. I discussed this with the family. We could not get MRI scan earlier because she was too agitated and now she is sedated and so we could not get an MRI scan now. She is on atorvastatin, aspirin, and Plavix. I discussed this with family. There is no window for her to be a tPA candidate since her focal findings did not emerge until she began to wake up more, so the onset is unclear. Even if this was a stroke and has a large vessel occlusion, she would have been out of the window early this afternoon for clot retrieval intervention , but it is important to establish what the cause of the stroke is. Even if she has had a stroke and we thought it was cardioembolic, we will not give anticoagulation at this point because of the risks of bleeding acutely will outweigh the benefits. Thank you for sharing her case. [id number]/[facility] #: [id number] JOEL
[2018-02-12] MEDS: Heparin VIAL(*) 5000 UNITS/ML VIAL (FIVE THOUSAND) SUBCUT SCH ×3 (05:52→21:16)
[2018-02-12] MEDS: Nitroglycerin 2% OINT* 1 GM PAK TOPICAL SCH (05:52)
[2018-02-12] MEDS: Dexmedetomidine* 400 MCG in NS 0.9% 100 ML* 96 ML IVPB SCH ×2 (07:19→12:30)
[2018-02-12] MEDS: Metoprolol Tartrate TAB* 25 MG PO SCH ×2 (08:10→21:15)
[2018-02-12] MEDS: Clopidogrel TAB* 75 MG PO SCH (08:10)
[2018-02-12] MEDS: Polyethylene Glycol 3350* 17 GM PACKET NG TUBE SCH ×2 (08:10→19:44)
[2018-02-12] MEDS: Aspirin EC TAB* 81 MG TAB.EC SCH (08:10)
[2018-02-12 08:12] LABS: ABS Basophils 0.1 10^3/ul (0-0.2); ABS Eosinophils 0 10^3/ul (0-0.6); ABS Nucleated RBC 0 10^3/ul; Eosinophil % 0.3 % (0-6); Hematocrit 34 % (35-47); Hemoglobin 11.9 g/dl (12.0-16.0); Lymphocyte % 8.6 % (25-47); Mean Corpuscular HGB Conc 35 g/dl (31-36); Mean Corpuscular Hemoglobin 30 pg (27-31); Mean Corpuscular Volume 87 fL (80-97); Mean Platelet Volume 8.5 um3 (7.4-10.4); Nucleated Red Blood Cells % 0; Platelet Count 171 10^3/ul (150-450); Red Blood Count 3.95 10^6/ul (4.00-5.40); Red Cell Distribution Width 13 % (10.5-15); White Blood Count 12.1 10^3/ul (3.5-10.8)
[2018-02-12 08:32] LABS: EGFR Non-African American 97.7 (>60)
--- NOTE | 2018-02-12 10:21 | EEG ---
ELECTROENCEPHALOGRAPHY: DATE OF STUDY: 02/11/18 - ROOM #ICU-05 PATIENT OF: Johanna Domingo MD CLINICAL PROBLEM: This is a 73-year-old woman being evaluated for obtundation following a cardiac cath. She has been somewhat agitated. She has had a past history of traumatic brain injury, migraines, and borderline dementia. MEDICATIONS: Include: 1. Aspirin. 2. Plavix. 3. Metoprolol. 4. Nitro. 5. Atorvastatin. 6. Precedex. 7. Haldol. REPORT: With the patient obtunded, background cerebral activity consists of admixed delta, theta, and alpha range frequencies. Occasional left temporal sharp- wave activity is noted, but does not occur frequently throughout, but occurs just on occasion throughout this tracing. At times, there is prominent muscle movement artifact. No subclinical seizures are noted. CLINICAL IMPRESSION: This obtunded EEG is abnormal because of diffuse slowing of background and left temporal sharp waves but no subclinical seizures. [id number]/[facility] #: [id number] MTDD
[2018-02-12] MEDS ORDERED: Ziprasidone IM INJ* 20 MG/ML VIAL IM ONE (11:57)
--- NOTE | 2018-02-12 13:03 | RAD ---
HISTORY: Hemiparesis (laterality not defined on requisition) COMPARISONS: Brain MR dated September 14, 2015 TECHNIQUE: The following sequences were obtained of the head: Sagittal T1-weighted images, axial T2-weighted images, axial FLAIR images, axial susceptibility weighted images, axial T1-weighted images. Additionally, axial diffusion-weighted images were obtained with calculated apparent diffusion coefficients.. FINDINGS: Image quality is limited by motion artifact. HEMORRHAGE/INFARCT: There is no hemorrhage or acute infarct. MASSES/SHIFT: There is no mass or shift. EXTRA-AXIAL SPACES/MENINGES: There are no extra-axial fluid collections. SULCI AND VENTRICLES: The sulci and ventricles are normal in size and position for the patient's stated age. CEREBRUM: There is mild to moderate periventricular and subcortical T2 bright foci. These do not correspond to any bright foci on diffusion-weighted imaging. Otherwise the gold-white matter differentiation is appropriately maintained. There is no mass, mass effect or substantial intracranial shift. BRAINSTEM: There are no focal parenchymal abnormalities. CEREBELLUM: There are no focal parenchymal abnormalities. The cerebellar tonsils are normal in size and position. SELLA: The sella is normal. PINEAL: The pineal region is clear. CP ANGLE/TEMPORAL BONES: The labyrinthine structures are grossly normal. VESSELS: Normal flow-voids are noted within the visualized vertebral vasculature. DIFFUSION ABNORMALITIES: There are no diffusion abnormalities. PARANASAL SINUSES/MASTOIDS: The paranasal sinuses are clear. ORBITS: The orbits are unremarkable. BONES AND SOFT TISSUE: No bone or soft tissue abnormalities are noted. IMPRESSION: MR FINDINGS OF THIS LIMITED QUALITY EXAMINATION ARE MOST CONSISTENT WITH CHRONIC MICROVASCULAR DISEASE SIMILAR IN APPEARANCE TO THE PREVIOUS MRI OF THE BRAIN.
--- NOTE | 2018-02-12 13:21 | PN ---
Subjective Date of Service: 02/12/18 Interval History: HOSPITALIST PROGRESS NOTE Patient seen and examined at bedside. Care reviewed and d/w Anh Davis RN. She is more awake today and able to answer questions. Denies pain, dyspnea, palpitations. Still seems to be confused and has difficulty following commands. Family History: Unchanged from Admission Social History: Unchanged from Admission Past Medical History: Unchanged from Admission Objective Active Medications: Aspirin (Aspirin Ec Tab*) 81 mg .SEE ORDER DAILY [facility] Last Admin: 02/12/18 08:10 Dose: 81 mg Atorvastatin Calcium (Lipitor*) 40 mg PO 1700 [facility] Last Admin: 02/11/18 16:00 Dose: 40 mg Clopidogrel Bisulfate (Plavix Tab*) 75 mg PO DAILY [facility] Last Admin: 02/12/18 08:10 Dose: 75 mg Heparin Sodium (Porcine) (Heparin Vial(*)) 5,000 units SUBCUT Q8HR [facility] Last Admin: 02/12/18 05:52 Dose: 5,000 units Ceftriaxone Sodium 1 gm/ (Sodium Chloride) 50 mls @ 200 mls/hr IVPB Q24H [facility] Last Admin: 02/11/18 17:57 Dose: 200 mls/hr Dexmedetomidine HCl 400 mcg/ (Sodium Chloride) 100 mls @ 5.08 mls/hr IVPB Q10H [facility]; Protocol Last Admin: 02/12/18 12:30 Dose: 37.5 mls/hr Metoprolol Tartrate (Lopressor Tab*) 12.5 mg PO BID [facility] Last Admin: 02/12/18 08:10 Dose: Not Given Nitroglycerin (Nitroglycerin Tab 0.4 Mg*) 0.4 mg SL Q5M PRN PRN Reason: ANGINA Pharmacy Profile Note (Nitro Patch/Oint Remove*) 1 note TOPICAL 1800 [facility] Last Admin: 02/11/18 19:02 Dose: 1 applic Polyethylene Glycol/Electrolytes (Miralax*) 17 gm NG TUBE 0800,2100 [facility] Last Admin: 02/12/18 08:10 Dose: 17 gm Vital Signs - 8 hr 02/12/18 02/12/18 02/12/18 05:31 05:51 06:00 Temperature Pulse Rate 68 55 Respiratory 30 28 28 Rate Blood Pressure 144/77 (mmHg) O2 Sat by Pulse 91 91 Oximetry 02/12/18 02/12/18 02/12/18 06:01 06:31 07:00 Temperature Pulse Rate 55 56 52 Respiratory 27 24 27 Rate Blood Pressure 162/75 124/70 (mmHg) O2 Sat by Pulse 90 92 92 Oximetry 02/12/18 02/12/18 02/12/18 07:01 07:31 07:46 Temperature 98.3 F Pulse Rate 53 54 Respiratory 24 24 Rate Blood Pressure 119/54 133/61 (mmHg) O2 Sat by Pulse 92 92 Oximetry 02/12/18 02/12/18 02/12/18 08:00 09:00 09:36 Temperature Pulse Rate 53 51 56 Respiratory 24 25 26 Rate Blood Pressure 131/51 (mmHg) O2 Sat by Pulse 94 93 95 Oximetry 02/12/18 02/12/18 02/12/18 10:00 10:31 11:00 Temperature Pulse Rate 57 54 Respiratory 17 25 18 Rate Blood Pressure 123/61 (mmHg) O2 Sat by Pulse 93 94 Oximetry Oxygen Devices in Use Now: Nasal Cannula Appearance: Elderly obese lady lying in bed in NAD. Eyes: No Scleral Icterus Ears/Nose/Mouth/Throat: Mucous Membranes Moist Neck: Trachea Midline Respiratory: Symmetrical Chest Expansion and Respiratory Effort, Clear to Auscultation Cardiovascular: RRR - Normal S1 and S2 Neurological: - - Sedated, but arousable to voice and able to answer questions. Has difficulty following commands andmoved her left side in unpredicatble manner Result Diagrams: 02/12/18 07:59 02/12/18 07:59 Assess/Plan/Problems-Billing Assessment: Mrs Gutiérrez is a 73 yo F with PMH of remote TBI, obesity, HTN, who presented to ED with c/o chest pain, found to have NSTEMI, complicated by delirium. - Patient Problems (1) Delirium Comment: - Multifactorial in the setting of NSTEMI, Versed/Fentanyl use, and ICU stay in a patient with known TBI. - CT and MRI brain showed no acute lesions. - Neurology consult appreciated - EEG showed left temporal sharp waves that may represent subclinical seizures - continue Keppra. - Titrate Precedex down. (2) NSTEMI (non-ST elevated myocardial infarction) Comment: - S/p cardiac cath 02/10/18 - LAD 100% occluded with extensive collaterals, 95% 1st diagonal s/p ORION. - Continue Aspirin, Plavix, Atorvastatin, and Metoprolol via NGT. (3) HTN (hypertension) Comment: - Controlled. - Continue Metoprolol. (4) Fever Comment: - Had only one episode T 100.6 - UA was negative and CxR showed atelectasis. - D/c antibiotics. (5) DVT prophylaxis Comment: - SQ heparin. (6) Full code status Status and Disposition: Inpatient. Continue to monitor in ICU.
[2018-02-12] MEDS ORDERED: levETIRAcetam LIQ* 500 MG/5 ML UDC NG TUBE SCH (14:00)
[2018-02-12] MEDS ORDERED: NS 0.9% 1000 ML* 1,000 ML IV SCH ×2 (14:45→23:59)
[2018-02-12] MEDS: Atorvastatin* 40 MG TAB PO SCH (16:20)
[2018-02-12] MEDS ORDERED: Ondansetron INJ* 2 MG/ML VIAL IV PRN (16:21)
[2018-02-12] MEDS ORDERED: Ondansetron INJ* 2 MG/ML VIAL ONE (16:25)
[2018-02-12] MEDS: Nitro Patch/OINT Remove TOPICAL SCH (17:45)
[2018-02-12] MEDS: PROCHLORPERAZINE INJ 5 MG/ML 2 ML VIAL IV PRN (19:44)
[2018-02-13] MEDS ORDERED: Albuterol 2.5 MG/3 ML NEB.SOL* (0.083%) INH ONE (00:48)
[2018-02-13] MEDS ORDERED: Albuterol 2.5 MG/3 ML NEB.SOL* (0.083%) INH PRN (00:50)
[2018-02-13] MEDS: Dexmedetomidine* 400 MCG in NS 0.9% 100 ML* 96 ML IVPB SCH (04:21)
[2018-02-13] MEDS: PROCHLORPERAZINE INJ 5 MG/ML 2 ML VIAL IV PRN (06:45)
[2018-02-13] MEDS: Polyethylene Glycol 3350* 17 GM PACKET NG TUBE SCH (07:26)
[2018-02-13] MEDS: Clopidogrel TAB* 75 MG PO SCH (07:26)
[2018-02-13] MEDS: Metoprolol Tartrate TAB* 25 MG PO SCH ×2 (07:27→20:54)
[2018-02-13] MEDS: Heparin VIAL(*) 5000 UNITS/ML VIAL (FIVE THOUSAND) SUBCUT SCH ×3 (07:27→20:54)
[2018-02-13] MEDS: Aspirin EC TAB* 81 MG TAB.EC SCH (07:27)
[2018-02-13] MEDS: Aspirin EC TAB* 81 MG TAB.EC PO SCH (09:20)
--- NOTE | 2018-02-13 11:39 | PN ---
PROGRESS NOTE: DATE OF SERVICE: 02/12/2018. PATIENT OF: Dr. Domingo. HISTORY: This is a 73-year-old woman seen in followup for her left-sided symptoms and change in mental status. She has been intermittently agitated and requiring sedation again for her MRI scan. However, when she is agitated, she is moving all extremities with power. There is still some question of possible left hand or arm weakness but it is not clear and it has been hard for people to assess at those times. Currently, she is status post sedation. MEDICATIONS: Her medications remain: 1. Keppra 500 mg b.i.d. 2. Ventolin inhaler p.r.n. 3. Aspirin 325 mg daily. 4. Lipitor. 5. Dulcolax. 6. BuSpar 12.5 b.i.d. 7. Kefzol. 8. Ceftriaxone. PHYSICAL EXAMINATION: Vital signs include blood pressure 132/71, pulse 54, respirations 22, temperature 98. She is sedated but when the family speaks to her, she can follow some simple commands and will have a brief conversation, saying things like "hi doctor." She can move both sides with power including her left arm to some degree. It is still not clear since she is quite sedated how much of an asymmetry there is. Chest: Clear. Cardiovascular: Regular rate and rhythm. Abdomen: Soft. DIAGNOSTIC STUDIES: I reviewed her MRI scan, which showed no acute stroke or tumor. There was some small vessel ischemic disease. I discussed with the family and Dr. Domingo that there has been no acute stroke. Her course is suggestive that she may have had some focal ischemia consistent with a TIA. We are going to discontinue her Keppra now as the Keppra may be contributing to her agitation and it is unlikely that she will have ongoing seizures at this point and even in that event she will be in the hospital for the time being. I will continue to follow for now. Thank you for sharing her case. [id number]/[facility] #: [id number] JOEL
[2018-02-13] MEDS ORDERED: Metoprolol Tartrate TAB* 25 MG PO ONE (14:04)
--- NOTE | 2018-02-13 14:04 | PN ---
Subjective Date of Service: 02/13/18 Interval History: HOSPITALIST PROGRESS NOTE Patient seen and examined at bedside. Care reviewed and d/w Andree Hopper RN. She's more awake and lucid today. Still a little confused, but can be redirectioned. C/o hunger. Denies CP, palpitations, or dyspnea. Family History: Unchanged from Admission Social History: Unchanged from Admission Past Medical History: Unchanged from Admission Objective Active Medications: Albuterol (Ventolin 2.5 Mg/3 Ml Neb.Chuyita*) 2.5 mg INH Q4H PRN PRN Reason: WHEEZING/SOB Aspirin (Aspirin Ec Tab*) 81 mg PO DAILY [facility] Last Admin: 02/13/18 09:20 Dose: Not Given Atorvastatin Calcium (Lipitor*) 40 mg PO 1700 [facility] Last Admin: 02/12/18 16:20 Dose: 40 mg Clopidogrel Bisulfate (Plavix Tab*) 75 mg PO DAILY [facility] Last Admin: 02/13/18 07:26 Dose: 75 mg Heparin Sodium (Porcine) (Heparin Vial(*)) 5,000 units SUBCUT Q8HR [facility] Last Admin: 02/13/18 07:27 Dose: 5,000 units Metoprolol Tartrate (Lopressor Tab*) 12.5 mg PO BID [facility] Last Admin: 02/13/18 07:27 Dose: 12.5 mg Nitroglycerin (Nitroglycerin Tab 0.4 Mg*) 0.4 mg SL Q5M PRN PRN Reason: ANGINA Ondansetron HCl (Zofran Inj*) 4 mg IV Q6H PRN PRN Reason: NAUSEA Last Admin: 02/12/18 16:27 Dose: 4 mg Polyethylene Glycol/Electrolytes (Miralax*) 17 gm NG TUBE 0800,2100 [facility] Last Admin: 02/13/18 07:26 Dose: 17 gm Prochlorperazine Edisylate (Compazine Inj*) 5 mg IV Q6H PRN PRN Reason: NAUSEA Last Admin: 02/13/18 06:45 Dose: 5 mg Vital Signs - 8 hr 02/13/18 02/13/18 02/13/18 06:00 06:14 07:00 Temperature Pulse Rate 82 Respiratory 32 18 27 Rate Blood Pressure 163/83 (mmHg) O2 Sat by Pulse 94 Oximetry 02/13/18 02/13/18 02/13/18 07:01 07:53 08:00 Temperature 99.7 F Pulse Rate 79 74 Respiratory 23 25 Rate Blood Pressure 181/84 (mmHg) O2 Sat by Pulse 94 94 Oximetry 02/13/18 02/13/18 02/13/18 08:01 09:00 09:38 Temperature Pulse Rate 76 76 Respiratory 31 32 25 Rate Blood Pressure 189/82 161/81 (mmHg) O2 Sat by Pulse 94 94 Oximetry 02/13/18 02/13/18 02/13/18 10:00 10:01 11:00 Temperature Pulse Rate 75 73 Respiratory 17 20 17 Rate Blood Pressure 185/81 (mmHg) O2 Sat by Pulse 94 95 Oximetry 02/13/18 02/13/18 02/13/18 11:10 12:00 12:01 Temperature Pulse Rate 74 79 78 Respiratory 27 25 26 Rate Blood Pressure 169/122 180/80 (mmHg) O2 Sat by Pulse 95 92 93 Oximetry Oxygen Devices in Use Now: Nasal Cannula Appearance: Elderly lady sitting up in bed in NAD Eyes: No Scleral Icterus Ears/Nose/Mouth/Throat: Mucous Membranes Moist Neck: Trachea Midline Respiratory: Symmetrical Chest Expansion and Respiratory Effort, Clear to Auscultation Cardiovascular: RRR - Normal S1 and S2 Abdominal: NL Sounds; No Tenderness; No Distention Neurological: - - AAOx1 (self only), RACHEL Result Diagrams: 02/12/18 07:59 02/12/18 07:59 Assess/Plan/Problems-Billing Assessment: Mrs Gutiérrez is a 73 yo F with PMH of remote TBI, obesity, HTN, who presented to ED with c/o chest pain, found to have NSTEMI, complicated by delirium. - Patient Problems (1) Delirium Comment: - Multifactorial encephalopathy in the setting of NSTEMI, Versed/ Fentanyl use, and ICU stay in a patient with known TBI - improving. - CT and MRI brain showed no acute lesions. - Neurology consult appreciated - EEG showed left temporal sharp waves that could represent subclinical seizures - d/w Neuro - recommended d/c Keppra as it can affect her mood. - Off Precedex. - D/c NGT, resume diet and PO meds. (2) NSTEMI (non-ST elevated myocardial infarction) Comment: - S/p cardiac cath 02/10/18 - LAD 100% occluded with extensive collaterals, 95% 1st diagonal s/p ORION. - Continue Aspirin, Plavix, Atorvastatin, and Metoprolol. (3) HTN (hypertension) Comment: - Trending up. - Increase Metoprolol and resume Lisinopril. (4) DVT prophylaxis Comment: - SQ heparin. (5) Full code status Status and Disposition: Inpatient.
[2018-02-13] MEDS: Lisinopril TAB* 10 MG PO SCH (14:29)
[2018-02-13] MEDS: Atorvastatin* 40 MG TAB PO SCH (19:21)
[2018-02-14] MEDS ORDERED: Melatonin 3 MG TAB PO ONE (04:15)
[2018-02-14] MEDS ORDERED: QUEtiapine TAB* 25 MG PO ONE (04:15)
[2018-02-14] MEDS: Heparin VIAL(*) 5000 UNITS/ML VIAL (FIVE THOUSAND) SUBCUT SCH ×3 (06:28→22:49)
--- NOTE | 2018-02-14 07:11 | PN ---
PROGRESS NOTE: DATE OF VISIT: 02/13/2018. PATIENT OF: Dr. Domingo and Dr. Navarrete.* HISTORY: This is a 73-year-old woman I am seeing in followup. She has no complaints now in terms of numbness, weakness, or visual symptoms. She is completely conversant. Her family feels she is back to her baseline and she has mild cognitive issues. She is off her Keppra. MEDICATIONS: 1. Albuterol. 2. Aspirin. 3. Lipitor. 4. BuSpar. 5. Plavix. 6. Lisinopril. 7. Metoprolol 8. Her p.r.n. medications. PHYSICAL EXAMINATION: Temperature 98.8, pulse 84, respiratory rate 26, blood pressure 182/102. She is alert and oriented. Cranial nerves II through XII are intact. She had no visual field deficits today, and represents resolution of her prior symptoms. She moved all extremities with power. Chest: Clear. Cardiovascular: Regular rate and rhythm. Abdomen: Soft with positive bowel sounds. IMPRESSION AND PLAN: Angelina had agitation and sedation, some of which could have been secondary to the medication. She had some focal symptoms that have now completely resolved and she may have had a transient ischemic attack and her MRI scan is negative. I have no further recommendations or evaluations for her. Thank you for sharing her case. [id number]/[facility] #: [id number] JOEL
[2018-02-14] MEDS: Polyethylene Glycol 3350* 17 GM PACKET PO SCH (09:40)
[2018-02-14] MEDS: Clopidogrel TAB* 75 MG PO SCH (09:40)
[2018-02-14] MEDS: Aspirin EC TAB* 81 MG TAB.EC PO SCH (09:41)
[2018-02-14] MEDS: busPIRone TAB* 15 MG PO SCH ×2 (09:41→20:02)
[2018-02-14] MEDS: Metoprolol Tartrate TAB* 25 MG PO SCH ×2 (09:41→20:02)
[2018-02-14] MEDS: Lisinopril TAB* 10 MG PO SCH (09:42)
[2018-02-14] MEDS: amLODIPine TAB* 5 MG PO SCH (11:28)
--- NOTE | 2018-02-14 16:48 | PN ---
Subjective Date of Service: 02/14/18 Interval History: HOSPITALIST PROGRESS NOTE Patient seen and examined at bedside. Care reviewed and d/w Kayla Vega RN. She is more oriented today. "I came in because I had a heart attack". Denies chest pain, dyspnea, palpitations. Behavior is still a little child like and impulsive. Family History: Unchanged from Admission Social History: Unchanged from Admission Past Medical History: Unchanged from Admission Objective Active Medications: Albuterol (Ventolin 2.5 Mg/3 Ml Neb.Chuyita*) 2.5 mg INH Q4H PRN PRN Reason: WHEEZING/SOB Amlodipine Besylate (Norvasc Tab*) 5 mg PO DAILY [facility] Last Admin: 02/14/18 11:28 Dose: 5 mg Aspirin (Aspirin Ec Tab*) 81 mg PO DAILY [facility] Last Admin: 02/14/18 09:41 Dose: 81 mg Atorvastatin Calcium (Lipitor*) 40 mg PO 1700 [facility] Last Admin: 02/13/18 19:21 Dose: 40 mg Buspirone HCl (Buspar Tab *) 15 mg PO BID [facility] Last Admin: 02/14/18 09:41 Dose: 15 mg Clopidogrel Bisulfate (Plavix Tab*) 75 mg PO DAILY [facility] Last Admin: 02/14/18 09:40 Dose: 75 mg Heparin Sodium (Porcine) (Heparin Vial(*)) 5,000 units SUBCUT Q8HR [facility] Last Admin: 02/14/18 13:12 Dose: 5,000 units Lisinopril (Prinivil Tab*) 20 mg PO DAILY [facility] Last Admin: 02/14/18 09:42 Dose: 20 mg Metoprolol Tartrate (Lopressor Tab*) 25 mg PO BID [facility] Last Admin: 02/14/18 09:41 Dose: 25 mg Nitroglycerin (Nitroglycerin Tab 0.4 Mg*) 0.4 mg SL Q5M PRN PRN Reason: ANGINA Ondansetron HCl (Zofran Inj*) 4 mg IV Q6H PRN PRN Reason: NAUSEA Last Admin: 02/12/18 16:27 Dose: 4 mg Polyethylene Glycol/Electrolytes (Miralax*) 17 gm PO DAILY [facility] Last Admin: 02/14/18 09:40 Dose: 17 gm Prochlorperazine Edisylate (Compazine Inj*) 5 mg IV Q6H PRN PRN Reason: NAUSEA Last Admin: 02/13/18 06:45 Dose: 5 mg Vital Signs - 8 hr 02/14/18 11:58 Temperature 98.5 F Pulse Rate 66 Respiratory 16 Rate Blood Pressure 154/70 (mmHg) O2 Sat by Pulse 94 Oximetry Oxygen Devices in Use Now: None Appearance: Obese lady sitting up in bed in NAD. Eyes: No Scleral Icterus Ears/Nose/Mouth/Throat: Mucous Membranes Moist Neck: Trachea Midline Respiratory: Symmetrical Chest Expansion and Respiratory Effort, Clear to Auscultation Cardiovascular: RRR - Normal S1 and S2 Neurological: Alert and Oriented x 3, NL Muscle Strength and Tone Result Diagrams: 02/12/18 07:59 02/12/18 07:59 Assess/Plan/Problems-Billing Assessment: Mrs Gutiérrez is a 73 yo F with PMH of remote TBI, obesity, HTN, who presented to ED with c/o chest pain, found to have NSTEMI, complicated by delirium. - Patient Problems (1) Delirium Comment: - Multifactorial encephalopathy in the setting of NSTEMI, Versed/ Fentanyl use, and ICU stay in a patient with known TBI - improving. - CT and MRI brain showed no acute lesions. - Neurology consult appreciated - EEG showed left temporal sharp waves that could represent subclinical seizures - d/w Neuro - recommended d/c Keppra as it can affect her mood. - Off Precedex. - Will start low dose Risperdal at bedtime, as I suspect a component of ing too. (2) NSTEMI (non-ST elevated myocardial infarction) Comment: - S/p cardiac cath 02/10/18 - LAD 100% occluded with extensive collaterals, 95% 1st diagonal s/p ORION. - Continue Aspirin, Plavix, Atorvastatin, and Metoprolol. (3) HTN (hypertension) Comment: - Trending up. - Continue Metoprolol, Lisinopril, and add Amlodipine. (4) DVT prophylaxis Comment: - SQ heparin. (5) Full code status Status and Disposition: Inpatient.
[2018-02-14] MEDS: Atorvastatin* 40 MG TAB PO SCH (17:54)
[2018-02-14] MEDS: Melatonin 3 MG TAB PO PRN (20:02)
[2018-02-14] MEDS: QUEtiapine TAB* 25 MG PO SCH (20:02)
[2018-02-15] MEDS ORDERED: QUEtiapine TAB* 25 MG PO ONE (04:30)
[2018-02-15] MEDS: Heparin VIAL(*) 5000 UNITS/ML VIAL (FIVE THOUSAND) SUBCUT SCH ×3 (05:00→20:51)
[2018-02-15] MEDS: amLODIPine TAB* 5 MG PO SCH (08:46)
[2018-02-15] MEDS: Polyethylene Glycol 3350* 17 GM PACKET PO SCH (08:46)
[2018-02-15] MEDS: Metoprolol Tartrate TAB* 25 MG PO SCH ×2 (08:46→20:49)
[2018-02-15] MEDS: Lisinopril TAB* 10 MG PO SCH (08:47)
[2018-02-15] MEDS: Aspirin EC TAB* 81 MG TAB.EC PO SCH (08:47)
[2018-02-15] MEDS: busPIRone TAB* 15 MG PO SCH ×2 (08:47→20:49)
[2018-02-15] MEDS: Clopidogrel TAB* 75 MG PO SCH (08:47)
--- NOTE | 2018-02-15 15:36 | PN ---
Subjective Date of Service: 02/15/18 Interval History: HOSPITALIST PROGRESS NOTE Patient seen and examined at bedside. Care reviewed and d/w Lisa Amaya RN. Her confusion seems to be clearing little by little everyday, but still hallucinating, seeing bugs and cats around the floor. Did not sleep well last night despite Seroquel. Family History: Unchanged from Admission Social History: Unchanged from Admission Past Medical History: Unchanged from Admission Objective Active Medications: Albuterol (Ventolin 2.5 Mg/3 Ml Neb.Chuyita*) 2.5 mg INH Q4H PRN PRN Reason: WHEEZING/SOB Amlodipine Besylate (Norvasc Tab*) 5 mg PO DAILY [facility] Last Admin: 02/15/18 08:46 Dose: 5 mg Aspirin (Aspirin Ec Tab*) 81 mg PO DAILY [facility] Last Admin: 02/15/18 08:47 Dose: 81 mg Atorvastatin Calcium (Lipitor*) 40 mg PO 1700 [facility] Last Admin: 02/14/18 17:54 Dose: 40 mg Buspirone HCl (Buspar Tab *) 15 mg PO BID [facility] Last Admin: 02/15/18 08:47 Dose: 15 mg Clopidogrel Bisulfate (Plavix Tab*) 75 mg PO DAILY [facility] Last Admin: 02/15/18 08:47 Dose: 75 mg Heparin Sodium (Porcine) (Heparin Vial(*)) 5,000 units SUBCUT Q8HR [facility] Last Admin: 02/15/18 14:10 Dose: 5,000 units Lisinopril (Prinivil Tab*) 40 mg PO DAILY [facility] Last Admin: 02/15/18 08:47 Dose: 40 mg Melatonin (Melatonin) 3 mg PO BEDTIME PRN; Protocol PRN Reason: SLEEP Last Admin: 02/14/18 20:02 Dose: 3 mg Metoprolol Tartrate (Lopressor Tab*) 25 mg PO BID [facility] Last Admin: 02/15/18 08:46 Dose: 25 mg Nitroglycerin (Nitroglycerin Tab 0.4 Mg*) 0.4 mg SL Q5M PRN PRN Reason: ANGINA Ondansetron HCl (Zofran Inj*) 4 mg IV Q6H PRN PRN Reason: NAUSEA Last Admin: 02/12/18 16:27 Dose: 4 mg Polyethylene Glycol/Electrolytes (Miralax*) 17 gm PO DAILY [facility] Last Admin: 02/15/18 08:46 Dose: 17 gm Prochlorperazine Edisylate (Compazine Inj*) 5 mg IV Q6H PRN PRN Reason: NAUSEA Last Admin: 02/13/18 06:45 Dose: 5 mg Quetiapine Fumarate (Seroquel Tab*) 25 mg PO BEDTIME [facility] Last Admin: 02/14/18 20:02 Dose: 25 mg Vital Signs - 8 hr 02/15/18 02/15/18 02/15/18 08:00 08:37 11:40 Temperature 98.0 F 97.8 F Pulse Rate 111 81 Respiratory 16 16 24 Rate Blood Pressure 155/88 153/80 (mmHg) O2 Sat by Pulse 98 95 Oximetry Oxygen Devices in Use Now: None Appearance: Elderly lady sitting up in bed in NAD. Eyes: No Scleral Icterus Ears/Nose/Mouth/Throat: Mucous Membranes Moist Neck: Trachea Midline Respiratory: Symmetrical Chest Expansion and Respiratory Effort, Clear to Auscultation Cardiovascular: RRR - Normal S1 and S2 Neurological: - - AAOx2 (self and place), RACHEL Result Diagrams: 02/12/18 07:59 02/12/18 07:59 Assess/Plan/Problems-Billing Assessment: Mrs Gutiérrez is a 73 yo F with PMH of remote TBI, obesity, HTN, who presented to ED with c/o chest pain, found to have NSTEMI, complicated by delirium. - Patient Problems (1) SIRS (systemic inflammatory response syndrome) Comment: - Patient meets SIRS criteria with tachycardia and minimal leukocytosis 12.1. No overt signs of infection at this time. - Will continue to monitor. (2) Delirium Comment: - Multifactorial encephalopathy in the setting of NSTEMI, Versed/ Fentanyl use, and ICU stay in a patient with known TBI - improving slowly. - CT and MRI brain showed no acute lesions. - Neurology consult appreciated - EEG showed left temporal sharp waves - at this point recommended d/c Keppra as it can affect her mood. - Off Precedex. - Continue bedtime Seroquel. - Avoid benzos. (3) NSTEMI (non-ST elevated myocardial infarction) Comment: - S/p cardiac cath 02/10/18 - LAD 100% occluded with extensive collaterals, 95% 1st diagonal s/p ORION. - Continue Aspirin, Plavix, Atorvastatin, and Metoprolol. (4) HTN (hypertension) Comment: - Trending up. - Continue Metoprolol, Lisinopril, and increase Amlodipine. (5) DVT prophylaxis Comment: - SQ heparin. (6) Full code status Status and Disposition: Inpatient.
[2018-02-15] MEDS ORDERED: amLODIPine TAB* 5 MG PO ONE (15:37)
[2018-02-15] MEDS: Atorvastatin* 40 MG TAB PO SCH (16:45)
[2018-02-15] MEDS: QUEtiapine TAB* 25 MG PO SCH (20:49)
[2018-02-15] MEDS: Melatonin 3 MG TAB PO PRN (20:49)
[2018-02-15] MEDS ORDERED: Ziprasidone IM INJ* 20 MG/ML VIAL IM ONE (23:00)
[2018-02-16 05:26] LABS: ABS Basophils 0.1 10^3/ul (0-0.2); ABS Eosinophils 0.2 10^3/ul (0-0.6); ABS Lymphocytes 2.2 10^3/ul (1.0-4.8); ABS Monocytes 1.3 10^3/ul (0-0.8); ABS Nucleated RBC 0 10^3/ul; Eosinophil % 1.7 % (0-6); Hematocrit 39 % (35-47); Hemoglobin 13.4 g/dl (12.0-16.0); Mean Corpuscular HGB Conc 35 g/dl (31-36); Mean Corpuscular Hemoglobin 30 pg (27-31); Mean Corpuscular Volume 87 fL (80-97); Mean Platelet Volume 8.8 um3 (7.4-10.4); Nucleated Red Blood Cells % 0.1; Platelet Count 230 10^3/ul (150-450); Red Blood Count 4.42 10^6/ul (4.00-5.40); Red Cell Distribution Width 14 % (10.5-15); White Blood Count 12.7 10^3/ul (3.5-10.8)
[2018-02-16] MEDS: Heparin VIAL(*) 5000 UNITS/ML VIAL (FIVE THOUSAND) SUBCUT SCH ×3 (05:26→21:04)
[2018-02-16 05:49] LABS: EGFR Non-African American 94.1 (>60)
[2018-02-16] MEDS: Polyethylene Glycol 3350* 17 GM PACKET PO SCH (08:27)
[2018-02-16] MEDS: Lisinopril TAB* 10 MG PO SCH (08:28)
[2018-02-16] MEDS: busPIRone TAB* 15 MG PO SCH ×2 (08:29→21:04)
[2018-02-16] MEDS: Aspirin EC TAB* 81 MG TAB.EC PO SCH (08:29)
[2018-02-16] MEDS: Clopidogrel TAB* 75 MG PO SCH (08:29)
[2018-02-16] MEDS: Metoprolol Tartrate TAB* 25 MG PO SCH ×2 (08:30→21:04)
[2018-02-16] MEDS: amLODIPine TAB* 5 MG PO SCH (08:30)
--- NOTE | 2018-02-16 11:43 | PN ---
Subjective Date of Service: 02/16/18 Interval History: Pt is feeling ok. She had sat herself up in bed and fell backwards after she lost her balance and hit the back of her head on the arm rail. Her family states that she is about 50% back to normal. She is still hallucinating from time to time. She tells me while I am in the room that there are bugs crawling down the wall. She states it is 1980 and that she is in [place]. Her family says it is not too uncommon that she thinks it is 1980 and she is in [place] as that is when/where she was treated for her TBI. She still is unable to recognize her grandson. Objective Active Medications: Albuterol (Ventolin 2.5 Mg/3 Ml Neb.Chuyita*) 2.5 mg INH Q4H PRN PRN Reason: WHEEZING/SOB Amlodipine Besylate (Norvasc Tab*) 10 mg PO DAILY [facility] Last Admin: 02/16/18 08:30 Dose: 10 mg Aspirin (Aspirin Ec Tab*) 81 mg PO DAILY [facility] Last Admin: 02/16/18 08:29 Dose: 81 mg Atorvastatin Calcium (Lipitor*) 40 mg PO 1700 [facility] Last Admin: 02/15/18 16:45 Dose: 40 mg Buspirone HCl (Buspar Tab *) 15 mg PO BID [facility] Last Admin: 02/16/18 08:29 Dose: 15 mg Clopidogrel Bisulfate (Plavix Tab*) 75 mg PO DAILY [facility] Last Admin: 02/16/18 08:29 Dose: 75 mg Heparin Sodium (Porcine) (Heparin Vial(*)) 5,000 units SUBCUT Q8HR [facility] Last Admin: 02/16/18 05:26 Dose: 5,000 units Lisinopril (Prinivil Tab*) 40 mg PO DAILY [facility] Last Admin: 02/16/18 08:28 Dose: 40 mg Melatonin (Melatonin) 3 mg PO BEDTIME PRN; Protocol PRN Reason: SLEEP Last Admin: 02/15/18 20:49 Dose: 3 mg Metoprolol Tartrate (Lopressor Tab*) 25 mg PO BID [facility] Last Admin: 02/16/18 08:30 Dose: 25 mg Nitroglycerin (Nitroglycerin Tab 0.4 Mg*) 0.4 mg SL Q5M PRN PRN Reason: ANGINA Ondansetron HCl (Zofran Inj*) 4 mg IV Q6H PRN PRN Reason: NAUSEA Last Admin: 02/12/18 16:27 Dose: 4 mg Polyethylene Glycol/Electrolytes (Miralax*) 17 gm PO DAILY [facility] Last Admin: 02/16/18 08:27 Dose: 17 gm Prochlorperazine Edisylate (Compazine Inj*) 5 mg IV Q6H PRN PRN Reason: NAUSEA Last Admin: 02/13/18 06:45 Dose: 5 mg Quetiapine Fumarate (Seroquel Tab*) 25 mg PO BEDTIME [facility] Last Admin: 02/15/18 20:49 Dose: 25 mg Vital Signs - 8 hr 02/16/18 02/16/18 02/16/18 04:18 04:20 05:55 Temperature 97.8 F 97.8 F Pulse Rate 95 95 90 Respiratory 18 18 18 Rate Blood Pressure 150/70 150/70 142/68 (mmHg) O2 Sat by Pulse 95 95 94 Oximetry 02/16/18 08:00 Temperature Pulse Rate Respiratory 18 Rate Blood Pressure (mmHg) O2 Sat by Pulse Oximetry Oxygen Devices in Use Now: None Appearance: Elderly female sitting up in a chair, NAD Eyes: No Scleral Icterus Ears/Nose/Mouth/Throat: Mucous Membranes Moist Respiratory: Symmetrical Chest Expansion and Respiratory Effort, Clear to Auscultation Cardiovascular: NL Sounds; No Murmurs; No JVD, RRR, No Edema Abdominal: NL Sounds; No Tenderness; No Distention Extremities: No Clubbing, Cyanosis Skin: No Nodules or Sclerosis Neurological: - - confused to year, day of the week, city, acts slightly childish at times Result Diagrams: 02/16/18 04:58 02/16/18 04:58 Assess/Plan/Problems-Billing Mrs Gutiérrez is a 73 yo F with PMHx of remote TBI, obesity, HTN, who presented to ED with c/o chest pain, found to have NSTEMI, complicated by delirium. - Patient Problems (1) Delirium Current Visit: Yes Status: Acute Code(s): R41.0 - DISORIENTATION, UNSPECIFIED SNOMED Code(s): 8766846 Comment: Multifactorial encephalopathy in the setting of NSTEMI, Versed/ Fentanyl use, and ICU stay in a patient with known TBI. Her Brother in Law states she is slightly better again today but only about 50% back to baseline. CT and MRI brain showed no acute lesions. Neurology saw the patient, EEG done and showed left temporal sharp waves but no clear evidence of seizures. Was started on keppra but subsequently stopped as it could affect her mood. Avoid benzos and continue seroquel at bedtime. Will need to determine how much better she needs to be to go home and what help she will need. (2) NSTEMI (non-ST elevated myocardial infarction) Current Visit: Yes Status: Acute Code(s): I21.4 - NON-ST ELEVATION (NSTEMI) MYOCARDIAL INFARCTION SNOMED Code(s): 652400861 Comment: Pt is s/p cardiac cath 02/10/18 - LAD 100% occluded with extensive collaterals, 95% 1st diagonal s/p ORION. Continue Aspirin, Plavix, Atorvastatin, and Metoprolol. No c/o chest pain today. Will get pt up and moving more today. PT to re-eval the patient tomorrow. (3) HTN (hypertension) Current Visit: Yes Status: Acute Code(s): I10 - ESSENTIAL (PRIMARY) HYPERTENSION SNOMED Code(s): 41620902 Comment: BP remains moderately elevated. Add hydralazine 10mg BID and continue other medications. (4) DVT prophylaxis Current Visit: Yes Status: Acute Code(s): HXQ1720 - SNOMED Code(s): 278723776 Comment: SQ heparin. (5) Full code status Current Visit: Yes Status: Acute Code(s): Z78.9 - OTHER SPECIFIED HEALTH STATUS SNOMED Code(s): 352517339 Status and Disposition: .
[2018-02-16] MEDS: hydrALAZINE TAB* 10 MG PO SCH ×2 (12:39→21:04)
[2018-02-16] MEDS ORDERED: Ondansetron ODT TAB* 4 MG SL PRN (15:36)
[2018-02-16] MEDS: Atorvastatin* 40 MG TAB PO SCH (17:05)
[2018-02-16] MEDS ORDERED: Pneumococcal *Vac Polyvalent 0.5 ML VIAL IM ONE (18:00)
[2018-02-16] MEDS ORDERED: Zolpidem TAB* 5 MG PO PRN (19:46)
[2018-02-16] MEDS: QUEtiapine TAB* 25 MG PO SCH (21:04)
[2018-02-16] MEDS: Melatonin 3 MG TAB PO PRN (21:07)
[2018-02-17] MEDS: Heparin VIAL(*) 5000 UNITS/ML VIAL (FIVE THOUSAND) SUBCUT SCH ×2 (05:24→14:19)
--- NOTE | 2018-02-17 07:37 | PN ---
Subjective Date of Service: 02/17/18 Interval History: Pt is sleepy currently. Last night she received a dose of ambien and has slept well. She wakes up and is able to answer some basic questions but she does not carry on a full conversation. She denies any pain or SOB. She is able to state we are at a hospital but she thinks she is in [place] (her prior home town). Objective Active Medications: Albuterol (Ventolin 2.5 Mg/3 Ml Neb.Chuyita*) 2.5 mg INH Q4H PRN PRN Reason: WHEEZING/SOB Amlodipine Besylate (Norvasc Tab*) 10 mg PO DAILY [facility] Last Admin: 02/16/18 08:30 Dose: 10 mg Aspirin (Aspirin Ec Tab*) 81 mg PO DAILY [facility] Last Admin: 02/16/18 08:29 Dose: 81 mg Atorvastatin Calcium (Lipitor*) 40 mg PO 1700 [facility] Last Admin: 02/16/18 17:05 Dose: 40 mg Buspirone HCl (Buspar Tab *) 15 mg PO BID [facility] Last Admin: 02/16/18 21:04 Dose: 15 mg Clopidogrel Bisulfate (Plavix Tab*) 75 mg PO DAILY [facility] Last Admin: 02/16/18 08:29 Dose: 75 mg Heparin Sodium (Porcine) (Heparin Vial(*)) 5,000 units SUBCUT Q8HR [facility] Last Admin: 02/17/18 05:24 Dose: 5,000 units Hydralazine HCl (Apresoline Tab*) 10 mg PO BID [facility] Last Admin: 02/16/18 21:04 Dose: 10 mg Lisinopril (Prinivil Tab*) 40 mg PO DAILY [facility] Last Admin: 02/16/18 08:28 Dose: 40 mg Melatonin (Melatonin) 3 mg PO BEDTIME PRN; Protocol PRN Reason: SLEEP Last Admin: 02/16/18 21:07 Dose: 3 mg Metoprolol Tartrate (Lopressor Tab*) 25 mg PO BID [facility] Last Admin: 02/16/18 21:04 Dose: 25 mg Nitroglycerin (Nitroglycerin Tab 0.4 Mg*) 0.4 mg SL Q5M PRN PRN Reason: ANGINA Ondansetron HCl (Zofran Odt Tab*) 4 mg SL Q6H PRN PRN Reason: NAUSEA/VOMITING Last Admin: 02/16/18 17:04 Dose: 4 mg Pneumococcal Polyvalent Vaccine (Pneumococcal Vac 23-Polyvalent*) 0.5 ml IM .ONCE ONE Stop: 02/17/18 09:01 Polyethylene Glycol/Electrolytes (Miralax*) 17 gm PO DAILY [facility] Last Admin: 02/16/18 08:27 Dose: 17 gm Prochlorperazine Edisylate (Compazine Inj*) 5 mg IV Q6H PRN PRN Reason: NAUSEA Last Admin: 02/13/18 06:45 Dose: 5 mg Quetiapine Fumarate (Seroquel Tab*) 25 mg PO BEDTIME [facility] Last Admin: 02/16/18 21:04 Dose: 25 mg Zolpidem Tartrate (Ambien Tab*) 5 mg PO BEDTIME PRN PRN Reason: INSOMNIA Last Admin: 02/16/18 21:04 Dose: 5 mg Vital Signs - 8 hr 02/17/18 02/17/18 02/17/18 02:01 02:20 05:29 Temperature 98.1 F Pulse Rate 71 58 75 Respiratory 20 22 Rate Blood Pressure 109/50 109/50 123/56 (mmHg) O2 Sat by Pulse 92 92 90 Oximetry Oxygen Devices in Use Now: None Appearance: Elderly female lying in bed sleeping, wakes up to voice, NAD Eyes: No Scleral Icterus Ears/Nose/Mouth/Throat: Mucous Membranes Moist Respiratory: Symmetrical Chest Expansion and Respiratory Effort, Clear to Auscultation Cardiovascular: NL Sounds; No Murmurs; No JVD, No Edema Abdominal: NL Sounds; No Tenderness; No Distention Extremities: No Clubbing, Cyanosis Skin: No Nodules or Sclerosis Neurological: - - sleepy, confused to place but per family yesterday that is common Result Diagrams: 02/16/18 04:58 02/16/18 04:58 Assess/Plan/Problems-Billing Mrs Gutiérrez is a 73 yo F with PMHx of remote TBI, obesity, HTN, who presented to ED with c/o chest pain, found to have NSTEMI, complicated by delirium. - Patient Problems (1) Delirium Current Visit: Yes Status: Acute Code(s): R41.0 - DISORIENTATION, UNSPECIFIED SNOMED Code(s): 9414211 Comment: Multifactorial encephalopathy in the setting of NSTEMI, Versed/ Fentanyl use, and ICU stay in a patient with known TBI. Pt currently is still quite sleepy likely from the ambien. Will re-evaluate the patient later today to see how her mental status is. Will work with family and case technician to determine appropriate discharge plan. (2) NSTEMI (non-ST elevated myocardial infarction) Current Visit: Yes Status: Acute Code(s): I21.4 - NON-ST ELEVATION (NSTEMI) MYOCARDIAL INFARCTION SNOMED Code(s): 087551770 Comment: Pt is s/p cardiac cath 02/10/18 - LAD 100% occluded with extensive collaterals, 95% 1st diagonal s/p ORION. Continue Aspirin, Plavix, Atorvastatin, and Metoprolol. No c/o chest pain today. Will need cardiology follow up. (3) HTN (hypertension) Current Visit: Yes Status: Acute Code(s): I10 - ESSENTIAL (PRIMARY) HYPERTENSION SNOMED Code(s): 42595918 Comment: BP improved with addition of hydralazine BID. Continue to monitor. (4) DVT prophylaxis Current Visit: Yes Status: Acute Code(s): VRR3741 - SNOMED Code(s): 430137060 Comment: SQ heparin. (5) Full code status Current Visit: Yes Status: Acute Code(s): Z78.9 - OTHER SPECIFIED HEALTH STATUS SNOMED Code(s): 824477496 Status and Disposition: .
[2018-02-17] MEDS ORDERED: Pneumococcal *Vac Polyvalent 0.5 ML VIAL IM ONE (09:00)
[2018-02-17] MEDS: Clopidogrel TAB* 75 MG PO SCH (09:16)
[2018-02-17] MEDS: Metoprolol Tartrate TAB* 25 MG PO SCH (09:16)
[2018-02-17] MEDS: Aspirin EC TAB* 81 MG TAB.EC PO SCH (09:16)
[2018-02-17] MEDS: busPIRone TAB* 15 MG PO SCH (09:17)
[2018-02-17] MEDS: Polyethylene Glycol 3350* 17 GM PACKET PO SCH (09:26)
[2018-02-17] MEDS: Lisinopril TAB* 10 MG PO SCH (12:02)
[2018-02-17] MEDS: amLODIPine TAB* 5 MG PO SCH (12:02)
[2018-02-17 16:08] VITALS: BP 111/49
[2018-02-17] MEDS: Atorvastatin* 40 MG TAB PO SCH (16:45)
--- NOTE | 2018-02-18 10:49 | DS ---
CC: Dr. Liz; Dr. Braga * DISCHARGE SUMMARY: DATE OF ADMISSION: 02/10/18 DATE OF DISCHARGE: 02/17/18 PRIMARY CARE PROVIDER: Dr. Liz. ELECTRIC WIRER: Dr. Braga. PRINCIPAL DIAGNOSES: 1. Non-ST elevation myocardial infarction. 2. Delirium in the setting of Versed/fentanyl use, past traumatic brain injury and myocardial infarction. 3. Hypertension. 4. Hyperlipidemia. DISCHARGE MEDICATIONS: 1. MiraLax 17 g p.o. daily. 2. Lisinopril 40 mg p.o. daily (new dose). 3. BuSpar 15 mg p.o. b.i.d. 4. Amlodipine 5 mg p.o. daily. 5. Ambien 5 mg p.o. q.h.s. p.r.n. insomnia, dispensed 10 tablets. 6. Nitroglycerin 0.4 mg SL q.5 minutes p.r.n. chest pain. 7. Metoprolol tartrate 25 mg p.o. b.i.d. 8. Plavix 75 mg p.o. daily. 9. Aspirin 81 mg p.o. daily. 10. Lipitor 40 mg p.o. q.h.s. HOSPITAL COURSE: Ms. Gutiérrez is a 73-year-old female who presented to the emergency room on 02/09/18 with complaints of chest pain. The patient was found to have an initial troponin of 0.2, trending up to 0.36 with flipped T waves in the anterior lateral leads. The patient was admitted for a presumed non-ST elevation [place]. She underwent transthoracic echocardiogram on the morning of 12/21, which revealed moderately decreased left ventricular systolic function. The EF is estimated to be 35% to 40%. There are multiple regional wall motion abnormalities. The apical anterior wall segment is akinetic. There is no evidence of aortic stenosis. There is trace mitral regurgitation and trace tricuspid regurgitation. Compared to the study of 02/03/18, the wall motion abnormalities were new. The patient was seen in consultation by Dr. Mendoza, who recommended the patient undergo cardiac catheterization. The catheterization revealed the left main to be normal in size and bifurcate into the LAD and circumflex. There was no evidence of stenosis. The LAD was normal in size. It gave off 1 diagonal branch. After the diagonal branch, it was occluded 100% . There was a large septal vfx artist before the occlusion. The first diagonal vessel had a proximal to mid 95% stenosis. The circumflex artery was normal in size. It was a dominant vessel. It gave off the PDA. There were 3 obtuse marginal branches without any evidence of stenosis. The RCA gave off a large RV marginal branch. There was no evidence of stenosis. There was extensive collaterals from the distal right coronary artery to the mid and distal LAD. The patient was then intervened upon by Dr. Navarrete who placed a drug-eluting stent to the first diagonal branch. Post catheterization, the patient was noted to be severely agitated. Multiple security members, nurses, and other staff were required to keep the patient safe and from harming herself. She required initially Precedex infusion. She was seen in consultation by Neurology. Ultimately, it was felt that the patient was suffering from delirium in the setting of having a prior TBI, having recently had Versed and fentanyl for her catheterization, and [place]. It took several days for the patient' s mental status to improve. At the time of discharge, her mental status is still not completely back to baseline, though she is much closer. She does continue to hallucinate that there are bugs crawling down the guerra. She lives with her [id number] who states that at this point she is stable enough and well enough to return home. [facility] referral has been made so the patient has some extra help at home. The patient seemed to sleep best with the addition of Ambien. A prescription for 10 tablets has been sent to the patient's pharmacy. In terms of the patient's blood pressure, this has been somewhat labile during the hospitalization. At times, it has been quite elevated. Adjustments have been made to her antihypertensive regimen. She will be discharged home on lisinopril 40 mg daily, which is an increased dose; amlodipine 5 mg daily and metoprolol 25 mg twice daily, which are new. The patient will need to have close monitoring of her blood pressure. FOLLOWUP CONCERNS: The patient is being discharged home today, 02/17/18. ACTIVITY LEVEL: As tolerated. DIET: Low fat. CONDITION ON DISCHARGE: Stable. The patient has been instructed to follow up with Dr. Liz on 02/21/18 at 10:[address] Braga on 03/05/18 at 11 a.m. TIME SPENT: 35 minutes were spent discharging this patient. [id number]/[facility] #: [id number] JOEL
== END 2018-02-17 17:47 | disposition home health service (06) | DRG 246 ==
LOC: ED 22:16 → MEDTELE 02-10 04:04 → ICU 02-10 15:41 → OBSVTOIN 02-11 07:35 → MEDTELE 02-13 22:59
PROVIDERS: ADMIT Internal Medicine; ATTEND Hospitalist
PROC: 4A023N7 Measurement of Cardiac Sampling and Pressure, Left Heart, Percutaneous Approach (ICD-10-PCS; 2018-02-10)
PROC: B2151ZZ Fluoroscopy of Left Heart using Low Osmolar Contrast (ICD-10-PCS; 2018-02-10)
PROC: B2111ZZ Fluoroscopy of Multiple Coronary Arteries using Low Osmolar Contrast (ICD-10-PCS; 2018-02-10)
PROC: 027034Z Dilation of Coronary Artery, One Artery with Drug-eluting Intraluminal Device, Percutaneous Approach (ICD-10-PCS; principal; 2018-02-11)
PROC: 4A00X4Z Measurement of Central Nervous Electrical Activity, External Approach (ICD-10-PCS; 2018-02-11)
DX: I21.4 Non-ST elevation (NSTEMI) myocardial infarction (principal); G92 Toxic encephalopathy; J98.11 Atelectasis; I25.110 Atherosclerotic heart disease of native coronary artery with unstable angina pectoris; E03.9 Hypothyroidism, unspecified; E78.5 Hyperlipidemia, unspecified; J45.909 Unspecified asthma, uncomplicated; K21.9 Gastro-esophageal reflux disease without esophagitis; M19.042 Primary osteoarthritis, left hand; M19.041 Primary osteoarthritis, right hand; H26.9 Unspecified cataract; G43.909 Migraine, unspecified, not intractable, without status migrainosus; F41.9 Anxiety disorder, unspecified; F32.9 Major depressive disorder, single episode, unspecified; Z96.653 Presence of artificial knee joint, bilateral; I10 Essential (primary) hypertension; R79.89 Other specified abnormal findings of blood chemistry; Z96.641 Presence of right artificial hip joint; M16.12 Unilateral primary osteoarthritis, left hip; E66.01 Morbid (severe) obesity due to excess calories; T40.4X5A Adverse effect of other synthetic narcotics, initial encounter; F03.90 Unspecified dementia, unspecified severity, without behavioral disturbance, psychotic disturbance, mood disturbance, and anxiety; T42.4X5A Adverse effect of benzodiazepines, initial encounter; I08.1 Rheumatic disorders of both mitral and tricuspid valves; R45.1 Restlessness and agitation; R50.9 Fever, unspecified; Z68.36 Body mass index [BMI] 36.0-36.9, adult; Z88.8 Allergy status to other drugs, medicaments and biological substances; Z87.820 Personal history of traumatic brain injury; Z79.82 Long term (current) use of aspirin; I25.2 Old myocardial infarction; Z90.49 Acquired absence of other specified parts of digestive tract; Z82.49 Family history of ischemic heart disease and other diseases of the circulatory system; Z79.02 Long term (current) use of antithrombotics/antiplatelets; Z23 Encounter for immunization; Z78.1 Physical restraint status; Y92.009 Unspecified place in unspecified non-institutional (private) residence as the place of occurrence of the external cause
CPT/HCPCS: 36415; 70450; 70551; 71045; 71275; 80048; 80053; 81003; 82550; 82553; 83735; 83880; 84484; 85025; 85379; 85610; 85730; 90732; 93005; 93306; 93458; 94640; 95816; 99156; 99157; 99284; A9270-GY; C1725; C1769; C1876; C8929; C9600-LD; G8978-GP-CL; G8979-GP-CK; G8987-GO-CI; G8988-GO-CI; G8989-GO-CI; J0456; J0583; J0696; J0780; J1630; J1644; J1650; J2060; J2250; J2270; J2405; J3010; J3486; J3490; Q9967

== ENCOUNTER 2020-02-28 16:19 | Inpatient (IN) ==
[2020-02-28] MEDS ORDERED: NS 0.9% 1000 ml BAG 1,000 ML IV ONE (18:05)
[2020-02-28 18:50] LABS: ABS Lymphocytes 0.3 10^3/ul (1.0-4.8); ABS Monocytes 0.3 10^3/ul (0-0.8); ABS Neutrophils 4.9 10^3/ul (1.5-7.7); Eosinophil % 0.2 %; Hematocrit 38 % (35-47); Hemoglobin 13.1 g/dL (12.0-16.0); Lymphocyte % 4.6 %; Mean Corpuscular HGB Conc 35 g/dL (31-36); Mean Corpuscular Hemoglobin 31 pg (27-31); Mean Corpuscular Volume 89 fL (80-97); Mean Platelet Volume 7.8 fL (7.4-10.4); Nucleated Red Blood Cells % 0.1; Platelet Count 147 10^3/uL (150-450); Red Blood Count 4.21 10^6 /uL (3.70-4.87); Red Cell Distribution Width 12 % (10-15); White Blood Count 5.5 10^3/uL (3.5-10.8)
[2020-02-28 19:09] LABS: ALT 270 U/L (7-52); AST 260 U/L (13-39); Albumin/Globulin Ratio 1.6 (1-3); Alkaline Phosphatase 377 U/L (34-104); Anion Gap 10 mmol/L (2-11); Blood Urea Nitrogen 22 mg/dL (6-24); CO2 Carbon Dioxide 24 mmol/L (22-32); Calcium 8.4 mg/dL (8.6-10.3); Chloride 97 mmol/L (101-111); EGFR African American 75.6 (>60); EGFR Non-African American 62.5 (>60); Globulin 2.5 g/dL (2-4); Glucose 101 mg/dL (70-100); Magnesium 1.7 mg/dL (1.9-2.7); Potassium 3.6 mmol/L (3.5-5.0); Sodium 131 mmol/L (135-145); Total Protein 6.5 g/dL (6.4-8.9)
[2020-02-28] MEDS ORDERED: Ondansetron 4 mg VIAL 2 MG/ML 2 ml VIAL IV ONE ×2 (19:09→21:52)
[2020-02-28 19:13] LABS: Troponin I 0.05 ng/mL (<0.03)
[2020-02-28 20:23] LABS: Urine Appearance Clear; Urine Bilirubin Negative (Negative); Urine Blood 1+ (Negative); Urine Color Yellow; Urine Glucose Negative (Negative); Urine Ketones Negative (Negative); Urine Nitrite Negative (Negative); Urine Protein Negative (Negative); Urine Specific Gravity 1.002 (1.010-1.030); Urine Urobilinogen Negative (Negative)
[2020-02-28 20:27] LABS: Urine Bacteria Absent (Absent); Urine Red Blood Cell Absent (Absent); Urine Squamous Epithelial Cell Present (Absent); Urine White Blood Cell Trace(0-5/hpf) (Absent)
[2020-02-28] MEDS ORDERED: Iohexol 300 (CONTRAST) 10 ML SDV IV ONE (20:47)
[2020-02-28 23:28] LABS: Hepatitis B Surface Antigen Nonreactive (Nonreactive)
[2020-02-28 23:33] LABS: Hepatitis A Ab IgM Negative (Negative)
[2020-02-28 23:34] LABS: Hepatitis B Core IgM Nonreactive (Nonreactive)
[2020-02-28 23:46] LABS: Hepatitis C Antibody Negative (Negative)
[2020-02-28 23:50] LABS: Troponin I 0.05 ng/mL (<0.03)
[2020-02-29] MEDS ORDERED: Ondansetron 4 mg VIAL 2 MG/ML 2 ml VIAL IV PRN (01:06)
[2020-02-29 01:07] LABS: Creatine Kinase 5989 U/L (10-223)
[2020-02-29] MEDS ORDERED: cefTRIAXone 1 gm/50 mL NS BAG 1 GM/50 ML BAG IV ONE (01:19)
[2020-02-29] MEDS ORDERED: NS 0.9% 1000 ml BAG 1,000 ML IV ONE (01:23)
[2020-02-29] MEDS ORDERED: Magnesium Sulfate 2 gm BAG 2 GM/50 ML BAG IVPB ONE (01:26)
[2020-02-29] MEDS: Heparin 5000 UNITS/ML 1 mL VIAL SUBCUT SCH ×3 (05:14→20:04)
[2020-02-29] MEDS: NS 0.9% 1000 ml BAG 1,000 ML IV SCH ×2 (05:14→19:07)
[2020-02-29 07:01] LABS: ABS Lymphocytes 0.3 10^3/ul (1.0-4.8); ABS Monocytes 0.2 10^3/ul (0-0.8); ABS Neutrophils 2.8 10^3/ul (1.5-7.7); Eosinophil % 1.3 %; Hematocrit 34 % (35-47); Hemoglobin 11.7 g/dL (12.0-16.0); Lymphocyte % 8.6 %; Mean Corpuscular HGB Conc 35 g/dL (31-36); Mean Corpuscular Hemoglobin 31 pg (27-31); Mean Corpuscular Volume 90 fL (80-97); Mean Platelet Volume 8.3 fL (7.4-10.4); Platelet Count 123 10^3/uL (150-450); Red Blood Count 3.75 10^6 /uL (3.70-4.87); Red Cell Distribution Width 13 % (10-15); White Blood Count 3.4 10^3/uL (3.5-10.8)
[2020-02-29 07:16] LABS: ALT 223 U/L (7-52); AST 218 U/L (13-39); Albumin 3.3 g/dL (3.2-5.2); Albumin/Globulin Ratio 1.4 (1-3); Alkaline Phosphatase 358 U/L (34-104); Anion Gap 8 mmol/L (2-11); BUN/Creatinine Ratio 19.7 (8-20); Blood Urea Nitrogen 14 mg/dL (6-24); CO2 Carbon Dioxide 23 mmol/L (22-32); Calcium 7.9 mg/dL (8.6-10.3); Chloride 104 mmol/L (101-111); Cholesterol 162 mg/dL; EGFR African American 96.8 (>60); Globulin 2.4 g/dL (2-4); Glucose 97 mg/dL (70-100); HDL Cholesterol 29.3 mg/dL; Indirect Bilirubin 0.7 mg/dL (0.3-1.0); LDL Cholesterol 64 mg/dL; Potassium 3.9 mmol/L (3.5-5.0); Sodium 135 mmol/L (135-145); Total Protein 5.7 g/dL (6.4-8.9); Triglycerides 345 mg/dL
[2020-02-29 07:32] LABS: Creatine Kinase 4734 U/L (10-223)
[2020-02-29 07:34] LABS: Troponin I 0.04 ng/mL (<0.03)
[2020-02-29] MEDS: Aspirin EC 81 mg TAB.EC (enteric coated) PO SCH (08:07)
[2020-02-29] MEDS: Venlafaxine XR 75 mg PO SCH (08:09)
[2020-02-29] MEDS ORDERED: Solifenacin 5 mg TAB (NF) PO SCH (09:00)
[2020-02-29 10:16] LABS: Troponin I 0.03 ng/mL (<0.03)
[2020-02-29 14:07] LABS: % Iron Saturation 8 % (15-55); Iron 22 ug/dL (50-212); Total Iron Binding Capacity 259 mcg/dL (250-450); Transferrin 185 mg/dL (203-362); Unsaturated Iron Binding < 244 ug/dL
[2020-02-29 14:22] LABS: TSH Ultra Thyroid Stim Horm 2.19 mcIU/mL (0.34-5.60)
[2020-02-29 14:33] LABS: Vitamin B12 311 pg/mL (180-914)
[2020-02-29 15:24] LABS: Ferritin 1825.2 ng/mL (11-307)
[2020-03-01] MEDS ORDERED: cefTRIAXone 1 gm/50 mL NS BAG 1 GM/50 ML BAG IVPB SCH (01:20)
[2020-03-01] MEDS: Heparin 5000 UNITS/ML 1 mL VIAL SUBCUT SCH ×2 (05:07→13:50)
[2020-03-01 06:31] LABS: ABS Eosinophils 0.1 10^3/ul (0-0.6); ABS Lymphocytes 0.6 10^3/ul (1.0-4.8); ABS Monocytes 0.3 10^3/ul (0-0.8); ABS Neutrophils 1.8 10^3/ul (1.5-7.7); Eosinophil % 3.6 %; Hematocrit 31 % (35-47); Hemoglobin 10.8 g/dL (12.0-16.0); Lymphocyte % 20.5 %; Mean Corpuscular HGB Conc 35 g/dL (31-36); Mean Corpuscular Hemoglobin 31 pg (27-31); Mean Corpuscular Volume 89 fL (80-97); Mean Platelet Volume 8.6 fL (7.4-10.4); Platelet Count 118 10^3/uL (150-450); Red Blood Count 3.48 10^6 /uL (3.70-4.87); Red Cell Distribution Width 13 % (10-15); White Blood Count 2.8 10^3/uL (3.5-10.8)
[2020-03-01 06:39] LABS: BUN/Creatinine Ratio 13.1 (8-20); Calcium 8.1 mg/dL (8.6-10.3); EGFR African American 115.4 (>60); EGFR Non-African American 95.4 (>60); Potassium 3.9 mmol/L (3.5-5.0)
[2020-03-01] MEDS: Venlafaxine XR 75 mg PO SCH (09:25)
[2020-03-01] MEDS: Aspirin EC 81 mg TAB.EC (enteric coated) PO SCH (09:26)
[2020-03-01 15:30] VITALS: BP 160/76
== END 2020-03-01 16:19 | disposition home or self-care (01) | DRG 690 ==
LOC: ED 16:19 → MEDTELE 16:19
PROVIDERS: ADMIT Internal Medicine; ATTEND Internal Medicine

== ENCOUNTER 2023-01-02 11:58 | Inpatient (IN) ==
[2023-01-02 12:14] LABS: ABS Eosinophils 0.1 10^3/uL (0.0-0.5); ABS Lymphocytes 1.4 10^3/uL (1.0-4.8); ABS Monocytes 0.5 10^3/uL (0.0-0.9); ABS Neutrophils 4.3 10^3/uL (1.5-7.6); ABS Nucleated RBC 0.01 10^3/ul; Eosinophil % 1.2 %; Hematocrit 38.6 % (35-45); Hemoglobin 13.4 g/dL (11.5-14.3); Mean Corpuscular Hemoglobin 30.9 pg (27-33); Mean Corpuscular Hgb Conc 34.8 g/dL (31-36); Mean Corpuscular Volume 88.7 fL (80-97); Mean Platelet Volume 8.4 fL (7.5-11.2); Nucleated Red Blood Cells % 0.2 /100 WBC (0.0-0.4); Platelet Count 219 10^3/uL (150-450); Red Blood Count 4.35 10^6/uL (3.63-4.92); White Blood Count 6.3 10^3/uL (3.8-11.8)
[2023-01-02] MEDS ORDERED: Iodixanol (CONTRAST) 320 MG/ML 100 ML SDV IV ONE (12:20)
[2023-01-02 12:22] LABS: Activated Partial Thrombo Time 30.1 seconds (26.0-38.0)
[2023-01-02 12:31] LABS: Albumin 4.4 g/dL (3.2-5.2); Albumin/Globulin Ratio 2.1 (1-3); Calcium 9.3 mg/dL (8.6-10.3); Creatinine, Serum 0.7 mg/dL (0.51-0.95); Direct Bilirubin 0.1 mg/dL (0.03-0.18); Globulin 2.1 g/dL (2-4); Indirect Bilirubin 0.5 mg/dL (0.3-1.0); Total Bilirubin 0.6 mg/dL (0.2-1.0); Total Protein 6.5 g/dL (6.4-8.9); eGFR CKD-EPI 88.5 (>60)
[2023-01-02] MEDS ORDERED: Ondansetron 4 mg VIAL 2 MG/ML 2 ml VIAL IV ONE (13:03)
[2023-01-02] MEDS ORDERED: NS 0.9% 1000 ml BAG 1,000 ML IV ONE (13:05)
[2023-01-02] MEDS ORDERED: Pantoprazole VIAL 40 MG VIAL IV ONE (14:03)
[2023-01-02] MEDS ORDERED: Acetaminophen IV 1 GM/100ML 1,000 MG/100 ML BAG IV ONE (14:03)
[2023-01-02] MEDS ORDERED: Prochlorperazine 5 mg/ml 2 ml VIAL (10 mg) IV ONE (14:04)
[2023-01-02] MEDS ORDERED: Acetaminophen IV 1 GM/100ML 1,000 MG/100 ML BAG IV PRN (14:05)
[2023-01-02] MEDS: Enoxaparin 40 MG/0.4 ML SYR SUBCUT SCH (16:13)
[2023-01-02] MEDS: Ondansetron 4 mg VIAL 2 MG/ML 2 ml VIAL IV PRN (17:37)
[2023-01-03 06:51] LABS: ABS Eosinophils 0.1 10^3/uL (0.0-0.5); ABS Lymphocytes 1.4 10^3/uL (1.0-4.8); ABS Monocytes 0.7 10^3/uL (0.0-0.9); ABS Neutrophils 5.4 10^3/uL (1.5-7.6); ABS Nucleated RBC 0.01 10^3/ul; Eosinophil % 0.7 %; Hematocrit 37.1 % (35-45); Mean Corpuscular Hgb Conc 35.1 g/dL (31-36); Mean Corpuscular Volume 88.1 fL (80-97); Mean Platelet Volume 8.4 fL (7.5-11.2); Nucleated Red Blood Cells % 0.1 /100 WBC (0.0-0.4); Platelet Count 203 10^3/uL (150-450); Red Blood Count 4.21 10^6/uL (3.63-4.92); Red Cell Distribution Width 12.9 % (12-17); White Blood Count 7.6 10^3/uL (3.8-11.8)
[2023-01-03 06:57] LABS: Calcium 8.9 mg/dL (8.6-10.3); Creatinine, Serum 0.52 mg/dL (0.51-0.95); Magnesium 1.8 mg/dL (1.9-2.7); Potassium 3.8 mmol/L (3.5-5.0)
[2023-01-03] MEDS: Ondansetron 4 mg VIAL 2 MG/ML 2 ml VIAL IV PRN ×2 (07:15→10:45)
[2023-01-03] MEDS ORDERED: Magnesium Sulfate IV 1GM/100ML 1 GM/100 ML BAG IV ONE (07:55)
[2023-01-03] MEDS ORDERED: KCL 20 MEQ/100 ML IVPREMIX 20 MEQ/100 ML BAG IV ONE (07:55)
[2023-01-03] MEDS: Venlafaxine XR 75 mg PO SCH (09:19)
[2023-01-03] MEDS: Enoxaparin 40 MG/0.4 ML SYR SUBCUT SCH (14:31)
[2023-01-03] MEDS ORDERED: Al Hydrox/Mg Hydrox/Simet LIQ 30 ML UDC PO PRN (17:20)
[2023-01-04] MEDS ORDERED: Potassium Chloride LIQUID 20 MEQ/15 ML LIQUID PO ONE ×2 (07:39→09:07)
[2023-01-04] MEDS ORDERED: Magnesium Sulfate IV 1GM/100ML 1 GM/100 ML BAG IV ONE (07:39)
[2023-01-04] MEDS ORDERED: Magnesium Hydroxide LIQ 30 ML UDC PO PRN (07:41)
[2023-01-04 08:08] LABS: Calcium 9.1 mg/dL (8.6-10.3); Creatinine, Serum 0.75 mg/dL (0.51-0.95); Magnesium 2.1 mg/dL (1.9-2.7); Potassium 3.9 mmol/L (3.5-5.0); eGFR CKD-EPI 81.4 (>60)
[2023-01-04] MEDS: Venlafaxine XR 75 mg PO SCH (08:51)
[2023-01-04] MEDS ORDERED: Aspirin EC 81 mg TAB.EC (enteric coated) PO SCH (09:00)
[2023-01-04] MEDS: Enoxaparin 40 MG/0.4 ML SYR SUBCUT SCH (15:38)
[2023-01-05] MEDS: Venlafaxine XR 75 mg PO SCH (08:15)
[2023-01-05] MEDS: Enoxaparin 40 MG/0.4 ML SYR SUBCUT SCH (14:06)
[2023-01-06] MEDS: Venlafaxine XR 75 mg PO SCH (07:37)
[2023-01-06 13:02] LABS: Urine Appearance Clear; Urine Bilirubin Negative (Negative); Urine Blood Negative (Negative); Urine Color Straw; Urine Glucose Negative (Negative); Urine Ketones Negative (Negative); Urine Nitrite Negative (Negative); Urine Protein Negative (Negative); Urine Specific Gravity 1.003 (1.002-1.030); Urine Urobilinogen Negative (Negative)
[2023-01-06] MEDS: Enoxaparin 40 MG/0.4 ML SYR SUBCUT SCH (13:28)
[2023-01-06] MEDS: Lidocaine PATCH 5% PATCH TRANSDERM SCH (15:11)
[2023-01-07] MEDS: Venlafaxine XR 75 mg PO SCH (09:15)
[2023-01-07] MEDS: Lidocaine PATCH 5% PATCH TRANSDERM SCH (09:17)
[2023-01-07 14:41] VITALS: BP 127/57
== END 2023-01-07 11:37 | DRG 65 ==
LOC: ED 11:58 → EDHOLD 11:58 → MEDTELE 15:53 → SUATTDRO 01-03 13:57
PROVIDERS: ADMIT Hospitalist; ATTEND Internal Medicine

== ENCOUNTER 2023-01-07 10:16 | Inpatient (IN) ==
[2023-01-07] MEDS ORDERED: Enoxaparin 40 MG/0.4 ML SYR SUBCUT SCH (11:00)
[2023-01-07] MEDS ORDERED: Ondansetron ODT 4 mg TAB 4 MG TAB SL PRN (11:11)
[2023-01-07] MEDS: Enoxaparin 40 MG/0.4 ML SYR SUBCUT SCH (15:54)
[2023-01-08] MEDS ORDERED: Influenza vaccine *QUAD* *2023-24* 0.5 ML SYRINGE IM ONE (09:00)
[2023-01-08] MEDS: Aspirin EC 325 mg TAB.EC PO SCH (10:14)
[2023-01-08] MEDS: Venlafaxine XR 75 mg PO SCH (10:14)
[2023-01-08] MEDS: Lidocaine PATCH 5% PATCH TRANSDERM SCH (10:18)
[2023-01-08] MEDS: Enoxaparin 40 MG/0.4 ML SYR SUBCUT SCH (17:39)
[2023-01-09 06:50] LABS: ABS Basophils 0.1 10^3/uL (0.0-0.1); ABS Eosinophils 0.2 10^3/uL (0.0-0.5); ABS Lymphocytes 1.7 10^3/uL (1.0-4.8); ABS Monocytes 0.9 10^3/uL (0.0-0.9); ABS Neutrophils 4.2 10^3/uL (1.5-7.6); Eosinophil % 2.3 %; Hematocrit 39.9 % (35-45); Hemoglobin 13.6 g/dL (11.5-14.3); Lymphocyte % 24.1 %; Mean Corpuscular Hemoglobin 30.6 pg (27-33); Mean Corpuscular Hgb Conc 34.1 g/dL (31-36); Mean Corpuscular Volume 89.7 fL (80-97); Mean Platelet Volume 8.3 fL (7.5-11.2); Platelet Count 218 10^3/uL (150-450); Red Blood Count 4.45 10^6/uL (3.63-4.92); Red Cell Distribution Width 12.9 % (12-17)
[2023-01-09 07:05] LABS: Albumin/Globulin Ratio 1.5 (1-3); Calcium 8.7 mg/dL (8.6-10.3); Creatinine, Serum 0.7 mg/dL (0.51-0.95); Globulin 2.7 g/dL (2-4); Potassium 4.3 mmol/L (3.5-5.0); Total Bilirubin 0.3 mg/dL (0.2-1.0); Total Protein 6.7 g/dL (6.4-8.9); eGFR CKD-EPI 87.9 (>60)
[2023-01-09] MEDS: Aspirin EC 325 mg TAB.EC PO SCH (08:18)
[2023-01-09] MEDS: Venlafaxine XR 75 mg PO SCH (08:19)
[2023-01-09] MEDS: Lidocaine PATCH 5% PATCH TRANSDERM SCH (08:21)
[2023-01-09] MEDS: Enoxaparin 40 MG/0.4 ML SYR SUBCUT SCH (16:12)
[2023-01-10] MEDS: Aspirin EC 325 mg TAB.EC PO SCH (11:52)
[2023-01-10] MEDS: Venlafaxine XR 75 mg PO SCH (11:53)
[2023-01-10] MEDS: Lidocaine PATCH 5% PATCH TRANSDERM SCH (11:53)
[2023-01-10] MEDS: Enoxaparin 40 MG/0.4 ML SYR SUBCUT SCH (17:13)
[2023-01-11] MEDS: Venlafaxine XR 75 mg PO SCH (08:52)
[2023-01-11] MEDS: Aspirin EC 325 mg TAB.EC PO SCH (08:52)
[2023-01-11] MEDS: Lidocaine PATCH 5% PATCH TRANSDERM SCH (08:53)
[2023-01-11] MEDS: Enoxaparin 40 MG/0.4 ML SYR SUBCUT SCH (16:51)
[2023-01-12] MEDS: Venlafaxine XR 75 mg PO SCH (08:02)
[2023-01-12] MEDS: Aspirin EC 325 mg TAB.EC PO SCH (08:02)
[2023-01-12] MEDS: Lidocaine PATCH 5% PATCH TRANSDERM SCH (08:06)
[2023-01-12] MEDS: Enoxaparin 40 MG/0.4 ML SYR SUBCUT SCH (16:23)
[2023-01-13] MEDS: Venlafaxine XR 75 mg PO SCH (08:51)
[2023-01-13] MEDS: Aspirin EC 325 mg TAB.EC PO SCH (08:51)
[2023-01-13] MEDS: Lidocaine PATCH 5% PATCH TRANSDERM SCH ×2 (08:52→12:44)
[2023-01-13] MEDS: Enoxaparin 40 MG/0.4 ML SYR SUBCUT SCH (16:44)
[2023-01-14] MEDS: Aspirin EC 325 mg TAB.EC PO SCH (08:21)
[2023-01-14] MEDS: Venlafaxine XR 75 mg PO SCH (08:21)
[2023-01-14] MEDS: Lidocaine PATCH 5% PATCH TRANSDERM SCH (11:36)
[2023-01-14] MEDS: Enoxaparin 40 MG/0.4 ML SYR SUBCUT SCH (16:05)
[2023-01-15 06:08] VITALS: BP 98/54
[2023-01-15] MEDS: Venlafaxine XR 75 mg PO SCH (08:34)
[2023-01-15] MEDS: Aspirin EC 325 mg TAB.EC PO SCH (08:34)
[2023-01-15] MEDS: Lidocaine PATCH 5% PATCH TRANSDERM SCH (08:37)
== END 2023-01-15 11:40 | disposition home or self-care (01) | DRG 66 ==
LOC: PMRU 14:01
PROVIDERS: ADMIT Physical Medicine & Rehabilitation; ATTEND Physical Medicine & Rehabilitation